=== PATIENT | female | born 1930 | race Caucasian/White ===

== ENCOUNTER 2018-06-13 13:33 | Emergency (ER) | payer MEDICARE, OTHER, MEDICAID ==
--- OUTSIDE RECORDS SUMMARY | 2018-06-13 14:10 | XMS REPORT | Continuity of Care Document ---
:1930 Author Organization [facility] Address [address], [place] [id number] Phone Care Team Providers Name Role Phone Ervin Davis PA-C Unavailable Unavailable Allergies, Adverse Reactions, Alerts Substance Reaction Status morphine Active Sulfa (Sulfonamide Antibiotics) Active aspirin Active Penicillins Active KETOROLAC TROMETHAMINE Active Medications Medication Instructions Dosage Effective Dates Status Comments (start - stop) IBANDRONATE SODIUM TAKE 1 TABLET BY 150 MG - Active 150 MG TAB MOUTH EVERY MONTH ON THE SAME DAY. TAKE WITH FULL GLASS OF WATER AND REMAIN UPRIGHT FOR 60 MINUTES prednisone 1 mg take 1 - 2 Tablet 1-2 Tablet - Active tablet by Oral route every morning with food or; as directed gabapentin 100 mg take 1 - 3 Capsule 1-3 Capsule - Active capsule by Oral route every day Acidophilus capsule - Active MIRALAX (unknown take 1 packet by Not Available - Active strength) oral route every day mixed with 8 oz. water, juice, soda, coffee or tea as needed potassium chloride take 1 tablet by 20 MEQ - Active ER 20 mEq oral route every tablet,extended day with food release propranolol 40 mg take 1 tablet by 40 MG - Active tablet oral route every day Flovent Diskus 100 inhale 1 puff by 100 MCG - Active mcg/actuation powder inhalation route 2 for inhalation times every day simvastatin 5 mg take 1 tablet by 5 MG - Active tablet oral route every day in the evening Nexium 40 mg take 1 capsule by 40 MG - Active capsule,delayed oral route every release day Spiriva with inhale 1 capsule 18 MCG - Active HandiHaler 18 mcg & (18MCG) by inhalation Caps inhalation route every day Tylenol 325 mg Tab PRN as needed - Active multivitamin Tab take 1 tablet by - Active oral route every day with food Problems Condition Effective Dates Clinical Status Comments (start - stop) Giant cell arteritis with polymyalgia rheumatica Age-related osteoporosis without current pathological fracture Other detention drug therapy Raynaud's disease w/o gangrene Giant cell arteritis with polymyalgia rheumatica Age-related osteoporosis without current pathological fracture 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 Pain in right shoulder Giant cell arteritis with polymyalgia rheumatica Age-related osteoporosis without current pathological fracture Giant cell arteritis with polymyalgia rheumatica Age-related osteoporosis without current pathological fracture Giant cell arteritis with polymyalgia rheumatica Age-related osteoporosis without current pathological fracture Polymyalgia rheumatica Age-related osteoporosis without current pathological fracture Giant cell arteritis with polymyalgia rheumatica Age-related osteoporosis without current pathological fracture Mycobacterial infection, unspecified Giant cell arteritis with polymyalgia rheumatica Age-related osteoporosis without current pathological fracture Polymyalgia rheumatica Age-related osteoporosis without current pathological fracture Polymyalgia rheumatica Age-related osteoporosis without current pathological fracture Polymyalgia rheumatica Age-related osteoporosis without current pathological fracture Polymyalgia rheumatica Polymyalgia rheumatica Age-related osteoporosis without current pathological fracture Polymyalgia rheumatica Age-related osteoporosis without current pathological fracture Polymyalgia rheumatica Age-related osteoporosis without current pathological fracture Osteoporosis - Active Polymyalgia rheumatica - Active Mapped from [facility] Chronic Conditions table on 08/09/2014 by the ICD9 to SNOMED Bulk Mapping Utility. The mapped diagnosis code was Polymyalgia rheumatica, 725, added by Mauro Fajardo MD, with responsible provider Mauro Fajardo MD. Onset date 12/24/2011; last addressed on 03/17/2014. Rotator cuff syndrome - Active Mapped from [facility] Chronic Conditions table on 09/22/2014 by the ICD9 to SNOMED Bulk Mapping Utility. The mapped diagnosis code was Bursitis shoulder, 726.10, added by Imani Monte, with responsible provider Imani Boothe PA-C. Onset date 12/25/2012; last addressed on 12/25/2012. Peptic ulcer - Active Mapped from [facility] Chronic Conditions table on 08/09/2014 by the ICD9 to SNOMED Bulk Mapping Utility. The mapped diagnosis code was PUD, 533.90, added by Mauro Fajardo MD, with responsible provider Mauro Fajardo MD. Onset date 12/24/2011; last addressed on 12/24/2011. Degeneration of - Active Mapped from [facility] Chronic intervertebral disc Conditions table on 08/09/2014 by the ICD9 to SNOMED Bulk Mapping Utility. The mapped diagnosis code was Degeneration of intervertebral disc, site unspecif, 722.6, added by Mauro Fajardo MD, with responsible provider Mauro Fajardo MD. Onset date 12/24/2011; last addressed on 04/05/2013. Degenerative joint - Active Mapped from [facility] Chronic disease involving Conditions table on multiple joints 08/09/2014 by the ICD9 to SNOMED Bulk Mapping Utility. The mapped diagnosis code was Osteoarthritis, 715.09, added by Mauro Fajardo MD, with responsible provider Mauro Fajardo MD. Onset date 12/24/2011; last addressed on 12/25/2012. Rheumatoid factor - Active negative Procedures Procedure Date No information Results Test Name Date and Time Measure Units Reference Range Abnormal Flag Status Comments No information Advance Directives Directive Yes / No Effective Date File Name No information Encounters Encounter Practice Location Reason(s) Diagnoses Date Provider Providers Description For Visit Copied on Encounter Arthritis Arthritis [facility] SHELL Mueller. Reji Mendoza 8 5794 PLLC, 5794 PLLC [facility], [place], [place], [id number], [id number], [place]. [place] tel:[phone] tel:[phone] Arthritis Arthritis Giant cell [facility] arteritis with SHELL Mueller. Provider: Reji Mendoza polymyalgia 8 5794 Kay[facility], 5794 PLLC rheumaticaAge- [facility] Ever CEBALLOS, [facility], [address] [facility], osteoporosis [place], [place], [place], [place], [place], [place] [id number], [place], [address]. [id number], pathological [place]. tel:[phone] [place] fractureOther tel:+ [phone] tel:[phone] detention drug [phone] lting [id number] therapyRaynaud Provider: 's disease w/o Meggan gangarima Mobley, [address] [facility], [place], [address]. tel:[phone] alist: Ted Gardiner MD, [address] [place], [address]. tel:[phone] lting Provider: Mike Frey MD, [address] [place], [address]. tel:[phone] [facility] Provider: Ny Olmstead MD, [address] [place] [address], [address]. tel:[phone] Arthritis Arthritis [facility] SHELL Mueller. [facility] 8 5794 PLLC, 5794 PLLC [facility], [place], [place], [place], [place], [place], [id number], [id number], [place]. [place] tel:[phone] tel:[phone] Arthritis Arthritis Giant cell [facility] arteritis with SHELL Mueller. Provider: [facility] polymyalgia 8 5794 Kaylen [facility], 5794 PLLC rheumaticaAge- [facility] Ever CEBALLOS, [facility], [address] [facility], [facility], , [place], [place], [place], [place], current [id number], [place], [address]. [id number], pathological [place]. tel:[phone] [place] fractureOther tel:[phone] tel:[phone] detention drug [phone] lting [phone] therapyPain in Provider: right shoulder Meggan Mobley, [address] [facility], [place], [address]. tel:[phone] alist: Jeremias Lowry MD, [address] [facility] [address], [place], [address]. tel:[phone] lting Provider: Mike Frey MD, [address] [place], [address]. tel:[phone] ring Provider: [place], [address] [place] [address], [address]. tel:[phone] Arthritis Arthritis May-0 [facility] 4-201 SHELL Mueller. [facility] 8 5794 PLLC, [address] [facility], [place], [place], [place], [id number], [id number], [place]. [place] tel:[phone] tel:[phone] Arthritis Arthritis Giant cell Apr-2 [facility] Consulting [facility] arteritis with 3 SHELL Mueller. Provider: Reji Mendoza polymyalgia 8 5794 Kaylen [facility], 5794 PLLC rheumaticaAge- [facility] Curtis MD, [facility], [address] [place], osteoporosis [place], [place], [place], [place], [place], [place], [place] [id number], [place], [address]. [id number], pathological [place]. tel:[phone] [place] fracture tel:[phone] tel:[phone] lting [id number] Provider: Meggan Mobley, [address] [place] [address], [place], [address]. tel:[phone] alist: Jeremias Lowry MD, [address] [facility] [address], [place], [address]. tel:[phone] lting Provider: Mike Frey MD, [address] [place], [address]. tel:[phone] ring Provider: Ny Olmstead MD, [address] [place] [address], [address]. tel:[phone] Arthritis Arthritis Giant cell Dec-1 [facility] arteritis with SHELL Mueller. Provider: Reji Mendoza polymyalgia 7 5794 Kaylen [facility], 5794 PLLC rheumaticaAge- Nadeem Curtis MD, [facility], [address] [place], osteoporosis [place], , [place], [place], [place], [place], [place] [id number], [place], [address]. [id number], pathological [place]. tel: [place] fracture tel: [phone] tel:[phone] lting [phone] Provider: Meggan Mobley, [address] [place] [address], [place], [address]. tel:[phone] alist: Jeremias Lowry MD, [address] [facility] [address] [facility], [place], [address]. tel:[phone] lting Provider: Mike Frey MD, [facility] [place], [address]. tel:[phone] ring Provider: Ny Olmstead MD, [address] [place] [address], [address]. tel:[phone] Arthritis Arthritis Giant cell Sep- [facility] arteritis with SHELL Mueller. Provider: [facility] polymyalgia 7 5794 Kaylen Mezu [facility], 5794 PLLC rheumaticaAge- [facility] Ever CEBALLOS, [facility], [facility], osteoporosis [place], , [place], [place], [place], [place], current [id number], [place], [address]. [id number], pathological [place]. tel: [place] fracture tel: [phone] tel:[phone] lting [phone] Provider: Meggan Mobley, [address] [place] [address], [place], [address]. tel:[phone] alist: Jeremias Lowry MD, [address] [facility] [address] [facility], [place], [address]. tel:[phone] lting Provider: Mike Frey MD, [facility] [place], [address]. tel:[phone] ring Provider: Ny Olmstead MD, [address] [place] [address], [address]. tel:[phone] Arthritis Arthritis Polymyalgia Rosalino-2 Susan [facility] [place] [facility] rheumaticaAge- SHELL Mueller. Provider: [facility] related 7 5794 Kaylen Mezu [facility], 5794 PLLC osteoporosis [facility] Curtis MD, [facility] without [place], [address] [place], current [place], [place], [place], pathological [place], [place], [place], fracture [id number], [place], [address]. [id number], [place]. tel:[phone] [place] tel:[phone] tel:[phone] lting [id number] Provider: Meggan Mobley, [address] [place] [address], [place], [address]. tel:[phone] alist: Jeremias Lowry MD, [address] [facility] [address], [place], [address]. tel:[phone] lting Provider: Mike Frey MD, [address] [facility], [place], [address]. tel:[phone] ring Provider: [place], [address] [place] [address], [address]. tel:[phone] Arthritis Arthritis Giant cell Apr-2 Tana CEBALLOS Consulting [facility] arteritis with 201 Mauro. Provider: Associates Reji polymyalgia 7 5794 Skyler PLLC, 5794 PLLC rheumaticaAge- [facility] Willy [facility] related MD Chavez, [address] [place], osteoporosis [place], [facility] [place], without [place], [place], [place], current [id number], [place], [place], [id number], [place]. [address]. [place] fractureMycoba tel:+ tel: tel:+ cterial [phone] [id number] infection, lting unspecified Provider: Meggan Mobley, [address] [facility], [place], [address]. tel:[phone] alist: Jeremias Lowry MD, [address] [facility] [address], [place], [address]. tel:[phone] ring Provider: Ny Olmstead MD, [address] [place] [address], [address]. tel:[phone] Arthritis Arthritis Giant cell Mar-0 [place]-[facility] [place] [facility] arteritis with 3-201 bhavana Elizondo. Provider: [facility] polymyalgia 7 5794 Skyler PLLC, 5794 PLLC rheumaticaAge- [facility] related MD Chavez, [address] [place], osteoporosis [place], [place], without [place], [place], [place], current [id number], [place], [place], [id number], [place]. [address]. [place] fracture tel: tel: tel:[phone] [phone] lting Provider: Meggan Mobley, [address] [place] [address], [place], [address]. tel:[phone] alist: Jeremias Lowry MD, [address] [facility] [address], [place], [address]. tel:[phone] ring Provider: Ny Olmstead MD, [address] [place] [address], [address]. tel:[phone] Arthritis Arthritis Polymyalgia Anshul- Rybinski [facility] rheumaticaAge- 1201 SHELL Mueller. Provider: Associates [facility] related 7 5794 Skyler RAMIREZ, 5794 PLLC osteoporosis [facility] Willy [facility] without MD Chavez, [address] [place], current [place], [place], pathological [place], [place], [place], fracture [id number], [place], [place], [id number], [place]. [address]. [place] tel: tel: tel:[phone] [phone] lting Provider: Meggan Mobley, [address] [place] [address], [place], [address]. tel:[phone] alist: Jeremias Lowry MD, [address] [facility] [address], [place], [address]. tel:[phone] ring Provider: Ny Olmstead MD, [address] [place] [address], [address]. tel:[phone] Arthritis Arthritis Polymyalgia Sep-2 Rybinski [facility]umaticWater[facility] Hospitale SHELL Mueller. Provider: Associates Associates related 6 5794 Skyler PLLC, 5794 PLLC osteoporosis [place] Willy [facility] without Chavez, , [address] [place], current [place], [place], pathological [place], [place], [place], fracture [id number], [place], [id number], [place]. [address]. [place] tel:+[phone] tel:+[phone] tel:[phone] [id number] lting Provider: Meggan Mobley, [address] [place] [address], [place], [address]. tel:[phone] ring Provider: Ny Olmstead MD, [address] [place] [address], [address]. tel:[phone] Arthritis Arthritis Polymyalgia Ameya-2 bini [facility] SHELL Mueller. Provider: Associates Associates related 6 5794 Skyler PLLC, 5794 PLLC osteoporosis [place] Willy [facility] without Chavez, , [address] [place], current [place], [place], [place], [place], [place], fracture [id number], [place], [id number], [place]. [address]. [place] tel:+[phone] tel:+315 tel:[phone] [id number] lting Provider: Meggan Mobley, [address] [place] [address], [place], [address]. tel:[phone] ring Provider: Ny Olmstead MD, [address] [place] [address], [address]. tel:[phone] Arthritis Arthritis Polymyalgia Apr-2 [place] rheumatica SHELL Mueller. Provider: Reji Mendoza 6 5794 [facility], 5794 PLLC [facility] [facility] MD Chavez, [address] [place], [place], [place], [place], [place], [place], [id number], [place], [id number], [place]. [address]. [place] tel:+[phone] tel:+315 tel:[phone] [id number] lting Provider: Meggan Mobley, [address] [place] [address], [place], [address]. tel:[phone] ring Provider: Ny Olmstead MD, [address] [place] [address], [address]. tel:[phone] Arthritis Arthritis Polymyalgia [facility] rheumaticaAg SHELL Mueller. Provider: Reji Mendoza related 6 5794 [facility], 5794 PLLC osteoporosis [facility] Willy [facility] without MD Chavez, [address] [place], current [place], [place], [place], [place], [place], fracture [id number], [place], [id number], [place]. [address]. [place] tel:+[phone] tel:+315 tel:[phone] [id number] lting Provider: Meggan Mobley, [address] [place] [address], [place], [address]. tel:[phone] ring Provider: Ny Olmstead MD, [address] [place] [address], [address]. tel:[phone] Arthritis Arthritis Polymyalgia [facility] SHELL Mueller. Provider: Reji Mendoza related 6 5794 [facility], 5794 PLLC osteoporosis [facility] Willy [facility] without MD Chavez, [address] [place], current [place], [place], [place], [place], [place], fracture [id number], [place], [place], [id number], [place]. [address]. [place] tel:+[phone] tel:+[phone] tel:[phone] [id number] lting Provider: Meggan Mobley, [address] [place] [address], [place], [address]. tel:[phone] ring Provider: Ny Olmstead MD, [address] [place] [address], [address]. tel:[phone] Arthritis Arthritis Polymyalgia Nov-0 [facility] rheumaticaAge- PA-Mell Mueller. Provider: Reji Mendoza [facility] 5 5794 Skyler RAMIREZ, 5794 PLLC osteoporosis [facility] MD Chavez, [address] [place], [facility], [facility], [facility], [place], [place], fracture [id number], [place], [place], [id number], [place]. [address]. [place] tel:+[phone] tel:+3152 tel:[phone] 196961 lting Provider: Meggan Mobley, [facility], [place], [address]. tel:[phone] ring Provider: Ny Olmstead MD, [address] [place] [address], [address]. tel:[phone] Arthritis Arthritis Feb- [facility] PA-Mell Mueller. Provider: Reji Mendoza 5 5794 Ny RAMIREZ, 5794 PLLC Nadeem Olmstead MD, [facility], [address] [place] [address], [place], [place], [place], [place], [place], [place], [id number], [place], [address]. [id number], [place]. tel:[phone] [place] tel:[phone] tel:[phone] Arthritis Arthritis Apr-2 [facility] PA-C Provider: Reji Mendoza 3 [place]. Ny RAMIREZ, 5794 PLLC Keyla Olmstead MD, [address], [place], [place], [place], [place], [place], [place], [place], [address]. [id number], [id number], tel:[phone] [facility]. 65[address]30 tel:+[phone] tel:[phone] Arthritis Arthritis Aug- [facility] 0-201 SHELL Diallo. Provider: [facility] 1 5794 [facility], 5794 PLL Nadeem Olmstead MD, [facility], [address] [place] [address], [place], [place], [place], [place], [id number], [place], [address]. [id number], . tel:[phone] tel:[phone] tel:[phone] Family History Family Member Diagnosis Age At Onset Mother Heart Failure 83 Father Heart failure 90 Immunizations Vaccine Date Status Comments Influenza, injectable, MDCK, administered Note: approx ; Source : Other Flucelvax Quad 2017-2018Y Provider Influenza, injectable, administered Note: approx per pt ; Source : quadrivalent, split virus, 18 Other Provider years or older Afluria Quad 9153-5171 Influenza, injectable, administered Note: approx ; Source: Other trivalent, split virus, 4 Provider years and older, Fluvirin 5975-7809 Flu (split) (3 yrs or older) administered Note: Invalid documented admin date was . ; Source: Other Provider Zoster administered Source: New Immunization Record pneumo (2 yrs or older) administered Source: Other Provider (PPV23) Payers Payer name Insurance type Covered alliance party ID Authorization(s) Medicare [id number] [facility] CI [id number] Social History Type Description Quantity Date Captured Comments Alcohol Use Details Unknown Caffeine Use Details Unknown Tobacco Use Status Unknown Smoking Status Unknown Sex Female Vital Signs Date / Height Weight BMI Pulse Blood Temperature Respiratory Body Head BMI Pulse Inhaled Time: Rate Pressure Rate Surface Circumference percentile Ox Ox Area No information Chief Complaint And Reason For Visit No information Reason For Referral Reason For Referral No information Plan Of Treatment Date Type Action Status Referral Ordered: ordered *SHOULDER X-RAY, COMPLETE, 2 VIEW Right shoulder Appointment Malka Astorga BOOKED History Of Present Illness Encounter Date Complaint History Of Present Illness No information Functional Status Date Functional Assessment No information Medications Administered Medication Instructions Dosage Effective Dates (start - stop) Status Comments No information Instructions Date Instruction Additional Information Labs ordered to check blood counts, liver and kidney functions to monitor safety of medication. Discussed / Reviewed Labs call if symptoms worsen maintain adequate water intake every day Maintain adequate core warmth. Wear warm, wind-proof gloves and boots. Risks/benefits of medications reviewed Avoid sun and use high SPF sunblock Labs ordered to check disease activity. Risks/benefits of medications reviewed Avoid sun and use high SPF sunblock Diet: Instructed on appropriate calcium and vitamin D intake. Labs ordered to check disease activity. Labs ordered to check blood counts, liver and kidney functions to monitor safety of medication. Discussed / Reviewed Labs call if symptoms worsen maintain adequate water intake every day Risks/benefits of medications reviewed Labs ordered to check disease activity. Discussed / Reviewed Labs call if symptoms worsen maintain adequate water intake every day Risks/benefits of medications reviewed Diet: Instructed on appropriate calcium and vitamin D intake. Labs ordered to check disease activity. Discussed / Reviewed Labs Patient plan printed and given along with recommendations call if symptoms worsen maintain adequate water intake every day Labs ordered to check disease activity. Discussed / Reviewed Labs Patient plan printed and given along with recommendations call if symptoms worsen maintain adequate water intake every day Reviewed importance of compliance/adherence to medications prescribed Risks/benefits of medications reviewed Risks/benefits of medications reviewed Labs ordered to check disease activity. Discussed / Reviewed Labs Patient plan printed and given along with recommendations call if symptoms worsen maintain adequate water intake every day Patient plan printed and given along with recommendations call if symptoms worsen 15mg day of prednisone for 10days,then 10mg for 10 d,then 5mg d for 10d Risks/benefits of medications reviewed Labs ordered to check disease activity. Discussed / Reviewed Labs call at 4pm to talk to Dr. Fajardo about sed rate call if symptoms worsen Discussed / Reviewed Labs Patient plan printed and given along with recommendations call if symptoms worsen maintain adequate water intake every day Risks/benefits of medications reviewed Labs ordered to check disease activity. Risks/benefits of medications reviewed Diet: Instructed on appropriate calcium and vitamin D intake. Labs ordered to check disease activity. Discussed / Reviewed Labs Patient plan printed and given along with recommendations call if symptoms worsen maintain adequate water intake every day Diet: Instructed on appropriate calcium and vitamin D intake. Limited exercise
--- OUTSIDE RECORDS SUMMARY | 2018-06-13 14:10 | XMS REPORT | Continuity of Care Document ---
:1930 Author Organization [facility] Address [address], [place] [id number] Phone Care Team Providers Name Role Phone [...] capsule by Oral route every day Acidophilus - Active capsule MIRALAX (unknown take 1 packet by Not [...] puff by 100 MCG - Active mcg/actuation inhalation route 2 powder for times every day inhalation simvastatin 5 mg take 1 tablet by 5 MG - Active tablet oral route every day in the evening Nexium 40 mg take 1 capsule by 40 MG - Active capsule,delayed oral route every release day Spiriva with inhale 1 capsule 18 MCG - Active HandiHaler 18 mcg (18MCG) by & inhalation Caps inhalation route every day Tylenol 325 mg Tab PRN as needed - Active multivitamin Tab take 1 tablet by - Active oral route every day with food rifampin 300 mg take 2 tabs every - No Longer capsule fri, fri and fri Active azithromycin 500 take 1 tablet by - No Longer mg tablet oral route every Active mon, wed, and fri ethambutol 400 mg take 3 tabs every - No Longer tablet mon, wed and fri Active Problems Condition Effective Dates Clinical Status Comments (start - stop) Giant cell arteritis with polymyalgia rheumatica Age-related osteoporosis without current pathological fracture Other retirement drug therapy Raynaud's disease w/o gangrene Giant cell arteritis with polymyalgia rheumatica 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 The mapped diagnosis code was Polymyalgia rheumatica, 725, added by Mauro Fajardo MD, with responsible provider Mauro Fajardo MD. Onset date 12/24/2011; last addressed on 03/17/2014. Rotator cuff syndrome - Active Mapped from [facility] Chronic Conditions table on 09/22/2014 by the ICD9 to SNOMED Bulk Mapping Utility. The mapped diagnosis code was Bursitis shoulder, 726.10, added by Imani Monte, with responsible provider Imani Boothe PA-C. Onset date 12/25/2012; last addressed on 12/25/2012. Peptic ulcer - Active Mapped from [facility] Chronic Conditions table on 08/09/2014 by the ICD9 to SNOMED Bulk Mapping Utility. The mapped diagnosis code was PUD, 533.90, added by Mauro Fajardo MD, with responsible provider Mauro Fajardo MD. Onset date 12/24/2011; last addressed on 12/24/2011. Degeneration of - Active Mapped from [facility] Chronic intervertebral disc Conditions table on 08/09/2014 by the ICD9 to SNOMED Bulk Mapping Utility. The mapped diagnosis code was Degeneration of intervertebral disc, site unspecif, 722.6, added by Mauro Fajardo MD, with responsible provider Mauro Fajardo MD. Onset date 12/24/2011; last addressed on 04/05/2013. Degenerative joint - Active Mapped from [facility] Chronic disease involving Conditions table on multiple joints 08/09/2014 by the ICD9 to SNOMED Bulk Mapping Utility. The mapped diagnosis code was Osteoarthritis, 715.09, added by Mauro Fajardo MD, with responsible provider Mauro Fajardo MD. Onset date 12/24/2011; last addressed on 12/25/2012. Rheumatoid factor - Active negative Procedures Procedure Date ROUTINE VENIPUNCTURE COMPLETE CBC W/AUTO DIFF WBC RBC SED RATE, AUTOMATED ASSAY OF CREATININE TRANSFERASE (AST) (SGOT) ASSAY OF SERUM ALBUMIN ANTINUCLEAR ANTIBODIES COMPLEMENT, ANTIGEN OFFICE/OUTPATIENT VISIT, EST NUCLEAR ANTIGEN ANTIBODY DNA ANTIBODY Results Test Name Date and Time Measure Units Reference Range Abnormal Flag Status Comments Panel Description: CBC Final WBC 16:33:00 6.8 10 3.7-10.1 Final RBC 16:33:00 4.72 10 3.50-5.50 Final HGB 16:33:00 10.2 g/dL 12.0-16.0 L Final HCT 16:33:00 34.9 % 36.0-48.0 L Final MCV 16:33:00 73.9 fL 80.0-100.0 L Final MCH 16:33:00 21.7 pg 26.0-34.0 L Final MCHC 16:33:00 29.3 g/dL 31.0-37.0 L Final RDW 16:33:00 13.5 % 10.0-15.0 Final PLATELETS 16:33:00 203 10 150-500 Final MPV 16:33:00 7.2 fL 6.0-10.0 Final CHRIS# 16:33:00 4.87 10 2.10-8.00 Final LYM# 16:33:00 1.39 10 1.00-5.00 Final MONO# 16:33:00 0.37 10 0.10-1.00 Final EOS# 16:33:00 0.1 10 0.0-0.5 Final BASO# 16:33:00 0.0 10 0.0-0.2 Final CHRIS% 16:33:00 71.6 % 50.0-80.0 Final LYM% 16:33:00 20.4 % 25.0-50.0 L Final MONO% 16:33:00 5.5 % 2.0-10.0 Final EOS% 16:33:00 1.9 % 0.0-5.0 Final BASO% 16:33:00 0.5 % 0.0-4.0 Final Panel Description: Chromatin IgG Final Chromatin 16:33:00 3.0 0.0-20.0 Final Interpretation: Negative <20; Moderate Positive 20-60; Positive >60.

Panel Description: ESR Final ESR 16:33:00 21 mm/Hr 0-20 H Final Panel Description: ALBUMIN Final ALB 16:33:00 3.4 g/dL 3.4-4.4 Final Panel Description: AST Final AST 16:33:00 19 U/L 15-37 Final Panel Description: C4 Final C4 16:33:00 18.9 mg/dL 14.7-40.3 Final Panel Description: CREATININE Final CREATININE 16:33:00 1.0 mg/dL 0.6-1.2 Final eGFR 16:33:00 52.6 mL/min/1.73m Final Advance Directives Directive Yes / No Effective Date File Name No information Encounters Encounter Practice Location Reason(s) Diagnoses Date Provider Providers Description For Visit Copied on Encounter OFFICE/OUTPA Arthritis Arthritis GCA (chief Giant cell [facility] Consulting TIENT VISIT, Health Health complaint) arteritis with SHELL Mueller. Provider: LARA Mendoza polymyalgia 8 5794 [facility], 5794 PLLC rheumaticaAge- [facility] Ever [facility], [facility], [address] [facility], osteoporosis [facility], [place], [facility], [place], [place], [place] [id number], [place], [address]. [id number], pathological [place]. tel:[phone] [place] fractureOther tel:[phone] tel:[phone] retirement drug [phone] lting [phone] therapyRaynaud Provider: 's disease w/o Meggan gangrene Leandra, [address] [facility], [place], [address]. tel:[phone] alist: Ted Gardiner MD, [address] [place], [address]. tel:[phone] lting Provider: Mike Frey MD, [address] [place], [address]. tel:[phone] ring Provider: [place], [address] [place] [address], [address]. tel:[phone] Arthritis Arthritis [facility] SHELL Mueller. [facility] 8 5794 PLLC, 5794 PLLC [facility], [place], [place], [place], [id number], [id number], [place]. [place] tel:[phone] tel:[phone] Arthritis Arthritis Giant cell Dec- [facility] arteritis with 5- SHELL Mueller. Provider: [facility] polymyalgia 8 5794 [facility], 5794 PLLC rheumaticaAge- Nadeem Curtis MD, [facility], [address] [place], osteoporosis [place], [address], [place], without [place], [place], [place], [place] [id number], [place], [address]. [id number], pathological [place]. tel:[phone] [place] fractureOther tel:[phone] tel:[phone] retirement drug [phone] lting [phone] therapyPain in Provider: right shoulder Meggan Mobley, [facility], [place], [address]. tel:[phone] alist: Jeremias Lowry MD, [address] [facility] [address], [place], [address]. tel:[phone] lting Provider: Mike Frey MD, [address] [place] [address], [address]. tel:[phone] [facility] Provider: Ny Olmstead MD, [address] [place] [address], [address]. tel:[phone] Arthritis Arthritis May-0 [facility] 4- SHELL Mueller. [facility] 8 5794 PLLC, 5794 PLLC [facility], [place], [place], [place], [id number], [id number], [place]. [place] tel:[phone] tel:[phone] Arthritis Arthritis Giant cell Aug- [facility] arteritis with 3-201 SHELL Mueller. Provider: [facility] polymyalgia 8 5794 [facility], 5794 PLLC rheumaticaAge- [facility] MD, [facility], [address] [facility], osteoporosis [place], [place], [place], without [place], [place], [place], [place] [id number], [place], [address]. [id number], pathological [place]. tel:+ [place] fracture tel: [phone] tel:[phone] lting [phone] Provider: Meggan Mobley, [address] [place] [address], [place], [address]. tel:[phone] alist: Jeremias Lowry MD, [address] [place] [address] [address] [facility], [place], [address]. tel:[phone] lting Provider: Mike Frey MD, [facility] [place], [address]. tel:[phone] ring Provider: Ny Olmstead MD, [address] [place] [address], [address]. tel:[phone] Arthritis Arthritis Giant cell May- [facility] arteritis with SHELL Mueller. Provider: [facility] polymyalgia 7 5794 [facility], 5794 [facility]C [facility] Ever [facility], [facility], [address] [facility], osteoporosis [place], [place], [place], without [place], [place], [place], [place] [id number], [place], [address]. [id number], pathological [place]. tel: [place] fracture tel: [phone] tel:[phone] lting [id number] Provider: Meggan Mobley, [facility]0 [facility] [place], [place], [address]. tel:[phone] alist: Jeremias Lowry MD, [address] [place] [address] [address] [facility], [place], [address]. tel:[phone] lting Provider: Mike Frey MD, [facility] [place], [address]. tel:[phone] ring Provider: Ny Olmstead MD, [address] [place] [address], [address]. tel:[phone] Arthritis Arthritis Giant cell Sep- [facility] Consulting [facility] arteritis with SHELL Mueller. Provider: Reji Mendoza polymyalgia 7 5794 [facility], 5794 PLLC rheumaticaAge- Nadeem Curtis MD, [facility] [place], [address] [facility] [place], osteoporosis [place], [place], [place], without [place], [place], [place], [place] [id number], [place], [address]. [id number], pathological [place]. tel:[phone] [place] fracture tel:[phone] tel:[phone] lting [id number] Provider: Meggan Mobley, [address] [place] [address], [place], [address]. tel:[phone] alist: Jeremias Lowry MD, [address] [place] [address] [address], [place], [address]. tel:[phone] lting Provider: Mike Frey MD, [address] [place], [address]. tel:[phone] [facility] Provider: Ny Olmstead MD, [address] [place] [address], [address]. tel:[phone] Arthritis Arthritis Polymyalgia Rosalino- [facility] Consult[facility] rheumaticaAge- SHELL Mueller. Provider: Associates Reji related 7 5794 [facility], 5794 PLLC osteoporosis Nadeem Curtis MD, [facility] [place], [address] [facility], current [place], St, [place], pathological [place], [place], [place], fracture [id number], [place], [address]. [id number], [place]. tel:[phone] [place] tel:[phone] tel:[phone] lting [id number] Provider: Meggan Mobley, [address] [place] [address], [place], [address]. tel:[phone] alist: Jeremias Lowry MD, [address] [facility] [address] [place] [address], [address]. tel:[phone] lting Provider: Mike Frey MD, [address] [place], [address]. tel:[phone] ring Provider: Ny Olmstead MD, [address] [place] [address], [address]. tel:[phone] Arthritis Arthritis Giant cell Apr-2 Tana CEBALLOS Consulting [facility] arteritis with 6201 Mauro. Provider: Associates Associates polymyalgia 7 5794 Skyler [facility], 5794 PLLC rheumaticaAge- [place] [facility] [place] related MD Chavez, [address] [place], osteoporosis [place], [place], without [place], [place], [place], current [id number], [place], [place], [id number], [place]. [address]. [place] fractureMycoba tel: tel:+ tel: cterial [phone] [id number] infection, lting unspecified Provider: Meggan Mobley, [address] [place] [address], [place], [address]. tel:[phone] alist: Jeremias Lowry MD, [address] [facility] [address] [facility], [place], [address]. tel:[phone] ring Provider: Ny Olmstead MD, [address] [place] [address], [address]. tel:[phone] Arthritis Arthritis Giant cell Mar-0 [facility] arteritis with 201 bhavana Elizondo. Provider: [facility] polymyalgia 7 5794 [facility], 5794 PLLC rheumaticaAge- [place] [facility] [place] related MD Chavez, [address] [place], osteoporosis [place], [place], without [place], [place], [place], current [id number], [place], [id number], [place]. [address]. [place] fracture tel:+ tel:+ tel:[phone] [id number] lting Provider: Meggan Mobley, [address] [place] [address], [place], [address]. tel:[phone] alist: Jeremias Lowry MD, [address] [place] [address], [address]. tel:[phone] ring Provider: Ny Olmstead MD, [address] [place] [address], [address]. tel:[phone] Arthritis Arthritis Polymyalgia [facility] SHELL Mueller. Provider: Associates [facility] related 7 5794 [facility], 5794 PLLC osteoporosis [facility] marycarmen Byrne MD, [address] [place], current [place], [facility] [place], pathological [place], [place], [place], fracture [id number], [place], [id number], [place]. [address]. [place] tel:[phone] tel:+315 tel:[phone] [id number] lting Provider: Meggan Mobley, [address] [place] [address], [place], [address]. tel:[phone] alist: Jeremias Lowry MD, [address] [place] [address], [place], [address]. tel:[phone] ring Provider: Ny Olmstead MD, [address] [place] [address], [address]. tel:[phone] Arthritis Arthritis Polymyalgia [facility] SHELL Mueller. Provider: Associates Associates related 6 5794 [facility], 5794 PLLC osteoporosis [facility] marycarmen Byrne MD, [address] [place], current [place], [facility] [place], pathological [place], [place], [place], fracture [id number], [facility] [id number], [place]. [address]. [place] tel:+[phone] tel:+[phone] tel:[phone] [id number] lting Provider: Meggan Mobley, [address] [place] [address], [place], [address]. tel:[phone] ring Provider: Ny Olmstead MD, [address] [place] [address], [address]. tel:[phone] Arthritis Arthritis Polymyalgia Ameya-2 [facility] rheumaticaAge- SHELL Mueller. Provider: Reji Mendoza related 6 5794 [facility], 5794 PLLC osteoporosis [facility] without MD Chavez, [address] [place], current [place], [facility] [place], [facility] [place], [place], [place], fracture [id number], [place], [id number], [place]. [address]. [place] tel:[phone] tel:[phone] tel:[phone] [id number] 727261 lting Provider: Meggan Mobley, [address] [place] [address], [place], [address]. tel:[phone] ring Provider: Ny Olmstead MD, [address] [place] [address], [address]. tel:[phone] Arthritis Arthritis Polymyalgia Apr-2 [facility] rheumatica SHELL Mueller. Provider: Reji Mendoza 6 5794 [facility], 5794 PLLC [facility] WillyUP Health Systemflorence Byrne MD, [address] [place], [place], [facility], [place], [place], [place], [id number], [place], [id number], [place]. [address]. [place] tel:[phone] tel:[phone] tel:[phone] [id number] lting Provider: Meggan Mobley, [address] [place] [address], [place], [address]. tel:[phone] ring Provider: Ny Olmstead MD, [address] [place] [address], [address]. tel:[phone] Arthritis Arthritis Polymyalgia Mar-1 [facility] SHELL Mueller. Provider: Reji Mendoza related 6 5794 [facility], 5794 PLLC osteoporosis [place] [facility] [place] without [place], , [address] [place], current [place], [place], pathological [place], [place], [place], fracture [id number], [place], [id number], [place]. [address]. [place] tel:+[phone] tel:+[phone] tel:[phone] [id number] lting Provider: Meggan Mobley, [address] [place] [address], [place], [address]. tel:[phone] ring Provider: Ny Olmstead MD, [address] [place] [address], [address]. tel:[phone] Arthritis Arthritis Polymyalgia [facility] SHELL Mueller. Provider: Reji Mendoza related 6 5794 [facility], 5794 PLLC osteoporosis [place] [place] without MD Chavez, [address] [place], current [place], [place], pathological [place], [place], [place], fracture [id number], [place], [id number], [place]. [address]. [place] tel:+[phone] tel:+[phone] tel:[phone] 048497 lting Provider: Meggan Mobley, [address] [place] [address], [place], [address]. tel:[phone] ring Provider: Ny Olmstead MD, [address] [place] [address], [address]. tel:[phone] Arthritis Arthritis Polymyalgia Apr- [facility] SHELL Mueller. Provider: Reji Mendoza related 5 5794 [facility], 5794 PLLC osteoporosis [place] without MD Chavez, [address] [place], current [place], [place], pathological [place], [place], [place], fracture [id number], [place], [place], [id number], [place]. [address]. [place] tel:+ tel:+ tel:[phone] [id number] lting Provider: Meggan Mobley, [address] [facility], [place], [address]. tel:[phone] ring Provider: Ny Olmstead MD, [address] [place] [address], [place], [address]. tel:[phone] [facility] PA-C Ervin. Provider: [facility] 5 5794 Ny RAMIREZ, 5794 PLLC Nadeem Olmstead MD, [facility], [address] [place] [address], [place], [place], [id number], [place], [address]. [id number], [place]. tel:+ tel: [phone] tel: [phone] Arthritis Arthritis Apr-[address] [facility] 3-201 PA-C Provider: Associates Reji 3 [place]. Ny PLLMell, 57Jessi PLLC Keyla Olmstead MD, [address], [place], [place], [place], [address]. [id number], [id number], tel:+[phone] [place]. 9[address] tel: tel:[phone] Arthritis [facility]thritis Apr-2 [facility] 0-201 PA-C Imani. Provider: [facility] 1 5794 Ny RAMIREZ, 5794 PLLC Nadeem Olmstead MD, [facility], [address] [place] [address], [place], [place], [id number], [place], [address]. [id number], [place]. tel:+[phone] tel:[phone] tel:[phone] Family History Family Member Diagnosis Age At Onset Mother Heart Failure 83 Father Heart failure 90 Immunizations Vaccine Date Status Comments Influenza, injectable, MDCK, administered Note: approx ; Source : Other Flucelvax Quad 2017-2018Y Provider Influenza, injectable, administered Note: approx per pt ; Source : quadrivalent, split virus, 18 Other Provider years or older Afluria Quad 8772-6362 Influenza, injectable, administered Note: approx ; Source: Other trivalent, split virus, 4 Provider years and older, Fluvirin 3005-2149 Flu (split) (3 yrs or older) administered Note: Invalid documented admin date was . ; Source: Other Provider Zoster administered Source: New Immunization Record pneumo (2 yrs or older) administered Source: Other Provider (PPV23) Payers Payer name Insurance type Covered republican ID Authorization(s) Medicare MB [id number] [facility] CI [id number] Social History Type Description Quantity Date Captured Comments Alcohol Use Details Caffeine Use Details coffee 4 cups per day Tobacco Use Status Ex-cigarette smoker Smoking Status Former smoker Smoking Tobacco Use Cigarette: No Details Available Cigarette: No Details Available Details Sex Female Vital Signs Date / Height Weight BMI Pulse Blood Temperature Respiratory Body Head BMI Pulse Inhaled Time: Rate Pressure Rate Surface Circumference percentile Ox Ox Area 61.00 141.00 26.6 in lbs 4 mm[Hg] 3:45 kg/m PM eter (2) Chief Complaint And Reason For Visit Most recent encounter only, dated '05/13/2018 15:40'. GCA (chief complaint). Description: The pain severity is 0/10. Patient denies having generalized morning stiffness. Reason For Referral Reason For Referral No information Plan Of Treatment Date Type Action Status Referral Ordered: ordered *SHOULDER X-RAY, COMPLETE, 2 VIEW Right shoulder Appointment Malka Astorga BOOKED History Of Present Illness Encounter Date Complaint History Of Present Illness GCA The pain severity is 0/10. Patient denies having generalized morning stiffness. Functional Status Date Functional Assessment No information [...]
[2018-06-13 14:41] VITALS: BP 144/53
--- NOTE | 2018-06-13 15:09 | UC ---
Respiratory Complaint HPI - HPI Summary HPI Summary: Patient is concerned as she has had multiple episodes of pneumonia, hx of COPD. she has been having SOB on exertion and denies fever - History of Current Complaint Chief Complaint: UCRespiratory Stated Complaint: COUGH CONGESTION Time Seen by Provider: 06/13/18 14:21 Hx Obtained From: Patient ?: No Onset/Duration: Sudden Onset, Lasting Days Timing: Constant Severity Initially: Mild Severity Currently: Mild Pain Intensity: 0 Character: Cough: Productive Aggravating Factors: Exertion, Deep Breaths Alleviating Factors: Nothing Associated Signs And Symptoms: Positive: Dyspnea, URI, Nasal Congestion, Sinus Discomfort - Allergies/Home Medications Allergies/Adverse Reactions: Allergies Allergy/AdvReac Type Severity Reaction Status Date / Time aspirin Allergy Severe throat Verified 06/13/18 14:22 swelling cefuroxime [From Ceftin] Allergy Unknown GI Upset Verified 06/13/18 14:22 hydroxyzine [From Atarax] Allergy Unknown Unknown Verified 06/13/18 14:22 Reaction Details ketorolac [From Acular] Allergy Unknown Unknown Verified 06/13/18 14:22 Reaction Details morphine Allergy Unknown confusion Verified 06/13/18 14:22 Penicillins Allergy Unknown Unknown Verified 06/13/18 14:22 Reaction Details Sulfa (Sulfonamide Allergy Unknown Unknown Verified 06/13/18 14:22 Antibiotics) Reaction Details MS Cefuroxime [From Ceftin] Allergy GI Upset Verified 06/13/18 14:22 Home Medications: Home Medications Abandronate Sodium MONTHLY 06/13/18 [History] Calcium Carb/Vitamin D3/Vit K1 [Viactiv 500-500-40 mg-Unt-Mcg] 1 chw PO [History] Esomeprazole(NF) [NexIUM(NF)] 40 mg PO DAILY 06/13/18 [History Confirmed ] Fluticasone DISKUS 100 MCG(NF) [Flovent Diskus 100 MCG(NF)] 1 puff INH DAILY 05/20 [History Confirmed 06/13/18] Polyethylene Glycol 3350* [Miralax*] 17 gm PO DAILY 06/13/18 [History Confirmed 06/13/18] Propranolol TAB* [Inderal TAB*] 40 mg PO DAILY 06/13/18 [History Confirmed 06/13] Simvastatin [Zocor 5 MG-] 5 mg PO DAILY 06/13/18 [History Confirmed 06/13/18] Spiriva Inhaler DEVICE* [Tiotropium Inhaler DEVICE*] 06/13/18 [History] predniSONE TAB* [Deltasone 1 MG TAB*] 1 mg PO DAILY 06/13/18 [History Confirmed 06/13/18] PMH/Surg Hx/FS Hx/Imm Hx Previously Healthy: Yes - Surgical History Surgical History: Yes Surgery Procedure, Year, and Place: green field filter safe for mri up to 1.5T only. lt ankle surgery. appy. tonsilectomy. [place]. cataracts. repaired bleeding ulcer - Family History Known Family History: Positive: Hypertension, Respiratory Disease - Social History Alcohol Use: Rare Substance Use Type: None Smoking Status (MU): Former Smoker Type: Cigarettes Length of Time of Smoking/Using Tobacco: 25 years Have You Smoked in the Last Year: No - Immunization History Most Recent Influenza Vaccination: 01/2014 Review of Systems All Other Systems Reviewed And Are Negative: Yes Constitutional: Positive: Negative Skin: Positive: Negative Eyes: Positive: Negative ENT: Positive: Sore Throat Respiratory: Positive: Shortness Of Breath, Cough Cardiovascular: Positive: Negative Gastrointestinal: Positive: Negative Genitourinary: Positive: Negative Motor: Positive: Negative Neurovascular: Positive: Negative Musculoskeletal: Positive: Negative Neurological: Positive: Negative Psychological: Positive: Negative Is Patient Immunocompromised?: No Physical Exam Triage Information Reviewed: Yes Appearance: Well-Appearing, Well-Nourished, Pain Distress Vital Signs: Initial Vital Signs Temp 97.8 F 06/13/18 14:31 Pulse 59 06/13/18 14:31 Resp 18 06/13/18 14:31 BP 144/53 06/13/18 14:31 Pulse Ox 99 06/13/18 14:31 Vital Signs Reviewed: Yes Eye Exam: Normal ENT: Positive: Pharyngeal erythema, TMs normal Dental Exam: Normal Neck exam: Normal Neck: Positive: Supple, Nontender, No Lymphadenopathy Respiratory Exam: Normal Respiratory: Positive: No respiratory distress, No accessory muscle use, Crackles - RLL Cardiovascular Exam: Normal Cardiovascular: Positive: RRR, No Murmur, Pulses Normal Abdomen Description: Positive: Nontender, No Organomegaly, Soft Musculoskeletal Exam: Normal Neurological Exam: Normal Psychological Exam: Normal Skin Exam: Normal UC Diagnostic Evaluation - Laboratory O2 Sat by Pulse Oximetry: 99 Respiratory Course/Dx - Course Course Of Treatment: hx obtained, exam performed ,meds reviewed, chest xray obtained. - Differential Dx/Diagnosis Differential Diagnosis/HQI/PQRI: Aspiration, Asthma, Bronchitis, Laryngitis, Lower Resp Infection Provider Diagnosis: Lower respiratory infection (e.g., bronchitis, pneumonia, pneumonitis, pulmonitis), COPD (chronic obstructive pulmonary disease) Discharge - Sign-Out/Discharge Documenting (check all that apply): Patient Departure All imaging exams completed and their final reports reviewed: No - Discharge Plan Condition: Stable Disposition: HOME Patient Education Materials: Bacterial Pneumonia (ED) Referrals: Ny Olmstead MD [Primary Care Provider] - Additional Instructions: 1. take the medication as prescribed. Please allow for 2 hours between calcium tablets and this medication 2. COntinue with your current medicationas 3. Get plenty of rest and use tylenol for pain or fever 4. If Shortness of breath or breathing becomes worse please report to ER for further evaluation - Billing Disposition and Condition Condition: STABLE Disposition: Home
--- NOTE | 2018-06-14 10:32 | UC ---
- Progress Note Progress Note: Radiologist reading of chest x-ray from Gen. 2018. There is no interpretation documented by the provider on that same date however there is a final diagnosis of lower respiratory infection and the patient's been started on doxycycline therefore there is no discrepancy. Course/Dx - Diagnoses Provider Diagnoses: Lower respiratory infection (e.g., bronchitis, pneumonia, pneumonitis, pulmonitis), COPD (chronic obstructive pulmonary disease) Discharge - Sign-Out/Discharge Documenting (check all that apply): Patient Departure All imaging exams completed and their final reports reviewed: Yes - Discharge Plan Condition: Stable Disposition: HOME Prescriptions: DOXYcycline CAP(*) [DOXYcycline 100MG CAP(*)] 100 mg PO BID #14 cap Patient Education Materials: Bacterial Pneumonia (ED) Referrals: Ny Olmstead MD [Primary Care Provider] - Additional Instructions: 1. take the medication as prescribed. Please allow for 2 hours between calcium tablets and this medication 2. COntinue with your current medicationas 3. Get plenty of rest and use tylenol for pain or fever 4. If Shortness of breath or breathing becomes worse please report to ER for further evaluation - Billing Disposition and Condition Condition: STABLE Disposition: Home
== END 2018-06-13 15:33 | disposition home or self-care (01) ==
LOC: UCCORT 13:33
DX: J22 Unspecified acute lower respiratory infection (principal); J44.9 Chronic obstructive pulmonary disease, unspecified; Z88.0 Allergy status to penicillin; Z88.1 Allergy status to other antibiotic agents; Z88.5 Allergy status to narcotic agent; Z88.8 Allergy status to other drugs, medicaments and biological substances; Z88.6 Allergy status to analgesic agent; Z87.891 Personal history of nicotine dependence
CPT/HCPCS: 71046; 99212; G0463

== ENCOUNTER 2019-02-28 09:26 | Emergency (ER) | payer MEDICARE, MEDICAID ==
--- OUTSIDE RECORDS SUMMARY | 2019-02-28 10:03 | XMS REPORT | Continuity of Care Document ---
:1930 External Reference #:[id number] Author Name Kaylen Bhakta M.D. Address [address] [place] [address] Care Team Providers Name Role Phone Kaylen Bhakta M.D. - Infectious Care Team Information Medical Device Sales Representative [phone] Disease Swathi Lemus NP - Nurse Care Team Information Medical Device Sales Representative [phone] Practitioner Love Rizvi PA - Physician Care Team Information Medical Device Sales Representative Hat Ironer Problems Active Problems Provider Date Chronic obstructive lung disease Ny Olmstead MD Onset: 06/05/2004 Solitary nodule of lung Kaylen Bhakta M.D. 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 Onset: 10/16/2016 Essential hypertension Ny Olmstead MD Onset: 03/29/2015 Heterozygous thalassemia Kaylen Bhakta M.D. Onset: 12/23/2016 Iron deficiency anemia Mike Frey DO Onset: 03/21/2017 Iron deficiency Mike Frey DO Onset: 06/23/2017 Gastroesophageal reflux disease Ny Olmstead MD Onset: 02/07/2014 Irritable bowel syndrome Ny Olmstead MD Onset: 06/05/2013 Diaphragmatic hernia Ny Olmstead MD Onset: 07/29/2011 Bunion Ny Olmstead MD Onset: 09/27/2013 Vitamin D deficiency Ny Olmstead MD Onset: 09/27/2013 Hyperlipidemia Ny Olmstead MD Onset: 06/05/2013 Low back pain Kaylen Bhakta M.D. Onset: 06/11/2017 Compression fracture of lumbar spine Margaret Babb, PNP-BC, COPIER TECHNICIAN, Onset: 01/02 Ibclc Note: L1 25% Renal failure syndrome Ny Olmstead MD Onset: 08/25/2008 Hearing loss Ny Olmstead MD Onset: 03/29/2005 Osteoporosis Ny Olmstead MD Onset: 03/29/2005 Giant cell arteritis Ny Olmstead MD Onset: 03/20/2004 Polymyalgia rheumatica Ny Olmstead MD Onset: 03/20/2004 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 of Julee Jacksonleida, MSN, Onset: 02/24 distal lower extremity COPIER TECHNICIAN Cerebral meningioma Ny Olmstead MD Onset: 11/24/2014 Note: right, vertex, <1 cm, seen 2010 as well Atypical depressive disorder Ny Olmstead MD Onset: 10/26/2015 Non-toxic multinodular goiter Ny Olmstead MD Onset: 11/16/2015 Edema Ny Olmstead MD Onset: 11/11/2016 Diverticular disease of colon Ny Olmstead MD Onset: 11/11/2016 Aneurysm of thoracic aorta Kaylen Bhakta M.D. Onset: 05/14/2017 Long-term current use of antibiotic Kaylen Bhakta M.D. Onset: 11/03/2017 Muscle pain Kaylen Bhakta M.D. Onset: 11/03/2017 Lesion of lung Kaylen Bhakta M.D. Onset: 12/31/2017 Benign neoplasm of skin of face Johnathan Sheppard M.D. Onset: 2017 Anemia due to chemotherapy Mike Frey DO Onset: 04/21/2018 Raynaud's disease Swathi Lemus FNP Onset: 10/15/2018 Adjustment disorder with depressed Swathi Lemus FNP Onset: 2018 mood Anemia [place] DO Onset: 11/09/2018 Chest pain Kaylen Bhakta M.D. Onset: 01/20/2019 Sore throat symptom Kaylen Bhakta M.D. Onset: 01/20/2019 Social History Type Date Description Comments Sex Unknown Tobacco Use Start: Unknown End: Former Cigarette Smoker Unknown Cigarette Use Pack Years - 25 ETOH Use Occasionally consumes 2 dr/mo alcohol Tobacco Use Start: Unknown End: Patient is a former smoker 1 PPD X 10 YRS, QUIT Unknown IN 40'S Smoking Status Reviewed: 02/22/19 Patient is a former smoker 1 PPD X 10 YRS , QUIT IN 40'S Allergies, Adverse Reactions, Alerts Active Allergies Reaction Severity Comments Date Sulfa Drugs 07/09/2011 Budesonide 01/13/2013 Acular 12/16/2007 Penicillins 07/09/2011 Morphine 07/09/2011 Aspirin PUD 07/29/2011 Citalopram 06/06/2016 Hydroxyzine 07/16/2018 Medications Active Medications SIG Qnty Indications Ordering Date Provider Nitroglycerin Apply One Patch To 90units [facility], 02/15/2019 0.4mg/HR Skin From 9 In The Jaronjoanna Smiley M.D., Patches 24HR Evening To 9 In [facility] The Morning Norvasc 1 by mouth every 90tabs I73.00 [place], 10/15/2018 5mg Tablets day * for Swathi Raynaud's syndrome COPIER TECHNICIAN Sertraline HCL 1 tablet once 30tabs F43.21 [place], 10/15/2018 25mg daily Jenporfirioferchayo, Tablets COPIER TECHNICIAN Spiriva Handihaler Inhale The caps Ny Olmstead, 02/23/2017 Contents Of One 18mcg Capsules Capsule Via Handihaler Once Daily Maximum Daily Dose = 1 Simvastatin Take One Tablet By 90tabs Ny Olmstead, 04/04/2016 5mg Tablets Mouth AT Bedtime Medical Alert Device dx: polymyalgia Ny Olmstead, 02/23/2015 rheumatica; copd; MD at risk for falls Albuterol Sulfate 1 vial in 75ml Ny Olmstead, nebulizer every 4 MD (2.5mg/3ML) 0.083% hrs as needed for Nebulizer wheezing, sob or persistent cough Nexium 1 by mouth every 90caps Ny Olmstead, 40mg Capsules DR day Ibandronate Sodium Take 1 Tablet By Unknown Mouth Every Month 150mg Tablets On The Same Day. Take With Full Gla Miralax 255gm with 64 oz Unknown Powder of what ever she wants to drink and drink it all Sodium 1 every month same Unknown Capsules time Propranolol HCL Take One Tablet By 90tabs Ny Ol[place]stead, 40mg Mouth Every Day Tablets History Medications [facility] Omeprazole 1 tab po qd 30tabs Jaron Bates 12/25/2018 - 20mg Akila Smiley, FACC Unknown Tablets DR Barry ([place]) one spray 3.700ml S32.000A [place], 09/22/2018 - nasaly once a CELIA Echevarria 02/22/2019 200Unit/Act day Solution Norvasc one by mouth 30tabs I73.00 [place], 09/22/2018 - 2.5mg every day CELIA Echevarria 10/15/2018 Tablets Immunizations CPT Code Status Date Vaccine Lot # [id number] Given 07/18/2018 Shingrix Zoster Vaccine (HZV), Recombinant, Subunit, Adjuvante 53451 Given 02/26/2018 Influenza High Dose [id number] 39980 Given 02/05/2017 Influenza High Dose [id number] Q2038 Given 03/22/2016 Influenza Vaccine (Fluzone) Age 3 And Older 21579 Given 03/29/2015 Pneumococcal Conjugate Vaccine 13 Valent For [id number] Intramuscular Use Q2038 Given 02/22/2015 Influenza Vaccine (Fluzone) Age 3 And Older [id number] 13133 Given 09/18/2012 Tdap injection 41470 Given 07/29/2011 Zoster Vaccine Live Injection 49013 Given 04/13/2010 Pneumovax Injection 75374 Given 04/16/2004 Pneumovax Injection U-Td Given 10/31/1999 Td(Adult),Unspecified 38807 Given 11/03/1997 Pneumovax Injection Vital Signs Date Vital Result Comment 02/22/2019 2:24pm BP Systolic Sitting Left Arm 129 mmHg BP Diastolic Sitting Left Arm 65 mmHg Heart Rate 77 /min Height 59.5 inches 4'11.50" Weight 132.00 lb BMI (Body Mass Index) 26.2 kg/m2 BSA (Body Surface Area) 1.55 m2 [place] body weight in kilograms 45 kg 02/22/2019 11:18am BP Systolic 130 mmHg BP Diastolic 68 mmHg Body Temperature 97.8 F Heart Rate 71 /min Respiratory Rate 16 /min Height 59.5 inches 4'11.50" Weight 131.00 lb BMI (Body Mass Index) 26.0 kg/m2 BSA (Body Surface Area) 1.55 m2 [place] body weight in kilograms 45 kg O2 % BldC Oximetry 97 % Results Test Date Facility Test Result H/L Range Note Comprehensive 01/20/2019 [facility] Glucose 97 mg/dL Normal 74-106 1 Metabolic Panel [address] [place] [address] [phone] BUN 25 mg/dL High 7-18 Creatinine 1.1 mg/dL Normal 0.6-1.3 Glom Filtration Rate, Estimate 50 mL/min >60 If 60 mL/min >60 2 BUN/Creat 22.7 ratio Sodium 139 mmol/L Normal 136-145 Potassium 4.2 mmol/L Normal 3.5-5.1 Chloride 106 mmol/L Normal 98-107 Carbon Dioxide 32 mmol/L Normal 21-32 Anion Gap 1 mEq/L Low 8-16 Calcium 8.8 mg/dL Normal 8.5-10.1 Total Protein 7.0 g/dL Normal 6.4-8.2 Albumin 3.5 g/dL Normal 3.4-5.0 Globulin 3.5 g/dL Normal 1.9-4.3 Alb/Glob 1.0 ratio Bilirubin,Total 0.4 mg/dL Normal 0.2-1.0 Sgot/Ast 17 U/L Normal 15-37 SGPT/Alt 10 U/L Low 12-78 3 Alkaline Phosphatase 91 U/L Normal 45-117 Laboratory test 01/20/2019 [facility] Troponin-I < 0.015 [address] ng/[place] [address] [phone] CBC W/Automated 01/20/2019 [facility] White Blood 5.4 K/uL Normal 3.1-[address] Count 0.7 [place] [address] [phone] Red Blood Count 4.46 M/uL Normal 3.90-5.40 Hemoglobin 9.4 gm/dL Low 11.6-15.8 Hematocrit 30.7 % Low 36.0-46.1 Mean Cell Volume 68.8 fl Low 80.9-99.0 Mean Corpuscular HGB 21.1 pg Low 25.9-32.7 Mean Corpuscular HGB Conc 30.6 g/dL Low 30.8-34.3 Platelet Count 166 K/uL Normal 155-360 Red Cell Distri Width SD 39.3 fl Normal 36-47 Red Cell Distri Width %CV 16.0 % High 11.7-14.4 Mean Platelet Volume 10.8 fl Normal 8.9-12.4 Neut% 66.2 % Normal 40.4-72.8 Lymph % 24.7 % Normal 20.0-42.0 [place] % 6.3 % Normal 4.3-13.2 Eo% 2.4 % Normal 0.0-6.6 Bas% 0.2 % Normal 0.0-1.1 Immature Grans 0.2 % Normal 0.0-5.0 NRBC % 0.0 /100WBC < 10/ 100 WBC Neut# 3.57 K/uL Normal 1.8-7.0 Lymph # 1.33 K/uL Normal 1.0-4.0 [place] # 0.34 K/uL Normal 0.3-0.9 Eos # 0.13 K/uL Normal 0.0-0.5 Baso # 0.01 K/uL Normal 0.0-0.1 Immature Grans Absolute 0.01 K/uL NRBC # 0.00 K/uL Laboratory test finding 01/20/2019 [facility] Slide Review <pending> [address] [place] [address] [phone] Path Review: <pending> CBC W/Automated 12/25/2018 [facility] White Blood 7.0 K/uL Normal 3.1-10.[address] [place] [address] [phone] Red Blood Count 4.76 M/uL Normal 3.90-5.40 Hemoglobin 10.2 gm/dL Low 11.6-15.8 Hematocrit 32.7 % Low 36.0-46.1 Mean Cell Volume 68.7 fl Low 80.9-99.0 Mean Corpuscular HGB 21.4 pg Low 25.9-32.7 Mean Corpuscular HGB Conc 31.2 g/dL Normal 30.8-34.3 Platelet Count 223 K/uL Normal 155-360 Red Cell Distri Width SD 39.8 fl Normal 36-47 Red Cell Distri Width %CV 16.3 % High 11.7-14.4 Mean Platelet Volume 10.7 fl Normal 8.9-12.4 Neut% 68.3 % Normal 40.4-72.8 Lymph % 22.1 % Normal 20.0-42.0 [place] % 6.7 % Normal 4.3-13.2 Eo% 2.2 % Normal 0.0-6.6 Bas% 0.3 % Normal 0.0-1.1 Immature Grans 0.4 % Normal 0.0-5.0 NRBC % 0.0 /100WBC < 10/ 100 WBC Neut# 4.76 K/uL Normal 1.8-7.0 Lymph # 1.54 K/uL Normal 1.0-4.0 [place] # 0.47 K/uL Normal 0.3-0.9 Eos # 0.15 K/uL Normal 0.0-0.5 Baso # 0.02 K/uL Normal 0.0-0.1 Immature Grans Absolute 0.03 K/uL NRBC # 0.00 K/uL Slide Review 12/25/2018 [facility] Slide Review (SEE NOTE) 5 [address] [place] [address] [phone] Laboratory test 11/09/2018 [facility] LDH 172 U/L Normal 84-24 6 finding [address] [place] [address] [phone] Comprehensive 11/09/2018 [facility] Glucose 88 mg/dL Normal 74-10 Metabolic Panel [address] [id number] [phone] BUN 18 mg/dL Normal 7-18 Creatinine 0.9 mg/dL Normal 0.6-1.3 Glom Filtration Rate, Estimate >60 mL/min >60 If >60 mL/min >60 7 BUN/Creat 20.0 ratio Sodium 138 mmol/L Normal 136-145 Potassium 4.2 mmol/L Normal 3.5-5.1 Chloride 104 mmol/L Normal 98-107 Carbon Dioxide 30 mmol/L Normal 21-32 Anion Gap 4 mEq/L Low 8-16 Calcium 9.0 mg/dL Normal 8.5-10.1 Total Protein 7.3 g/dL Normal 6.4-8.2 Albumin 3.5 g/dL Normal 3.4-5.0 Globulin 3.8 g/dL Normal 1.9-4.3 Alb/Glob 0.9 ratio Bilirubin,Total 0.3 mg/dL Normal 0.2-1.0 Sgot/Ast 19 U/L Normal 15-37 SGPT/Alt 10 U/L Low 12-78 8 Alkaline Phosphatase 98 U/L Normal 45-117 CBC W/Automated 11/09/2018 [facility] White Blood 5.7 K/uL Normal 3.1-10.[address] [place] [address] [phone] Red Blood Count 4.61 M/uL Normal 3.90-5.40 Hemoglobin 10.0 gm/dL Low 11.6-15.8 Hematocrit 32.7 % Low 36.0-46.1 Mean Cell Volume 70.9 fl Low 80.9-99.0 Mean Corpuscular HGB 21.7 pg Low 25.9-32.7 Mean Corpuscular HGB Conc 30.6 g/dL Low 30.8-34.3 Platelet Count 231 K/uL Normal 155-360 Red Cell Distri Width SD 38.8 fl Normal 36-47 Red Cell Distri Width %CV 15.5 % High 11.7-14.4 Mean Platelet Volume 11.0 fl Normal 8.9-12.4 Neut% 64.9 % Normal 40.4-72.8 Lymph % 26.1 % Normal 20.0-42.0 [place] % 5.6 % Normal 4.3-13.2 Eo% 2.8 % Normal 0.0-6.6 Bas% 0.3 % Normal 0.0-1.1 Immature Grans 0.3 % Normal 0.0-5.0 NRBC % 0.0 /100WBC < 10/ 100 WBC Neut# 3.72 K/uL Normal 1.8-7.0 Lymph # 1.50 K/uL Normal 1.0-4.0 [place] # 0.32 K/uL Normal 0.3-0.9 Eos # 0.16 K/uL Normal 0.0-0.5 Baso # 0.02 K/uL Normal 0.0-0.1 Immature Grans Absolute 0.02 K/uL NRBC # 0.00 K/uL Reticulocyte 11/09/2018 [facility] Retic 23.5 pg Low 27.9-37.0 Count,Automated [address] [facility] Hemoglobin [place], [place] [address] [phone] Retic % 0.8 % Normal 0.5-1.8 Immature Retic Fraction 10.8 % Normal 2.9-15.5 Hemoglobinopathy Profile 11/09/2018 [facility] Hgb A 94.6 % Low 96.4-98.8 [address] [place], [place] [address] [phone] Hgb, 0.8 % 0.0-2.0 Hgb S 0.0 % 0.0 Hgb C 0.0 % 0.0 Hgb A2 4.6 % High 1.8-3.2 Hgb Variant 0 % 0.0 Interpretation: (SEE NOTE) 9 Iron-Tibc-%Sat 11/09/2018 [facility] Serum Iron 51 g/dL Normal 50-170 [address] [place] [address] [phone] Total Iron Binding Capacity 357 g/dL Normal 250-450 Transferrin %Saturation 14 % Normal 12-57 Laboratory test 11/09/2018 [facility] Ferritin 37 ng/mL Normal 8-252 finding [address] [place] [address] [phone] Laboratory test 11/09/2018 [facility] Vitamin 36.1 30.0-100. 10 finding [address] [facility] D,25-Hydroxy ng/mL 0 [place] [address] [phone] Vitamin B12 And 11/09/2018 [facility] Vitamin B12 506 pg/mL Normal 193-986 Folate [address] [place], [place] [address] [phone] Folic Acid 14.8 ng/mL Normal 3.1-17.5 Urine Dipstick 10/15/2018 [facility] Ua Color Yellow Yellow Ua Clarity Cloudy Clear Ua Leuko neg Negative Ua Nitrite neg Negative Ua Urobilinogen 3.5 High 0.2 - 1.0 E.U./dL Ua Protein trace Negative Ua PH 7.0 6.5-7.5 Ua Blood neg Negative Ua Specific [place] 1.015 1.010-1.030 Ua Ketones neg Negative Ua Bilirubin neg Negative Ua Glucose neg Negative CBC W/Automated 10/05/2018 [facility] White 7.6 K/uL Normal 3.1-10.7 11 Diff [address] [facility] [place] [address] Count [phone] Red Blood Count 3.83 M/uL Low 3.90-5.40 Hemoglobin 8.3 gm/dL Low 11.6-15.8 Hematocrit 28.2 % Low 36.0-46.1 Mean Cell Volume 73.6 fl Low 80.9-99.0 Mean Corpuscular HGB 21.7 pg Low 25.9-32.7 Mean Corpuscular HGB Conc 29.4 g/dL Low 30.8-34.3 Platelet Count 242 K/uL Normal 155-360 Red Cell Distri Width SD 43.3 fl Normal 36-47 Red Cell Distri Width %CV 16.7 % High 11.7-14.4 Mean Platelet Volume 11.3 fl Normal 8.9-12.4 Neut% 73.0 % High 40.4-72.8 Lymph % 17.4 % Low 20.0-42.0 [place] % 6.4 % Normal 4.3-13.2 Eo% 2.5 % Normal 0.0-6.6 Bas% 0.3 % Normal 0.0-1.1 Immature Grans 0.4 % Normal 0.0-5.0 NRBC % 0.0 /100WBC < 10/ 100 WBC Neut# 5.57 K/uL Normal 1.8-7.0 Lymph # 1.33 K/uL Normal 1.0-4.0 [place] # 0.49 K/uL Normal 0.3-0.9 Eos # 0.19 K/uL Normal 0.0-0.5 Baso # 0.02 K/uL Normal 0.0-0.1 Immature Grans Absolute 0.03 K/uL NRBC # 0.00 K/uL Vitamin B12 And 10/05/2018 [facility] Vitamin B12 442 pg/mL Normal 193-986 Folate [address] [place] [address] [phone] Folic Acid 13.1 ng/mL Normal 3.1-17.5 Comprehensive 10/05/2018 [facility] Glucose 79 mg/dL Normal 74-106 Metabolic Panel [address] [place], [place] [address] [phone] BUN 17 mg/dL Normal 7-18 Creatinine 0.8 mg/dL Normal 0.6-1.3 Glom Filtration Rate, Estimate >60 mL/min >60 If >60 mL/min >60 12 BUN/Creat 21.2 ratio Sodium 139 mmol/L Normal 136-145 Potassium 4.3 mmol/L Normal 3.5-5.1 Chloride 106 mmol/L Normal 98-107 Carbon Dioxide 29 mmol/L Normal 21-32 Anion Gap 4 mEq/L Low 8-16 Calcium 8.8 mg/dL Normal 8.5-10.1 Total Protein 6.7 g/dL Normal 6.4-8.2 Albumin 3.3 g/dL Low 3.4-5.0 Globulin 3.4 g/dL Normal 1.9-4.3 Alb/Glob 1.0 ratio Bilirubin,Total 0.4 mg/dL Normal 0.2-1.0 Sgot/Ast 15 U/L Normal 15-37 SGPT/Alt 9 U/L Low 12-78 13 Alkaline Phosphatase 112 U/L Normal 45-117 Iron-Tibc-%Sat 10/05/2018 [facility] Serum Iron 45 g/dL Low 50-170 [address] [place] [address] [phone] Total Iron Binding Capacity 325 g/dL Normal 250-450 Transferrin %Saturation 14 % Normal 12-57 Laboratory 10/05/2018 [facility] Ferritin 185 ng/mL Normal 8-252 test finding [address] [place] [address] [phone] Occult 09/23/2018 [facility] Fecal Occult Negative (Negativ 14, Blood,Triple [address] [facility] Blood #1 e) 15 [place] [address] [phone] Fecal Occult Blood #2 Negative (Negative) 16 Fecal Occult Blood #3 Negative (Negative) 17 CBC W/Automated 09/11/2018 [facility] White 7.1 K/uL Normal 3.1-10.7 18 Diff [address] [facility] [place] [address] Count [phone] Red Blood Count 3.64 M/uL Low 3.90-5.40 Hemoglobin 8.2 gm/dL Low 11.6-15.8 Hematocrit 26.7 % Low 36.0-46.1 Mean Cell Volume 73.4 fl Low 80.9-99.0 Mean Corpuscular HGB 22.5 pg Low 25.9-32.7 Mean Corpuscular HGB Conc 30.7 g/dL Low 30.8-34.3 Platelet Count 275 K/uL Normal 155-360 Red Cell Distri Width SD 41.1 fl Normal 36-47 Red Cell Distri Width %CV 15.6 % High 11.7-14.4 Mean Platelet Volume 11.9 fl Normal 8.9-12.4 Neut% 68.4 % Normal 40.4-72.8 Lymph % 20.8 % Normal 20.0-42.0 [place] % 7.5 % Normal 4.3-13.2 Eo% 2.7 % Normal 0.0-6.6 Bas% 0.3 % Normal 0.0-1.1 Immature Grans 0.3 % Normal 0.0-5.0 NRBC % 0.0 /100WBC < 10/ 100 WBC Neut# 4.84 K/uL Normal 1.8-7.0 Lymph # 1.47 K/uL Normal 1.0-4.0 [place] # 0.53 K/uL Normal 0.3-0.9 Eos # 0.19 K/uL Normal 0.0-0.5 Baso # 0.02 K/uL Normal 0.0-0.1 Immature Grans Absolute 0.02 K/uL NRBC # 0.00 K/uL Laboratory test 09/11/2018 [facility] Ferritin 21 ng/mL Normal 8-252 finding [address] [place] [address] [phone] Iron-Tibc-%Sat 09/11/2018 [facility] Serum Iron 30 g/dL Low 50-170 [address] [place] [address] [phone] Total Iron Binding Capacity 315 g/dL Normal 250-450 Transferrin %Saturation 10 % Low 12-57 Comprehensive 09/11/2018 [facility] Glucose 76 mg/dL Normal 74-106 Metabolic Panel [address] [place] [address] [phone] BUN 25 mg/dL High 7-18 Creatinine 0.9 mg/dL Normal 0.6-1.3 Glom Filtration Rate, Estimate >60 mL/min >60 If >60 mL/min >60 19 BUN/Creat 27.7 ratio Sodium 141 mmol/L Normal 136-145 Potassium 4.1 mmol/L Normal 3.5-5.1 Chloride 110 mmol/L High 98-107 Carbon Dioxide 29 mmol/L Normal 21-32 Anion Gap 2 mEq/L Low 8-16 Calcium 8.2 mg/dL Low 8.5-10.1 Total Protein 6.4 g/dL Normal 6.4-8.2 Albumin 2.9 g/dL Low 3.4-5.0 Globulin 3.5 g/dL Normal 1.9-4.3 Alb/Glob 0.8 ratio Bilirubin,Total 0.3 mg/dL Normal 0.2-1.0 Sgot/Ast 14 U/L Low 15-37 20 SGPT/Alt 12 U/L Normal 12-78 Alkaline Phosphatase 99 U/L Normal 45-117 Vitamin B12 And 09/11/2018 [facility] Vitamin B12 468 pg/mL Normal 193-986 Folate [address] [place] [address] [phone] Folic Acid > 20.0 ng/mL High 3.1-17.5 Laboratory test 09/11/2018 [facility] Vitamin 39.8 30.0-100.0 21 finding [address] D,25-Hydroxy ng/[place] [address] [phone] DOCKERY SENT TO ER, CP 2 Note: Persistent reduction for 3 months or more in an eGFR <60 mL/min/1.73 m2 defines CKD. Patients with eGFR values >/=60 mL/min/1.73 m2 may also have CKD if evidence of persistent proteinuria is present. The original MDRD equation for estimated GFR is not valid for patients less than 18 years of age. Additional information may be found at www.kdoqi.org. 3 Values below the stated reference ranges of AST and ALT can be seen in normal populations. Clinical correlation is suggested. 4 0.0 - 0.045 ng/mL: Normal 0.046 - 0.5 ng/mL: Suggestive 0.6 - 1.5 ng/mL: Consistent 5 Instrument flagged sample for slide review. Less than 10% Bands seen, no other immature WBC's seen. RBC morphology essentially normal. Platelet estimate = NORMAL 6 D50.9 7 Note: Persistent reduction for 3 months or more in an eGFR <60 mL/min/1.73 m2 defines CKD. Patients with eGFR values >/=60 mL/min/1.73 m2 may also have CKD if evidence of persistent proteinuria is present. The original MDRD equation for estimated GFR is not valid for patients less than 18 years of age. Additional information may be found at www.kdoqi.org. 8 Values below the stated reference ranges of AST and ALT can be seen in normal populations. Clinical correlation is suggested. 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 Suggest hematologic and clinical correlation. Performed at: - [facility] [address] [id number] [employer] Adf Developer: Doris Johnston MD, Phone: [phone] 10 Vitamin D deficiency has been defined by the [place] [employer] and an Endocrine Society practice guideline as a level of serum 25-OH vitamin D less than 20 ng/mL (1,2). The Endocrine Society went on to further define vitamin D insufficiency as a level between 21 and 29 ng/mL (2). 1. IOM ([place] [employer]). 2010. Dietary reference intakes for calcium and D. [place]: The National Academies Press. 2. Josef MF, Bora [place], Danya TAVARES, et al. Evaluation, treatment, and prevention of vitamin D deficiency: an Endocrine Society clinical practice guideline. JCEM. 2010; 96(7):1911-30. Performed at: - [facility] [address] [id number] [employer] Adf Developer: Doris Johnston MD, Phone: [phone] 11 E61.1 D50.9 12 Note: Persistent reduction for 3 months or more in an eGFR <60 mL/min/1.73 m2 defines CKD. Patients with eGFR values >/=60 mL/min/1.73 m2 may also have CKD if evidence of persistent proteinuria is present. The original MDRD equation for estimated GFR is not valid for patients less than 18 years of age. Additional information may be found at www.kdoqi.org. 13 Values below the stated reference ranges of AST and ALT can be seen in normal populations. Clinical correlation is suggested. 14 D64.9 E61.1 15 SPECIMEN COLLECTED ON 09/21/18 AT 0700 16 SPECIMEN COLLECTED ON 09/22/18 AT 0930 17 SPECIMEN COLLECTED ON 09/23/18 AT 1030 18 E61.1 D50.9 19 Note: Persistent reduction for 3 months or more in an eGFR <60 mL/min/1.73 m2 defines CKD. Patients with eGFR values >/=60 mL/min/1.73 m2 may also have CKD if evidence of persistent proteinuria is present. The original MDRD equation for estimated GFR is not valid for patients less than 18 years of age. Additional information may be found at www.kdoqi.org. 20 Values below the stated reference ranges of AST and ALT can be seen in normal populations. Clinical correlation is suggested. 21 Vitamin D deficiency has been defined by the [place] [employer] and an Endocrine Society practice guideline as a level of serum 25-OH vitamin D less than 20 ng/mL (1,2). The Endocrine Society went on to further define vitamin D insufficiency as a level between 21 and 29 ng/mL (2). 1. IOM ([place] [employer]). 2010. Dietary reference intakes for calcium and D. [place]: The National Academies Press. 2. Josef MF, [place], Danya TAVARES, et al. Evaluation, treatment, and prevention of vitamin D deficiency: an Endocrine Society clinical practice guideline. JCEM. 2010; 96(7):1911-30. Performed at: RN - [facility] [address] [id number] [employer] Adf Developer: Doris Johnston MD, Phone: [phone] Procedures Date Code Description Status 02/02/2019 06677 EKG-Tracing And Report Completed 12/30/2018 47620 Spirometry Completed 12/25/2018 22485 EKG-Tracing And Report Completed 02/27/2018 [id number] Mammogram Completed 12/13/2015 [id number] Mammogram Completed 06/02/2015 [id number] Bone Mineral Density Test Completed 11/24/2014 [id number] Mammogram Completed 06/02/2011 [id number] Colonoscopy Completed Medical Devices Description No Information Available Encounters Type Date Location Provider Dx Diagnosis Office Visit 02/22/2019 Physical Medicine Kaylen Bhakta, R91.8 Other nonspecific 2:15p & Infectious M.D. abnormal finding of Disease lung field 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 R60.0 Localized edema Office Visit 02/02/2019 10:40a Cardiology Jaron Bates R07.9 Chest pain, Office MAkila Kasper, FACC unspecified I71.2 Thoracic aortic aneurysm, without rupture I10 Essential (primary) hypertension Office 01/27/2019 Family Lemus, K21.9 Gastro-esophageal Visit 1:00p Medicine [place] Swathi, COPIER TECHNICIAN reflux disease RD without esophagitis I73.00 Raynaud's syndrome without gangrene Z12.31 Encntr screen mammogram for malignant neoplasm of breast F43.21 Adjustment disorder with depressed mood Office Visit 01/20/2019 2:30p Physical Medicine & Kaylen Bhakta, R07.89 Other chest Infectious Disease M.D. 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, bronchus and lung J44.9 Chronic obstructive pulmonary disease, unspecified R07.89 Other chest pain Office Visit 11/09/2018 4:00p Oncology Office Ena, D64.9 Anemia, La, DO unspecified 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 K21.9 Gastro-esophageal reflux disease without esophagitis 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 Office Visit 10/27/2018 Family Lemus, I73.00 Raynaud's 1:45p Medicine [place] Swathi, COPIER TECHNICIAN syndrome RD without gangrene F43.21 Adjustment disorder with depressed mood Office Visit 10/15/2018 Family Lemus, I73.00 Raynaud's 1:00p Medicine [place] Jenezequiel, COPIER TECHNICIAN syndrome RD without gangrene F43.21 Adjustment disorder with depressed mood Office Visit 10/06/2018 1:00p Infusion Center [place], D50.9 Iron deficiency Lashaun Chung NP anemia, unspecified 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 02/22/2019 K21.9 Gastro-esophageal reflux disease NagaAline rickettsCELIA arnold without esophagitis 02/22/2019 R60.0 Localized edema Kaylen Bhakta M.D. 02/22/2019 R60.0 Localized edema NagaAline rickettsDEBRA arnoldP 02/22/2019 I10 Essential (primary) hypertension NagaLaura rickettsbeltrantonoCELIA 02/02/2019 R07.9 Chest pain, unspecified Jaron Bates M.D., [facility] 02/02/2019 I71.2 Thoracic aortic aneurysm, without Jaron Bates M.D. , rupture [facility] 02/02/2019 I10 Essential (primary) hypertension Jaron Bates M.D., [facility] 01/27/2019 K21.9 Gastro-esophageal reflux disease NagaLaura rickettsCELIA domingo without esophagitis 01/27/2019 I73.00 Raynaud's syndrome without gangrene Laura LemusCELIA domingo 01/27/2019 Z12.31 Encounter for screening mammogram AllanKeyanaCELIA nieves for malignant neoplasm of breast 01/27/2019 F43.21 Adjustment disorder with depressed Allan CELIA Echevarria mood 01/20/2019 R07.89 Other chest pain Kaylen Bhakta M.D. 01/20/2019 R07.0 Pain in throat Kaylen Bhakta M.D. 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 01/20/2019 R91.8 Other nonspecific abnormal finding Kaylen Bhakta M.D. 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 [place], DO 11/09/2018 K21.9 Gastro-esophageal reflux disease [place], DO without esophagitis 11/09/2018 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 [place], DO 10/27/2018 I73.00 Raynaud's syndrome without gangrene Swathi Lemus, [employer]IER TECHNICIAN 10/27/2018 F43.21 Adjustment disorder with depressed Swathi Lemus, [employer]IER TECHNICIAN mood 10/15/2018 I73.00 Raynaud's syndrome without gangrene Swathi Lemus, COPIER TECHNICIAN 10/15/2018 F43.21 Adjustment disorder with depressed Swathi Lemus, [employer]IER TECHNICIAN mood 10/06/2018 D50.9 Iron deficiency anemia, unspecified Lashaun Rios, [employer] 10/06/2018 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 Lashaun Rios, [employer] 10/05/2018 E61.1 Iron deficiency [place], DO 10/05/2018 E61.1 Iron deficiency Oncology Nurse 10/05/2018 D50.9 Iron deficiency anemia, unspecified [place], DO 10/05/2018 D50.9 Iron deficiency anemia, unspecified Oncology Nurse 09/22/2018 E61.1 Iron deficiency Swathi Lemus FNP 09/22/2018 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 Swathi Lemus FNP 09/22/2018 S32.000A Wedge compression fracture of Swathi Lemus [facility] unspecified lumbar vertebra, i 09/22/2018 I73.00 Raynaud's syndrome without gangrene Swathi Lemus FNP 09/21/2018 E61.1 Iron deficiency Lashaun Rios, [employer] 09/21/2018 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 at Physical Medicine & Infectious [facility]2908/06/2019 1:20 pm - Jaron Bates M.D. , FACC at Cardiology [place]0304/26/2019 1:15 pm - Swathi Lemus FNP at [facility]03/24/2019 1:20 pm - Love Rizvi PA at Pulmonology Functional Status Functional Condition Comment Date Status Independent with all ADL's Active Glasses Active Complete lower and upper and lower dentures Active Mental Status Description No Information Available Referrals Refer to Reason for Referral Status Appt Date Love Rizvi PA Created [address] [place] [address] [phone] Jason Briones MD Patient Notified 02/16/2019 [address] [place] [address] [phone] Jaron Bates MD FAC Closed 02/02/[address] [place] [address] [phone] Jason Briones MD 88 YOF with know GERD has had marked worsening - Sent please evalaute and treat [address] [place] [address] [phone] Kaylen Bhakta M.D. RUL opacity , new from 3 months ago. History Scheduled of MAC [address] [place] [address] [phone]
--- OUTSIDE RECORDS SUMMARY | 2019-02-28 10:04 | XMS REPORT | Continuity of Care Document ---
:1930 External Reference #:[id number] Author Name Swathi Lemus, [facility] Address [address] [place] [id number] Care Team Providers Name Role Phone Kaylen Bhakta M.D. - Infectious Care Team Information Visiting Teacher [phone] Disease Swathi Lemus INGREDIENT HANDLER - Nurse Care Team Information Visiting Teacher [phone] Practitioner Love Rizvi PA - Physician Care Team Information Visiting Teacher [phone] Fuel Pilot Engineer Problems Active Problems Provider Date Chronic obstructive [...] fracture of lumbar spine Margaret Babb, PNP-BC, CONSULTING MARINE ENGINEER, Onset: 01/02 Ibclc Note: L1 25% Renal failure syndrome Ny Olmstead MD Onset: 08/25/2008 Hearing loss Ny Olmstead MD Onset: 03/29/2005 Osteoporosis Ny Olmstead MD Onset: 03/29/2005 Giant cell arteritis Ny Olmstead MD Onset: 03/20/2004 Polymyalgia rheumatica Ny Olmstead MD Onset: 03/20/2004 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 of Julee Jacksonleida, MSN, Onset: 02/24 distal lower extremity CONSULTING MARINE ENGINEER Cerebral meningioma Ny Olmstead MD Onset: 11/24/2014 [...] Provider Nitroglycerin Apply One Patch To 90units [facility], 02/15/2019 0.4mg/HR Skin From 9 In The Jaronjoanna Smiley M.D., Patches 24HR Evening To 9 In [facility] The Morning Norvasc 1 by mouth every 90tabs I73.00 [place]win, 10/15/2018 5mg Tablets day * for Swathi Raynaud's syndrome CONSULTING MARINE ENGINEER Sertraline HCL 1 tablet once 30tabs F43.21 [place]win, 10/15/2018 25mg daily Jenporfirioferchayo, Tablets CONSULTING MARINE ENGINEER Spiriva Handihaler Inhale The caps Ny Olmstead, [...] Akila Smiley, FACC Unknown Tablets DR Barry (Kell) one spray 3.700ml S32.000A Allan, 09/22/2018 - nasaly once a CELIA Echevarria 02/22/2019 200Unit/Act day Solution Norvasc one by mouth 30tabs I73.00 Clune, 09/22/2018 - 2.5mg every day CELIA Echevarria 10/15/2018 Tablets Immunizations CPT Code Status Date Vaccine Lot # [id number] Given 07/18/2018 Shingrix Zoster Vaccine (HZV), Recombinant, Subunit, Adjuvante 70125 Given 02/26/2018 Influenza High Dose [id number] 78722 Given 02/05/2017 Influenza High Dose [id number] Q2038 Given 03/22/2016 Influenza Vaccine (Fluzone) Age 3 And Older 53342 Given 03/29/2015 Pneumococcal Conjugate Vaccine 13 Valent For [id number] Intramuscular Use Q2038 Given 02/22/2015 Influenza Vaccine (Fluzone) Age 3 And Older [id number] 15465 Given 09/18/2012 Tdap injection 59943 Given 07/29/2011 Zoster Vaccine Live Injection 21553 Given 04/13/2010 Pneumovax Injection 85807 Given 04/16/2004 Pneumovax Injection U-Td Given 10/31/1999 Td(Adult),Unspecified 59923 Given 11/03/1997 Pneumovax Injection Vital Signs Date Vital Result Comment 02/22/2019 11:18am BP Systolic 130 mmHg BP Diastolic 68 mmHg Body Temperature 97.8 F Heart Rate 71 /min Respiratory Rate 16 /min Height 59.5 inches 4'11.50" Weight 131.00 lb BMI (Body Mass Index) 26.0 kg/m2 BSA (Body Surface Area) 1.55 m2 [place] body weight in kilograms 45 kg O2 % BldC Oximetry 97 % 02/02/2019 10:45am BP Systolic Sitting Right Arm 139 mmHg BP Diastolic Sitting Right Arm 61 mmHg Heart Rate 95 /min Respiratory Rate 16 /min Height 61 inches 5'1" Weight 132.00 lb BMI (Body Mass Index) 24.9 kg/m2 BSA (Body Surface Area) 1.58 m2 [place] body weight in kilograms 48 kg O2 % BldC Oximetry 86 % Ra Results Test Date Facility Test Result H/L Range Note Comprehensive 01/20/2019 [facility] Glucose 97 mg/dL Normal 74-106 1 Metabolic Panel [address] [place] [address] [phone] BUN 25 mg/dL High 7-18 Creatinine 1.1 [...] 91 U/L Normal 45-117 Laboratory test 01/20/2019 [facility] Troponin-I < 0.015 [address] ng/[place] [address] [phone] CBC W/Automated 01/20/2019 [facility] White Blood 5.4 K/uL Normal 3.1-[address] Count 0.7 [place] [address] [phone] Red Blood Count 4.46 M/uL Normal 3.90-5.40 [...] 40.4-72.8 Lymph % 24.7 % Normal 20.0-42.0 [place] % 6.3 % Normal 4.3-13.2 Eo% 2.4 % Normal 0.0-6.6 Bas% 0.2 % Normal 0.0-1.1 Immature Grans 0.2 % Normal 0.0-5.0 NRBC % 0.0 /100WBC < 10/ 100 WBC Neut# 3.57 K/uL Normal 1.8-7.0 Lymph # 1.33 K/uL Normal 1.0-4.0 [place] # 0.34 K/uL Normal 0.3-0.9 Eos # 0.13 K/uL Normal 0.0-0.5 Baso # 0.01 K/uL Normal 0.0-0.1 Immature Grans Absolute 0.01 K/uL NRBC # 0.00 K/uL Laboratory test finding 01/20/2019 [facility] Slide Review <pending> [address] [place] [address] [phone] Path Review: <pending> CBC W/Automated 12/25/2018 [facility] White Blood 7.0 K/uL Normal 3.1-10.[address] Count [place], [place] [id number] [phone] Red Blood Count 4.76 M/uL Normal 3.90-5.40 [...] 40.4-72.8 Lymph % 22.1 % Normal 20.0-42.0 [place] % 6.7 % Normal 4.3-13.2 Eo% 2.2 % Normal 0.0-6.6 Bas% 0.3 % Normal 0.0-1.1 Immature Grans 0.4 % Normal 0.0-5.0 NRBC % 0.0 /100WBC < 10/ 100 WBC Neut# 4.76 K/uL Normal 1.8-7.0 Lymph # 1.54 K/uL Normal 1.0-4.0 [place] # 0.47 K/uL Normal 0.3-0.9 Eos # 0.15 K/uL Normal 0.0-0.5 Baso # 0.02 K/uL Normal 0.0-0.1 Immature Grans Absolute 0.03 K/uL NRBC # 0.00 K/uL Slide Review 12/25/2018 [facility] Slide Review (SEE NOTE) [address] [place] [address] [phone] Laboratory test 11/09/2018 [facility] LDH 172 U/L Normal 84-24 [address] [place], [place] [id number] [phone] Comprehensive 11/09/2018 [facility] Glucose 88 mg/dL Normal 74-10 Metabolic Panel [address] [place], [place] [address] [phone] BUN 18 mg/dL Normal 7-18 Creatinine 0.9 [...] 98 U/L Normal 45-117 CBC W/Automated 11/09/2018 [facility] White Blood 5.7 K/uL Normal 3.1-10.[address] Count [place], [place] [address] [phone] Red Blood Count 4.61 M/uL Normal 3.90-5.40 [...] 40.4-72.8 Lymph % 26.1 % Normal 20.0-42.0 [place] % 5.6 % Normal 4.3-13.2 Eo% 2.8 % Normal 0.0-6.6 Bas% 0.3 % Normal 0.0-1.1 Immature Grans 0.3 % Normal 0.0-5.0 NRBC % 0.0 /100WBC < 10/ 100 WBC Neut# 3.72 K/uL Normal 1.8-7.0 Lymph # 1.50 K/uL Normal 1.0-4.0 [place] # 0.32 K/uL Normal 0.3-0.9 Eos # 0.16 K/uL Normal 0.0-0.5 Baso # 0.02 K/uL Normal 0.0-0.1 Immature Grans Absolute 0.02 K/uL NRBC # 0.00 K/uL Reticulocyte 11/09/2018 [facility] Retic 23.5 pg Low 27.9-37.0 Count,Automated [address] [place] [address] [phone] Retic % 0.8 % Normal 0.5-1.8 Immature Retic Fraction 10.8 % Normal 2.9-15.5 Hemoglobinopathy Profile 11/09/2018 [facility] Hgb A 94.6 % Low 96.4-98.8 [address] [place], [place] [address] [phone] Hgb, 0.8 % 0.0-2.0 Hgb S 0.0 % 0.0 Hgb C 0.0 % 0.0 Hgb A2 4.6 % High 1.8-3.2 Hgb Variant 0 % 0.0 Interpretation: (SEE NOTE) 9 Iron-Tibc-%Sat 11/09/2018 [facility] Serum Iron 51 g/dL Normal 50-170 [address] [place] [address] [phone] Total Iron Binding Capacity 357 g/dL Normal 250-450 Transferrin %Saturation 14 % Normal 12-57 Laboratory test 11/09/2018 [facility] Ferritin 37 ng/mL Normal 8-252 finding [address] [place] [address] [phone] Laboratory test 11/09/2018 [facility] Vitamin 36.1 30.0-100. 10 finding 134 [facility] D,25-Hydroxy ng/mL 0 [place] [address] [phone] Vitamin B12 And 11/09/2018 [facility] Vitamin B12 506 pg/mL Normal 193-986 Folate [address] [place], [place] [address] [phone] Folic Acid 14.8 ng/mL Normal 3.1-17.5 Urine Dipstick 10/15/2018 [facility] Ua Color Yellow Yellow Ua Clarity Cloudy Clear Ua Leuko neg Negative Ua Nitrite neg Negative Ua Urobilinogen 3.5 High 0.2 - 1.0 E.U./dL Ua Protein trace Negative Ua PH 7.0 6.5-7.5 Ua Blood neg Negative Ua Specific [place] 1.015 1.010-1.030 Ua Ketones neg Negative Ua Bilirubin neg Negative Ua Glucose neg Negative CBC W/Automated 10/05/2018 [facility] White 7.6 K/uL Normal 3.1-10.7 11 Diff [address] [facility] [place] [address] Count [phone] Red Blood Count 3.83 M/uL Low 3.90-5.40 [...] 40.4-72.8 Lymph % 17.4 % Low 20.0-42.0 [place] % 6.4 % Normal 4.3-13.2 Eo% 2.5 % Normal 0.0-6.6 Bas% 0.3 % Normal 0.0-1.1 Immature Grans 0.4 % Normal 0.0-5.0 NRBC % 0.0 /100WBC < 10/ 100 WBC Neut# 5.57 K/uL Normal 1.8-7.0 Lymph # 1.33 K/uL Normal 1.0-4.0 [place] # 0.49 K/uL Normal 0.3-0.9 Eos # 0.19 K/uL Normal 0.0-0.5 Baso # 0.02 K/uL Normal 0.0-0.1 Immature Grans Absolute 0.03 K/uL NRBC # 0.00 K/uL Vitamin B12 And 10/05/2018 [facility] Vitamin B12 442 pg/mL Normal 193-986 Folate [address] [place] [address] [phone] Folic Acid 13.1 ng/mL Normal 3.1-17.5 Comprehensive 10/05/2018 [facility] Glucose 79 mg/dL Normal 74-106 Metabolic Panel [address] [place] [address] [phone] BUN 17 mg/dL Normal 7-18 Creatinine 0.8 [...] Phosphatase 112 U/L Normal 45-117 Iron-Tibc-%Sat 10/05/2018 [facility] Serum Iron 45 g/dL Low 50-170 [address] [place] [address] [phone] Total Iron Binding Capacity 325 g/dL Normal 250-450 Transferrin %Saturation 14 % Normal 12-57 Laboratory 10/05/2018 [facility] Ferritin 185 ng/mL Normal 8-252 test finding [address] [place] [address] [phone] Occult 09/23/2018 [facility] Fecal Occult Negative (Negativ 14, Blood,Triple [address] [facility] Blood #1 e) 15 [place] [address] [phone] Fecal Occult Blood #2 Negative (Negative) 16 Fecal Occult Blood #3 Negative (Negative) 17 CBC W/Automated 09/11/2018 [facility] White 7.1 K/uL Normal 3.1-10.7 18 Diff [address] [facility] [place] [address] Count [phone] Red Blood Count 3.64 M/uL Low 3.90-5.40 [...] 40.4-72.8 Lymph % 20.8 % Normal 20.0-42.0 [place] % 7.5 % Normal 4.3-13.2 Eo% 2.7 % Normal 0.0-6.6 Bas% 0.3 % Normal 0.0-1.1 Immature Grans 0.3 % Normal 0.0-5.0 NRBC % 0.0 /100WBC < 10/ 100 WBC Neut# 4.84 K/uL Normal 1.8-7.0 Lymph # 1.47 K/uL Normal 1.0-4.0 [place] # 0.53 K/uL Normal 0.3-0.9 Eos # 0.19 K/uL Normal 0.0-0.5 Baso # 0.02 K/uL Normal 0.0-0.1 Immature Grans Absolute 0.02 K/uL NRBC # 0.00 K/uL Laboratory test 09/11/2018 [facility] Ferritin 21 ng/mL Normal 8-252 finding [address] [place], [place] [id number] [phone] Iron-Tibc-%Sat 09/11/2018 [facility] Serum Iron 30 g/dL Low 50-170 [address] [place], [place] [address] [phone] Total Iron Binding Capacity 315 g/dL Normal 250-450 Transferrin %Saturation 10 % Low 12-57 Comprehensive 09/11/2018 [facility] Glucose 76 mg/dL Normal 74-106 Metabolic Panel [address] [place], [place] [address] [phone] BUN 25 mg/dL High 7-18 Creatinine 0.9 [...] U/L Normal 45-117 Vitamin B12 And 09/11/2018 [facility] Vitamin B12 468 pg/mL Normal 193-986 Folate [address] [place] [address] [phone] Folic Acid > 20.0 ng/mL High 3.1-17.5 Laboratory test 09/11/2018 [facility] Vitamin 39.8 30.0-100.0 21 finding [address] D,25-Hydroxy ng/[place] [address] [phone] DOCKERY SENT TO ER, CP [...] and clinical correlation. Performed at: - [facility] [address] [id number] Veterans Service Representative: Doris Johnston MD, Phone: [phone] Vitamin D deficiency has been defined by the [place] of [employer] and an Endocrine Society practice guideline as a level of serum 25-OH vitamin D less than 20 ng/mL (1,2). The Endocrine Society went on to further define vitamin D insufficiency as a level between 21 and 29 ng/mL (2). 1. IOM ([place] of [employer]). 2010. Dietary reference intakes for calcium and D. [place]: The National Academies Press. 2. Josef MF, Bora [place], Danya TAVARES, et al. Evaluation, treatment, and prevention of vitamin D deficiency: an Endocrine Society clinical practice guideline. JCEM. 2010; 96(7):1911-30. Performed at: - [facility] [address] [id number] Veterans Service Representative: Doris Johnston MD, Phone: [phone] E61.1 D50.9 12 Note: Persistent reduction [...] 14 D64.9 E61.1 15 SPECIMEN COLLECTED ON 4/22/19 AT 0700 16 SPECIMEN COLLECTED ON 09/22/18 [...] D deficiency has been defined by the [place] of [employer] and an Endocrine Society practice guideline as a level of serum 25-OH vitamin D less than 20 ng/mL (1,2). The Endocrine Society went on to further define vitamin D insufficiency as a level between 21 and 29 ng/mL (2). 1. IOM ([place] of [employer]). 2010. Dietary reference intakes for calcium and D. [place]: The National Academies Press. 2. Josef MF, [place], Sudarshan-Lauri TAVARES, et al. Evaluation, treatment, and prevention of vitamin D deficiency: an Endocrine Society clinical practice guideline. JCEM. 2011 Nov; 96(7):1911-30. Performed at: RN - [facility] [address] [id number] Veterans Service Representative: Doris Johnston MD, Phone: [phone] Procedures Date Code Description Status 02/02/2019 19136 EKG-Tracing And Report Completed 12/30/2018 27378 Spirometry Completed 12/25/2018 58462 EKG-Tracing And Report Completed 02/27/2018 [id number] Mammogram Completed 12/13/2015 [id number] Mammogram Completed 06/02/2015 [id number] Bone Mineral Density Test Completed 11/24/2014 [id number] Mammogram Completed 06/02/2011 [id number] Colonoscopy Completed Medical Devices Description No Information Available Encounters Type Date Location Provider Dx Diagnosis Office Visit 02/02/2019 Cardiology Office Jaron Bates R07.9 Chest pain, 10:40a MAkila Kasper, FACC unspecified I71.2 Thoracic aortic aneurysm, without rupture I10 Essential (primary) hypertension Office 01/27/2019 Family Lemus, K21.9 Gastro-esophageal Visit 1:00p Medicine [place] CELIA Echevarria reflux disease RD without esophagitis I73.00 Raynaud's [...] Family Lemus K21.9 Gastro-esophageal Visit 1:15p Medicine [place] CELIA Echevarria reflux disease RD without esophagitis R09.82 Postnasal [...] 10/27/2018 Family Lemus, I73.00 Raynaud's 1:45p Medicine [place] Swathi, CONSULTING MARINE ENGINEER syndrome RD without gangrene F43.21 Adjustment disorder with depressed mood Office Visit 10/15/2018 Family Lemus, I73.00 Raynaud's 1:00p Medicine [place] Swathi, CONSULTING MARINE ENGINEER syndrome RD without gangrene F43.21 Adjustment disorder with depressed mood Office Visit 10/06/2018 1:00p Infusion Center [place], D50.9 Iron deficiency Lashaun Chung NP anemia, unspecified 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 Office Visit 09/22/2018 Family Lemus, E61.1 Iron deficiency 1:30p Medicine [place] Swathi, CONSULTING MARINE ENGINEER RD 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 S32.000A Wedge compression fracture of unsp lumbar vertebra, init I73.00 Raynaud's syndrome without gangrene Office Visit 09/21/2018 2:30p Oncology Office Lashaun Rios E61.1 Iron deficiency B., INGREDIENT HANDLER 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 , rupture [facility] 02/02/2019 I10 Essential (primary) hypertension Jaron Bates M.D., [facility] 01/27/2019 K21.9 Gastro-esophageal reflux disease Swathi Lemus FNP without esophagitis 01/27/2019 I73.00 Raynaud's syndrome without gangrene Swathi Lemus [facility] 01/27/2019 Z12.31 Encounter for screening mammogram Laura [facility] for malignant neoplasm of breast 01/27/2019 F43.21 Adjustment disorder with depressed Swathi Lemus CONSULTING MARINE ENGINEER mood 01/20/2019 R07.89 Other chest pain Kaylen Bhakat M.D. 01/20/2019 R07.0 Pain in throat Kaylen Bhakta M.D. 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 01/20/2019 R91.8 Other nonspecific abnormal finding Kaylen Bhakta M.D. 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, bronchus and lung 12/25/2018 J44.9 Chronic obstructive pulmonary Love Rizvi, PA disease, unspecified 12/25/2018 R07.89 Other chest pain Love Rizvi PA 11/09/2018 D64.9 Anemia, unspecified [place], DO 11/09/2018 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 [place], DO 11/09/2018 K21.9 Gastro-esophageal reflux disease [place], DO without esophagitis 11/09/2018 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 [place], DO 10/27/2018 I73.00 Raynaud's syndrome without gangrene Allan Swathi, CONSULTING MARINE ENGINEER 10/27/2018 F43.21 Adjustment disorder with depressed Swathi Lemus, CONSULTING MARINE ENGINEER mood 10/15/2018 I73.00 Raynaud's syndrome without gangrene Swathi Lemus, CONSULTING MARINE ENGINEER 10/15/2018 F43.21 Adjustment disorder with depressed Swathi Lemus, CONSULTING MARINE ENGINEER mood 10/06/2018 D50.9 Iron deficiency anemia, unspecified Lashaun Rios, INGREDIENT HANDLER 10/06/2018 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 Lashaun Rios, INGREDIENT HANDLER 10/05/2018 E61.1 Iron deficiency [place], DO 10/05/2018 E61.1 Iron deficiency Oncology Nurse 10/05/2018 D50.9 Iron deficiency anemia, unspecified [place], DO 10/05/2018 D50.9 Iron deficiency anemia, unspecified Oncology Nurse 09/22/2018 E61.1 Iron deficiency ClSwathi ricketts, CONSULTING MARINE ENGINEER 09/22/2018 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 Swathi Lemus, CONSULTING MARINE ENGINEER 09/22/2018 S32.000A Wedge compression fracture of Swathi Lemus FNP unspecified lumbar vertebra, i 09/22/2018 I73.00 Raynaud's syndrome without gangrene Swathi Lemus, CONSULTING MARINE ENGINEER 09/21/2018 E61.1 Iron deficiency Lashaun Rios, INGREDIENT HANDLER 09/21/2018 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 Lashaun Rios, INGREDIENT HANDLER 09/21/2018 R60.0 Localized edema Lashaun Rios, INGREDIENT HANDLER 09/11/2018 E61.1 Iron deficiency [place], DO 09/11/2018 E61.1 Iron deficiency Oncology Nurse 09/11/2018 E50.9 Vitamin A deficiency, unspecified [place], DO 09/11/2018 E50.9 Vitamin A deficiency, unspecified Oncology Nurse Plan of Treatment Future Appointment(s):08/06/2019 1:20 pm - Jaron Bates M.D., FACC at Cardiology Kljniu3504/26/2019 1:15 pm - Swathi LemusCELIA at [facility]03/24/2019 1:20 pm - Love Rizvi PA at Pulmonology Functional Status Functional Condition Comment Date Status Independent with all ADL's Active Glasses Active Complete lower and upper and lower dentures Active Mental Status Description No Information Available Referrals Refer to Dr Reason for Referral Status Appt Date Jason Briones MD Patient Notified 02/16/2019 [address] [place] [address] [phone] Jaron Bates MD FACC Closed 02/02/[address] [place] [address] [phone] Jason Briones MD 88 YOF with know GERD has had marked worsening - Sent please evalaute and treat [address] [place] [address] [phone] Kaylen Bhakta M.D. RUL opacity , new from 3 months ago. History Scheduled of [facility] [address] [place], [place] [address] [phone]
--- OUTSIDE RECORDS SUMMARY | 2019-02-28 10:04 | XMS REPORT | Continuity of Care Document ---
:1930 External Reference #:[id number] Author Name Jaron Bates M.D., [facility] Address [address] [place] [address] Care Team Providers Name Role Phone Kaylen Bhakta M.D. 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 Problems Active Problems Provider Date Chronic obstructive [...] fracture of lumbar spine Margaret Babb, PNP-BC, PIN DRAFTING MACHINE OPERATOR, Onset: 01/02 Ibclc Note: L1 25% Renal failure syndrome Ny Olmstead MD Onset: 08/25/2008 Hearing loss Ny Olmstead MD Onset: 03/29/2005 Osteoporosis Ny Olmstead MD Onset: 03/29/2005 Giant cell arteritis Ny Olmstead MD Onset: 03/20/2004 Polymyalgia rheumatica Ny Olmstead MD Onset: 03/20/2004 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 of Jackson, Julee Laila, MSN, Onset: 02/24 distal lower extremity PIN DRAFTING MACHINE OPERATOR Cerebral meningioma Ny Olmstead MD Onset: 11/24/2014 [...] QUIT Unknown IN 40'S Smoking Status Reviewed: 02/02/19 Patient is a former smoker 1 PPD X 10 YRS , QUIT IN 40'S Allergies, Adverse Reactions, Alerts Active Allergies Reaction Severity Comments Date Sulfa Drugs 07/09/2011 Budesonide 01/13/2013 Acular 12/16/2007 Penicillins 07/09/2011 Morphine 07/09/2011 Aspirin PUD 07/29/2011 Citalopram 06/06/2016 Hydroxyzine 07/16/2018 Medications Active Medications SIG Qnty Indications Ordering Date Provider Norvasc 1 by mouth every 90tabs I73.00 [place]aco, 10/15/2018 5mg Tablets day * for Raynaud's Jenniferleigh, syndrome PIN DRAFTING MACHINE OPERATOR Sertraline HCL 1 tablet once daily 30tabs F43.21 Saco, 10/15/2018 25mg Jenniferleigh, Tablets PIN DRAFTING MACHINE OPERATOR Calcitonin ([place]) one spray nasaly 3.700ml S32.000A Saco, 09/22/2018 once a day Jenporfirioferchayo, 200Unit/Act PIN DRAFTING MACHINE OPERATOR Solution Spiriva Handihaler Inhale The Contents caps Ny Olmstead, 02/23/2017 Of One Capsule Via 18mcg Capsules Handihaler Once Daily Maximum Daily Dose = 1 Simvastatin Take One Tablet By 90tabs Ny Olmstead, 04/04/2016 5mg Mouth AT Bedtime Tablets Medical Alert dx: polymyalgia Ny Olmstead, 02/23/2015 Device rheumatica; copd; MD at risk for falls Albuterol Sulfate 1 vial in nebulizer 75ml Ny Olmstead, every 4 hrs as (2.5mg/3ML) 0.083% needed for Nebulizer wheezing, sob or persistent cough Nexium 1 by mouth every 90caps Ny Olmstead, 40mg day MD Hugo SIMMS Ibandronate Sodium Take 1 Tablet By Unknown Mouth Every Month 150mg Tablets On The Same Day. Take With Full Gla Miralax 255gm with 64 oz of Unknown Powder what ever she wants to drink and drink it all Sodium 1 every month same Unknown Capsules time Propranolol HCL Take One Tablet By 90tabs Ny Olmstead, Mouth Every Day 40mg Tablets History Medications [facility] Omeprazole 1 tab po qd 30tabs Jaron Bates 12/25/2018 - 20mg Akila Smiley, [facility] Unknown Tablets DR Bernal one by mouth 30tabs I73.00 Clune, 09/22/2018 - 2.5mg every day CELIA Echevarria 10/15/2018 Tablets Immunizations CPT Code Status Date Vaccine Lot # [id number] Given 07/18/2018 Shingrix Zoster Vaccine (HZV), Recombinant, Subunit, Adjuvante 33601 Given 02/26/2018 Influenza High Dose [id number] 96160 Given 02/05/2017 Influenza High Dose [id number] Q2038 Given 03/22/2016 Influenza Vaccine (Fluzone) Age 3 And Older 28744 Given 03/29/2015 Pneumococcal Conjugate Vaccine 13 Valent For [id number] Intramuscular Use Q2038 Given 02/22/2015 Influenza Vaccine (Fluzone) Age 3 And Older [id number] 37106 Given 09/18/2012 Tdap injection 84731 Given 07/29/2011 Zoster Vaccine Live Injection 99502 Given 04/13/2010 Pneumovax Injection 41898 Given 04/16/2004 Pneumovax Injection U-Td Given 10/31/1999 Td(Adult),Unspecified 43535 Given 11/03/1997 Pneumovax Injection Vital Signs Date Vital Result Comment 02/02/2019 10:45am BP Systolic Sitting Right Arm 139 mmHg BP Diastolic Sitting Right Arm 61 mmHg Heart Rate 95 /min Respiratory Rate 16 /min Height 61 inches 5'1" Weight 132.00 lb BMI (Body Mass Index) 24.9 kg/m2 BSA (Body Surface Area) 1.58 m2 [place] body weight in kilograms 48 kg O2 % BldC Oximetry 86 % Ra 01/27/2019 1:01pm BP Systolic Sitting Left Arm 127 mmHg BP Diastolic Sitting Left Arm 61 mmHg Heart Rate 66 /min Respiratory Rate 17 /min Height 61 inches 5'1" Weight 132.00 lb BMI (Body Mass Index) 24.9 kg/m2 BSA (Body Surface Area) 1.58 m2 [place] body weight in kilograms 48 kg Results Test Date Facility Test Result H/L Range Note Comprehensive 01/20/2019 [facility] Glucose 97 mg/dL Normal 74-106 1 Metabolic Panel [address] [place] [address] [phone] BUN 25 mg/dL High 7-18 Creatinine 1.1 [...] 91 U/L Normal 45-117 Laboratory test 01/20/2019 [facility] Troponin-I < 0.015 [address] ng/[place] [address] [phone] CBC W/Automated 01/20/2019 [facility] White Blood 5.4 K/uL Normal 3.1-[address] Count 0.7 [place] [address] [phone] Red Blood Count 4.46 M/uL Normal 3.90-5.40 [...] 40.4-72.8 Lymph % 24.7 % Normal 20.0-42.0 [place] % 6.3 % Normal 4.3-13.2 Eo% 2.4 % Normal 0.0-6.6 Bas% 0.2 % Normal 0.0-1.1 Immature Grans 0.2 % Normal 0.0-5.0 NRBC % 0.0 /100WBC < 10/ 100 WBC Neut# 3.57 K/uL Normal 1.8-7.0 Lymph # 1.33 K/uL Normal 1.0-4.0 [place] # 0.34 K/uL Normal 0.3-0.9 Eos # 0.13 K/uL Normal 0.0-0.5 Baso # 0.01 K/uL Normal 0.0-0.1 Immature Grans Absolute 0.01 K/uL NRBC # 0.00 K/uL Laboratory test finding 01/20/2019 [facility] Slide Review <pending> [address] [place] [address] [phone] Path Review: <pending> CBC W/Automated 12/25/2018 [facility] White Blood 7.0 K/uL Normal 3.1-10.[address] Count [place], [place] [address] [phone] Red Blood Count 4.76 M/uL Normal 3.90-5.40 [...] 40.4-72.8 Lymph % 22.1 % Normal 20.0-42.0 [place] % 6.7 % Normal 4.3-13.2 Eo% 2.2 % Normal 0.0-6.6 Bas% 0.3 % Normal 0.0-1.1 Immature Grans 0.4 % Normal 0.0-5.0 NRBC % 0.0 /100WBC < 10/ 100 WBC Neut# 4.76 K/uL Normal 1.8-7.0 Lymph # 1.54 K/uL Normal 1.0-4.0 [place] # 0.47 K/uL Normal 0.3-0.9 Eos # 0.15 K/uL Normal 0.0-0.5 Baso # 0.02 K/uL Normal 0.0-0.1 Immature Grans Absolute 0.03 K/uL NRBC # 0.00 K/uL Slide Review 12/25/2018 [facility] Slide Review (SEE NOTE) [address] [place] [address] [phone] Comprehensive 11/09/2018 [facility] Glucose 88 mg/dL Normal 74-10 6 Metabolic Panel [address] [place], [place] [id number] [phone] BUN 18 mg/dL Normal 7-18 Creatinine 0.9 [...] 98 U/L Normal 45-117 CBC W/Automated 11/09/2018 [facility] White Blood 5.7 K/uL Normal 3.1-10.[address] [place] [address] [phone] Red Blood Count 4.61 M/uL Normal 3.90-5.40 [...] 40.4-72.8 Lymph % 26.1 % Normal 20.0-42.0 [place] % 5.6 % Normal 4.3-13.2 Eo% 2.8 % Normal 0.0-6.6 Bas% 0.3 % Normal 0.0-1.1 Immature Grans 0.3 % Normal 0.0-5.0 NRBC % 0.0 /100WBC < 10/ 100 WBC Neut# 3.72 K/uL Normal 1.8-7.0 Lymph # 1.50 K/uL Normal 1.0-4.0 [place] # 0.32 K/uL Normal 0.3-0.9 Eos # 0.16 K/uL Normal 0.0-0.5 Baso # 0.02 K/uL Normal 0.0-0.1 Immature Grans Absolute 0.02 K/uL NRBC # 0.00 K/uL Laboratory test 11/09/2018 [facility] Vitamin 36.1 30.0-100.0 [address] D,25-Hydroxy ng/[place] [address] [phone] Laboratory test 11/09/2018 [facility] LDH 172 U/L Normal 84-[address] [place] [address] [phone] Reticulocyte 11/09/2018 [facility] Retic 23.5 pg Low 27.9-37.0 Count,Automated [address] [facility] [place] [address] [phone] Retic % 0.8 % Normal 0.5-1.8 Immature Retic Fraction 10.8 % Normal 2.9-15.5 Hemoglobinopathy Profile 11/09/2018 [facility] Hgb A 94.6 % Low 96.4-98.8 [address] [place] [address] [phone] Hgb, 0.8 % 0.0-2.0 Hgb S 0.0 % 0.0 Hgb C 0.0 % 0.0 Hgb A2 4.6 % High 1.8-3.2 Hgb Variant 0 % 0.0 Interpretation: (SEE NOTE) 10 Vitamin B12 And 11/09/2018 [facility] Vitamin B12 506 pg/mL Normal 193-986 Folate [address] [place] [address] [phone] Folic Acid 14.8 ng/mL Normal 3.1-17.5 Laboratory test 11/09/2018 [facility] Ferritin 37 ng/mL Normal 8-252 finding [address] [place] [address] [phone] Iron-Tibc-%Sat 11/09/2018 [facility] Serum Iron 51 g/dL Normal 50-170 [address] [place] [address] [phone] Total Iron Binding Capacity 357 g/dL Normal 250-450 Transferrin %Saturation 14 % Normal 12-57 Urine Dipstick 10/15/2018 [facility] Ua Color Yellow Yellow Ua Clarity Cloudy Clear Ua Leuko neg Negative Ua Nitrite neg Negative Ua Urobilinogen 3.5 High 0.2 - 1.0 E.U./dL Ua Protein trace Negative Ua PH 7.0 6.5-7.5 Ua Blood neg Negative Ua Specific Cooter 1.015 1.010-1.030 Ua Ketones neg Negative Ua Bilirubin neg Negative Ua Glucose neg Negative CBC W/Automated 10/05/2018 [facility] White 7.6 K/uL Normal 3.1-10.7 11 Diff [address] [facility] [place] [address] Count [phone] Red Blood Count 3.83 M/uL Low 3.90-5.40 [...] 40.4-72.8 Lymph % 17.4 % Low 20.0-42.0 [place] % 6.4 % Normal 4.3-13.2 Eo% 2.5 % Normal 0.0-6.6 Bas% 0.3 % Normal 0.0-1.1 Immature Grans 0.4 % Normal 0.0-5.0 NRBC % 0.0 /100WBC < 10/ 100 WBC Neut# 5.57 K/uL Normal 1.8-7.0 Lymph # 1.33 K/uL Normal 1.0-4.0 [place] # 0.49 K/uL Normal 0.3-0.9 Eos # 0.19 K/uL Normal 0.0-0.5 Baso # 0.02 K/uL Normal 0.0-0.1 Immature Grans Absolute 0.03 K/uL NRBC # 0.00 K/uL Laboratory test 10/05/2018 [facility] Ferritin 185 ng/mL Normal 8-252 finding [address] [place] [address] [phone] Iron-Tibc-%Sat 10/05/2018 [facility] Serum Iron 45 g/dL Low 50-170 [address] [place] [address] [phone] Total Iron Binding Capacity 325 g/dL Normal 250-450 Transferrin %Saturation 14 % Normal 12-57 Comprehensive 10/05/2018 [facility] Glucose 79 mg/dL Normal 74-106 Metabolic Panel [address] [place] [address] [phone] BUN 17 mg/dL Normal 7-18 Creatinine 0.8 [...] 13 Alkaline Phosphatase 112 U/L Normal 45-117 Vitamin B12 And 10/05/2018 [facility] Vitamin B12 442 pg/mL Normal 193-986 Folate [address] [place] [address] [phone] Folic Acid 13.1 ng/mL Normal 3.1-17.5 Occult 09/23/2018 [facility] Fecal Negative (Negative) 14, 15 Blood,Triple [address] [facility] [place] [address] Blood #[phone] Fecal Occult Blood #2 Negative (Negative) 16 Fecal Occult Blood #3 Negative (Negative) 17 CBC W/Automated 09/11/2018 [facility] White 7.1 K/uL Normal 3.1-10.7 18 Diff [address] [facility] [place] [place] [address] Count [phone] Red Blood Count 3.64 M/uL Low 3.90-5.40 [...] 40.4-72.8 Lymph % 20.8 % Normal 20.0-42.0 [place] % 7.5 % Normal 4.3-13.2 Eo% 2.7 % Normal 0.0-6.6 Bas% 0.3 % Normal 0.0-1.1 Immature Grans 0.3 % Normal 0.0-5.0 NRBC % 0.0 /100WBC < 10/ 100 WBC Neut# 4.84 K/uL Normal 1.8-7.0 Lymph # 1.47 K/uL Normal 1.0-4.0 [place] # 0.53 K/uL Normal 0.3-0.9 Eos # 0.19 K/uL Normal 0.0-0.5 Baso # 0.02 K/uL Normal 0.0-0.1 Immature Grans Absolute 0.02 K/uL NRBC # 0.00 K/uL Laboratory test 09/11/2018 [facility] Ferritin 21 ng/mL Normal 8-252 finding [address], [place] [address] [phone] Laboratory test 09/11/2018 [facility] Vitamin 39.8 30.0-100. 19 finding [address] [facility] D,25-Hydroxy ng/mL 0 [place], [place] [id number] [phone] Vitamin B12 And 09/11/2018 [facility] Vitamin B12 468 pg/mL Normal 193-986 Folate [address], [place] [address] [phone] Folic Acid > 20.0 ng/mL High 3.1-17.5 Comprehensive 09/11/2018 [facility] Glucose 76 mg/dL Normal 74-106 Metabolic Panel [address], [place] [address] [phone] BUN 25 mg/dL High 7-18 Creatinine 0.9 mg/dL Normal 0.6-1.3 Glom Filtration Rate, Estimate >60 mL/min >60 If >60 mL/min >60 20 BUN/Creat 27.7 ratio Sodium 141 mmol/L Normal [...] Normal 0.2-1.0 Sgot/Ast 14 U/L Low 15-37 21 SGPT/Alt 12 U/L Normal 12-78 Alkaline Phosphatase 99 U/L Normal 45-117 Iron-Tibc-%Sat 09/11/2018 [facility] Serum Iron 30 g/dL Low 50-170 [address] [place] [address] [phone] Total Iron Binding Capacity 315 g/dL Normal 250-450 Transferrin %Saturation 10 % Low 12-57 Laboratory test finding 08/12/2018 [facility] Fit Hemoccult negative Urine Dipstick 08/12/2018 [facility] Ua Leuko - Negative Ua Nitrite - Negative Ua Urobilinogen .2 0.2 - 1.0 E.U./dL Ua Protein - Negative Ua PH 5 Low 6.5-7.5 Ua Blood - Negative Ua Specific Cooter 1.025 1.010-1.030 Ua Ketones - Negative Ua Bilirubin - Negative Ua Glucose - Negative Comprehensive 08/03/2018 [facility] Glucose 99 mg/dL Normal 74-106 22 Metabolic Panel [address] [place] [address] [phone] BUN 23 mg/dL High 7-18 Creatinine 1.0 mg/dL Normal 0.6-1.3 Glom Filtration Rate, Estimate 56 mL/min >60 If >60 mL/min >60 23 BUN/Creat 23.0 ratio Sodium 142 mmol/L Normal 136-145 Potassium 4.1 mmol/L Normal 3.5-5.1 Chloride 107 mmol/L Normal 98-107 Carbon Dioxide 30 mmol/L Normal 21-32 Anion Gap 5 mEq/L Low 8-16 Calcium 8.7 mg/dL Normal 8.5-10.1 Total Protein 6.6 g/dL Normal 6.4-8.2 Albumin 3.1 g/dL Low 3.4-5.0 Globulin 3.5 g/dL Normal 1.9-4.3 Alb/Glob 0.9 ratio Bilirubin,Total 0.4 mg/dL Normal 0.2-1.0 Sgot/Ast 15 U/L Normal 15-37 SGPT/Alt 8 U/L Low 12-78 24 Alkaline Phosphatase 82 U/L Normal 45-117 Laboratory test 08/03/2018 [facility] Troponin-I < 0.015 [address] ng/[place] [address] [phone] CBC W/Automated 08/03/2018 [facility] White Blood 6.0 K/uL Normal 3.1-[address] Count 0.7 [place] [address] [phone] Red Blood Count 4.30 M/uL Normal 3.90-5.40 Hemoglobin 9.4 gm/dL Low 11.6-15.8 Hematocrit 29.5 % Low 36.0-46.1 Mean Cell Volume 68.6 fl Low 80.9-99.0 Mean Corpuscular HGB 21.9 pg Low 25.9-32.7 Mean Corpuscular HGB Conc 31.9 g/dL Normal 30.8-34.3 Platelet Count 221 K/uL Normal 155-360 Red Cell Distri Width SD 37.1 fl Normal 36-47 Red Cell Distri Width %CV 15.2 % High 11.7-14.4 Mean Platelet Volume 11.1 fL Normal 8.9-12.4 Neut% 70.8 % Normal 40.4-72.8 Lymph % 18.9 % Low 20.0-42.0 [place] % 7.5 % Normal 4.3-13.2 Eo% 2.5 % Normal 0.0-6.6 Bas% 0.3 % Normal 0.0-1.1 Neut# 4.22 K/uL Normal 1.8-7.0 Lymph # 1.13 K/uL Normal 1.0-4.0 [place] # 0.45 K/uL Normal 0.3-0.9 Eos # 0.15 K/uL Normal 0.0-0.5 Baso # 0.02 K/uL Normal 0.0-0.1 Slide Review 08/03/2018 [facility] Slide Review . [address] [place] [address] [phone] RBC Morphology Only 08/03/2018 [facility] Polychromasia 0-1+ [address] [place] [address] [phone] Hypochromia 0-1+ Poikilocytosis 1+ Anisocytosis 1+ Microcytosis 2+ Ovalocytes 2+ Elliptocytes 1+ Acanthocytes 0-1+ 1 DR DOCKERY SENT TO ER, CP [...] normal populations. Clinical correlation is suggested. 9 Vitamin D deficiency has been defined by the [place] of [employer] and an Endocrine Society practice guideline as a level of serum 25-OH vitamin D less than 20 ng/mL (1,2). The Endocrine Society went on to further define vitamin D insufficiency as a level between 21 and 29 ng/mL (2). 1. IOM ([place] of [employer]). 2010. Dietary reference intakes for calcium and D. [place]: The National Academies Press. 2. Bora Deluca, Danya TAVARES, et al. Evaluation, treatment, and prevention of vitamin D deficiency: an Endocrine Society clinical practice guideline. JCEM. 2010; 96(7):1911-30. 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 Suggest hematologic and clinical correlation. Performed at: - [facility] [address] [id number] Improvement Engineer: Doris Johnston MD, Phone: [phone] E61.1 D50.9 12 Note: Persistent reduction [...] 09/23/18 AT 1030 18 E61.1 D50.9 19 Vitamin D deficiency has been defined by the [place] of [employer] and an Endocrine Society practice guideline as a level of serum 25-OH vitamin D less than 20 ng/mL (1,2). The Endocrine Society went on to further define vitamin D insufficiency as a level between 21 and 29 ng/mL (2). 1. IOM ([place] of [employer]). 2010. Dietary reference intakes for calcium and D. [place]: The National Academies Press. 2. Bora Deluca, Danya TAVARES, et al. Evaluation, treatment, and prevention of vitamin D deficiency: an Endocrine Society clinical practice guideline. JCEM. 2010; 96(7):1911-30. Performed at: RN - [facility] [address], [place], [place] [id number] Improvement Engineer: Doris Johnston MD, Phone: [phone] 20 Note: Persistent reduction for 3 months or more in an eGFR <60 mL/min/1.73 m2 defines CKD. Patients with eGFR values >/=60 mL/min/1.73 m2 may also have CKD if evidence of persistent proteinuria is present. The original MDRD equation for estimated GFR is not valid for patients less than 18 years of age. Additional information may be found at www.kdoqi.org. 21 Values below the stated reference ranges of AST and ALT can be seen in normal populations. Clinical correlation is suggested. 22 FELL 07/31/18, NOW HARD TO BREATH 23 Note: Persistent reduction for 3 months or more in an eGFR <60 mL/min/1.73 m2 defines CKD. Patients with eGFR values >/=60 mL/min/1.73 m2 may also have CKD if evidence of persistent proteinuria is present. The original MDRD equation for estimated GFR is not valid for patients less than 18 years of age. Additional information may be found at www.kdoqi.org. 24 Values below the stated reference ranges of AST and ALT can be seen in normal populations. Clinical correlation is suggested. 25 0.0 - 0.045 ng/mL: Normal 0.046 - 0.5 ng/mL: Suggestive 0.6 - 1.5 ng/mL: Consistent 26 Instrument flagged sample for slide review. Less than 10% Bands seen, no other immature WBC's seen. Platelet estimate = NORMAL Procedures Date Code Description Status 12/25/2018 05096 EKG-Tracing And Report Completed 02/27/2018 [id number] Mammogram Completed 12/13/2015 [id number] Mammogram Completed 06/02/2015 [id number] Bone Mineral Density Test Completed 11/24/2014 [id number] Mammogram Completed 06/02/2011 [id number] Colonoscopy Completed Medical Devices Description No Information Available Encounters Type Date Location Provider Dx Diagnosis Office Visit 01/27/2019 Family Medicine Allan, K21.9 Gastro-esophageal 1:[address] Swathi, reflux disease PIN DRAFTING MACHINE OPERATOR without esophagitis I73.00 Raynaud's syndrome without gangrene Z12.31 Encntr screen mammogram for malignant neoplasm of breast F43.21 Adjustment disorder with depressed mood Office Visit 01/20/2019 2:30p Physical Medicine & Mezu, Kaylen, R07.89 Other chest Infectious Disease M.D. 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, bronchus and lung J44.9 Chronic obstructive pulmonary disease, unspecified R07.89 Other chest pain Office Visit 11/09/2018 4:00p Oncology Office Ena, D64.9 Anemia, La, DO unspecified 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 K21.9 Gastro-esophageal reflux disease without esophagitis 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 Office Visit 10/27/2018 Family Lemus, I73.00 Raynaud's 1:45p Medicine Poth Swathi, PIN DRAFTING MACHINE OPERATOR syndrome RD without gangrene F43.21 Adjustment disorder with depressed mood Office Visit 10/15/2018 Family Lemus, I73.00 Raynaud's 1:00p Medicine Poth Swathi, PIN DRAFTING MACHINE OPERATOR syndrome RD without gangrene F43.21 Adjustment disorder with depressed mood Office Visit 10/06/2018 1:00p Infusion Center [place]anca D50.9 Iron deficiency Lashaun Chung NP anemia, unspecified 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 Office Visit 09/22/2018 Family Lemus, E61.1 Iron deficiency 1:30p Medicine Poth Swathi, PIN DRAFTING MACHINE OPERATOR RD 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 S32.000A Wedge compression fracture of unsp lumbar vertebra, init I73.00 Raynaud's syndrome without gangrene Office Visit 09/21/2018 2:30p Oncology Office Lashaun Rios E61.1 Iron deficiency Juliet, EQUINE VET 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 R60.0 Localized edema Office Visit 08/20/2018 1:45p Pulmonology Jeremias Lowry, A31.0 Pulmonary MD mycobacterial infection I73.00 Raynaud's syndrome without gangrene J44.9 Chronic obstructive pulmonary disease, unspecified K21.9 Gastro-esophageal reflux disease without esophagitis J18.9 Pneumonia, unspecified organism Office Visit 08/12/2018 Family Allan, J18.9 Pneumonia, 9:00a Medicine [place] CELIA Echevarria unspecified RD organism R68.2 Dry mouth, unspecified L30.9 Dermatitis, unspecified D50.9 Iron deficiency anemia, unspecified Assessments Date Code Description Provider 02/02/2019 R07.9 Chest pain, unspecified Jaron Bates M.D., [facility] 02/02/2019 I71.2 Thoracic aortic aneurysm, without Jaron Bates M.D. , rupture [facility] 02/02/2019 I10 Essential (primary) hypertension Jaron Bates M.D., [facility] 01/27/2019 K21.9 Gastro-esophageal reflux disease Swathi Lemus FNP without esophagitis 01/27/2019 I73.00 Raynaud's syndrome without gangrene Swathi Lemus FNP 01/27/2019 Z12.31 Encounter for screening mammogram Swathi Lemus FNP for malignant neoplasm of breast 01/27/2019 F43.21 Adjustment disorder with depressed Swathi Lemus FNP mood 01/20/2019 R07.89 Other chest pain Kaylen Bhakta M.D. 01/20/2019 R07.0 Pain in throat Kaylen Bhakta M.D. 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 01/20/2019 R91.8 Other nonspecific abnormal finding Kaylen Bhakta M.D. 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 AlbertLa gordon, DO 10/27/2018 I73.00 Raynaud's syndrome without gangrene NagaLaura rickettsbeltrantono, PIN DRAFTING MACHINE OPERATOR 10/27/2018 F43.21 Adjustment disorder with depressed Swathi Lemus, [facility] mood 10/15/2018 I73.00 Raynaud's syndrome without gangrene NagaSwathi ricketts, PIN DRAFTING MACHINE OPERATOR 10/15/2018 F43.21 Adjustment disorder with depressed Swathi Lemus, PIN DRAFTING MACHINE OPERATOR mood 10/06/2018 D50.9 Iron deficiency anemia, unspecified Lashaun Rios, EQUINE VET 10/06/2018 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 Lashaun Rios, EQUINE VET 10/05/2018 E61.1 Iron deficiency PeteLa swan, DO 10/05/2018 E61.1 Iron deficiency Oncology Nurse 10/05/2018 D50.9 Iron deficiency anemia, unspecified Ena La, DO 10/05/2018 D50.9 Iron deficiency anemia, unspecified Oncology Nurse 09/22/2018 E61.1 Iron deficiency NagaSwathi ricketts, PIN DRAFTING MACHINE OPERATOR 09/22/2018 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 AllanKeyanaporfiriobalachayo, PIN DRAFTING MACHINE OPERATOR 09/22/2018 S32.000A Wedge compression fracture of Allan Jose Gtono, PIN DRAFTING MACHINE OPERATOR unspecified lumbar vertebra, i 09/22/2018 I73.00 Raynaud's syndrome without gangrene Swathi Lemus, PIN DRAFTING MACHINE OPERATOR 09/21/2018 E61.1 Iron deficiency Lashaun Rios, EQUINE VET 09/21/2018 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 Lashaun Rios, EQUINE VET 09/21/2018 R60.0 Localized edema Lashaun Rios, EQUINE VET 09/11/2018 E61.1 Iron deficiency [place], DO 09/11/2018 E61.1 Iron deficiency Oncology Nurse 09/11/2018 E50.9 Vitamin A deficiency, unspecified [place], DO 09/11/2018 E50.9 Vitamin A deficiency, unspecified Oncology Nurse 08/20/2018 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 Jeremias Lowry MD 08/20/2018 I73.00 Raynaud's syndrome without gangrene Jeremias Lowry MD 08/20/2018 J44.9 Chronic obstructive pulmonary Jeremias Lowry MD disease, unspecified 08/20/2018 K21.9 Gastro-esophageal reflux disease Jeremias Lowry MD without esophagitis 08/20/2018 J18.9 Pneumonia, unspecified organism Jeremias Lowry MD 08/12/2018 J18.9 Pneumonia, unspecified organism Clune, Jenniferchayo, PIN DRAFTING MACHINE OPERATOR 08/12/2018 R68.2 Dry mouth, unspecified Clune, Jenniferbeltrangh, PIN DRAFTING MACHINE OPERATOR 08/12/2018 L30.9 Dermatitis, unspecified Clune, Jenniferbeltrangh, PIN DRAFTING MACHINE OPERATOR 08/12/2018 D50.9 Iron deficiency anemia, unspecified Clune, Jenniferleigh, PIN DRAFTING MACHINE OPERATOR 08/03/2018 J18.9 Pneumonia, unspecified organism Clark Christensen FNP 08/03/2018 M79.602 Pain in left arm Clark Christensen FNP 08/03/2018 W19.xxxA Unspecified fall, initial encounter Clark Christensen FNP 08/03/2018 J44.9 Chronic obstructive pulmonary Clark Christensen FNP disease, unspecified Plan of Treatment Future Appointment(s):08/06/2019 1:20 pm - Jaron Bates M.D., FAC at Cardiology Hkejan1004/26/2019 1:15 pm - Swathi Lemus FNP at [facility] RD03/24/2019 1:20 pm - Love Rizvi PA at Pulmonology Functional Status Functional Condition Comment Date Status Independent with all ADL's Active Glasses Active Complete lower and upper and lower dentures Active Mental Status Description No Information Available Referrals Refer to Dr Reason for Referral Status Appt Date Jason Briones MD Scheduled 02/16/2019 [address] [place] [address] [phone] [facility] Patient Notified 02/02/[address] [place] [address] [phone] Jason Briones MD 88 YOF with know GERD has had marked worsening - Sent please evalaute and treat [address] [place] [address] [phone] Kaylne Bhakta M.D. RUL opacity , new from 3 months ago. History Scheduled of [facility] [address] [place] [address] [phone]
--- OUTSIDE RECORDS SUMMARY | 2019-02-28 10:04 | XMS REPORT | Continuity of Care Document ---
:1930 External Reference #:[id number] Author Name Swathi Lemus, [facility] Address [address] [place] [id number] Care Team Providers Name Role Phone Kaylen Bhakta M.D. - Infectious Care Team Information Attendant [facility] Disease Swathi Lemus TECHNICAL SALES SUPPORT SPECIALIST - Nurse Care Team Information Attendant [facility] [phone] Practitioner Love Rizvi PA - Physician Care Team Information Attendant [facility] Chemical Operations Specialist Problems Active Problems Provider Date Chronic obstructive [...] fracture of lumbar spine Margaret Babb, PNP-BC, ENGINEERING CLERK, Onset: 01/02 Ibclc Note: L1 25% Renal failure syndrome Ny Olmstead MD Onset: 08/25/2008 Hearing loss Ny Olmstead MD Onset: 03/29/2005 Osteoporosis Ny Olmstead MD Onset: 03/29/2005 Giant cell arteritis Ny Olmstead MD Onset: 03/20/2004 Polymyalgia rheumatica Ny Olmstead MD Onset: 03/20/2004 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 of Julee Jacksonleida, MSN, Onset: 02/24 distal lower extremity ENGINEERING CLERK Cerebral meningioma Ny Olmstead MD Onset: 11/24/2014 [...] QUIT Unknown IN 40'S Smoking Status Reviewed: 01/27/19 Patient is a former smoker 1 PPD X 10 YRS , QUIT IN 40'S Allergies, Adverse Reactions, Alerts Active Allergies Reaction Severity Comments Date Sulfa Drugs 07/09/2011 Budesonide 01/13/2013 Acular 12/16/2007 Penicillins 07/09/2011 Morphine 07/09/2011 Aspirin PUD 07/29/2011 Citalopram 06/06/2016 Hydroxyzine 07/16/2018 Medications Active Medications SIG Qnty Indications Ordering Date Provider Norvasc 1 by mouth every 90tabs I73.00 Castor, 10/15/2018 5mg Tablets day * for Swathi Raynaud's syndrome ENGINEERING CLERK Sertraline HCL 1 tablet once 30tabs F43.21 Castor, 10/15/2018 25mg daily Alineferchayo, Tablets ENGINEERING CLERK Calcitonin ([place]) one spray nasaly 3.700ml S32.000A Castor, 09/22/2018 once a day Swathi, 200Unit/Act Solution ENGINEERING CLERK Spiriva Handihaler Inhale The caps Ny Olmstead, [...] 1 every month same Unknown Capsules time Nitroglycerin Apply One Patch To Unknown 0.4mg/HR Skin From 9 In The Patches 24HR Evening To 9 In The Morning Propranolol HCL Take One Tablet By 90tabs Ny Olmstead, 40mg Mouth Every Day Tablets History Medications [facility] Omeprazole 1 tab po qd 30tabs Jaron Bates 12/25/2018 - 20mg Akila Smiley, [facility] Unknown Tablets DR Bernal one by mouth 30tabs I73.00 [place], 09/22/2018 - 2.5mg every day CELIA Echevarria 10/15/2018 Tablets Immunizations CPT Code Status Date Vaccine Lot # [id number] Given 07/18/2018 Shingrix Zoster Vaccine (HZV), Recombinant, Subunit, Adjuvante 16831 Given 02/26/2018 Influenza High Dose [id number] 23538 Given 02/05/2017 Influenza High Dose [id number] Q2038 Given 03/22/2016 Influenza Vaccine (Fluzone) Age 3 And Older 02324 Given 03/29/2015 Pneumococcal Conjugate Vaccine 13 Valent For [id number] Intramuscular Use Q2038 Given 02/22/2015 Influenza Vaccine (Fluzone) Age 3 And Older [id number] 14745 Given 09/18/2012 Tdap injection 48223 Given 07/29/2011 Zoster Vaccine Live Injection 47820 Given 04/13/2010 Pneumovax Injection 16319 Given 04/16/2004 Pneumovax Injection U-Td Given 10/31/1999 Td(Adult),Unspecified 51775 Given 11/03/1997 Pneumovax Injection Vital Signs Date Vital Result Comment 01/27/2019 1:01pm BP Systolic Sitting Left Arm 127 mmHg BP Diastolic Sitting Left Arm 61 mmHg Heart Rate 66 /min Respiratory Rate 17 /min Height 61 inches 5'1" Weight 132.00 lb BMI (Body Mass Index) 24.9 kg/m2 BSA (Body Surface Area) 1.58 m2 [place] body weight in kilograms 48 kg 01/20/2019 2:36pm BP Systolic Sitting Left Arm 121 mmHg BP Diastolic Sitting Left Arm 61 mmHg Heart Rate 61 /min Height 61 inches 5'1" Weight 131.00 lb BMI (Body Mass Index) 24.7 kg/m2 BSA (Body Surface Area) 1.58 m2 [place] body weight in kilograms 48 kg O2 % BldC Oximetry 96 % ra Results Test Date Facility Test Result H/L Range Note Comprehensive 01/20/2019 [facility] Glucose 97 mg/dL Normal 74-106 1 Metabolic Panel [address] [place] [address] [phone] BUN 25 mg/dL High 7-18 Creatinine 1.1 [...] 91 U/L Normal 45-117 Laboratory test 01/20/2019 [facility] Troponin-I < 0.015 [address] ng/[place] [address] [phone] CBC W/Automated 01/20/2019 [facility] White Blood 5.4 K/uL Normal 3.1-[address] Count 0.7 [place] [address] [phone] Red Blood Count 4.46 M/uL Normal 3.90-5.40 [...] 40.4-72.8 Lymph % 24.7 % Normal 20.0-42.0 [place] % 6.3 % Normal 4.3-13.2 Eo% 2.4 % Normal 0.0-6.6 Bas% 0.2 % Normal 0.0-1.1 Immature Grans 0.2 % Normal 0.0-5.0 NRBC % 0.0 /100WBC < 10/ 100 WBC Neut# 3.57 K/uL Normal 1.8-7.0 Lymph # 1.33 K/uL Normal 1.0-4.0 [place] # 0.34 K/uL Normal 0.3-0.9 Eos # 0.13 K/uL Normal 0.0-0.5 Baso # 0.01 K/uL Normal 0.0-0.1 Immature Grans Absolute 0.01 K/uL NRBC # 0.00 K/uL Laboratory test finding 01/20/2019 [facility] Slide Review <pending> [address] [place] [address] [phone] Path Review: <pending> CBC W/Automated 12/25/2018 [facility] White Blood 7.0 K/uL Normal 3.1-10.[address] [place] [address] [phone] Red Blood Count 4.76 M/uL Normal 3.90-5.40 [...] 40.4-72.8 Lymph % 22.1 % Normal 20.0-42.0 [place] % 6.7 % Normal 4.3-13.2 Eo% 2.2 % Normal 0.0-6.6 Bas% 0.3 % Normal 0.0-1.1 Immature Grans 0.4 % Normal 0.0-5.0 NRBC % 0.0 /100WBC < 10/ 100 WBC Neut# 4.76 K/uL Normal 1.8-7.0 Lymph # 1.54 K/uL Normal 1.0-4.0 [place] # 0.47 K/uL Normal 0.3-0.9 Eos # 0.15 K/uL Normal 0.0-0.5 Baso # 0.02 K/uL Normal 0.0-0.1 Immature Grans Absolute 0.03 K/uL NRBC # 0.00 K/uL Slide Review 12/25/2018 [facility] Slide Review (SEE NOTE) [address] [place] [address] [phone] [facility] 11/09/2018 [facility] Glucose 88 mg/dL Normal 74-10 6 Metabolic Panel [address] [place] [address] [phone] BUN 18 mg/dL Normal 7-18 Creatinine 0.9 [...] 98 U/L Normal 45-117 CBC W/Automated 11/09/2018 [facility] White Blood 5.7 K/uL Normal 3.1-10.[address] [place] [address] [phone] Red Blood Count 4.61 M/uL Normal 3.90-5.40 [...] 40.4-72.8 Lymph % 26.1 % Normal 20.0-42.0 [place] % 5.6 % Normal 4.3-13.2 Eo% 2.8 % Normal 0.0-6.6 Bas% 0.3 % Normal 0.0-1.1 Immature Grans 0.3 % Normal 0.0-5.0 NRBC % 0.0 /100WBC < 10/ 100 WBC Neut# 3.72 K/uL Normal 1.8-7.0 Lymph # 1.50 K/uL Normal 1.0-4.0 [place] # 0.32 K/uL Normal 0.3-0.9 Eos # 0.16 K/uL Normal 0.0-0.5 Baso # 0.02 K/uL Normal 0.0-0.1 Immature Grans Absolute 0.02 K/uL NRBC # 0.00 K/uL Laboratory test 11/09/2018 [facility] Vitamin 36.1 30.0-100.0 [address] D,25-Hydroxy ng/[place] [address] [phone] Laboratory test 11/09/2018 [facility] LDH 172 U/L Normal 84-[address] [place], [place] [id number] [phone] Reticulocyte 11/09/2018 [facility] Retic 23.5 pg Low 27.9-37.0 Count,Automated [address] [address] [phone] Retic % 0.8 % Normal 0.5-1.8 Immature Retic Fraction 10.8 % Normal 2.9-15.5 Hemoglobinopathy Profile 11/09/2018 [facility] Hgb A 94.6 % Low 96.4-98.8 [address] [place] [address] [phone] Hgb, 0.8 % 0.0-2.0 Hgb S 0.0 % 0.0 Hgb C 0.0 % 0.0 Hgb A2 4.6 % High 1.8-3.2 Hgb Variant 0 % 0.0 Interpretation: (SEE NOTE) 10 Vitamin B12 And 11/09/2018 [facility] Vitamin B12 506 pg/mL Normal 193-986 Folate [address] [place] [address] [phone] Folic Acid 14.8 ng/mL Normal 3.1-17.5 Laboratory test 11/09/2018 [facility] Ferritin 37 ng/mL Normal 8-252 finding [address] [place] [address] [phone] Iron-Tibc-%Sat 11/09/2018 [facility] Serum Iron 51 g/dL Normal 50-170 [address] [place] [address] [phone] Total Iron Binding Capacity 357 g/dL Normal 250-450 Transferrin %Saturation 14 % Normal 12-57 Urine Dipstick 10/15/2018 [facility] Ua Color Yellow Yellow Ua Clarity Cloudy Clear Ua Leuko neg Negative Ua Nitrite neg Negative Ua Urobilinogen 3.5 High 0.2 - 1.0 E.U./dL Ua Protein trace Negative Ua PH 7.0 6.5-7.5 Ua Blood neg Negative Ua Specific [place] 1.015 1.010-1.030 Ua Ketones neg Negative Ua Bilirubin neg Negative Ua Glucose neg Negative CBC W/Automated 10/05/2018 [facility] White 7.6 K/uL Normal 3.1-10.7 11 Diff [address] [place] [address] Count [phone] Red Blood Count 3.83 M/uL Low 3.90-5.40 [...] 40.4-72.8 Lymph % 17.4 % Low 20.0-42.0 [place] % 6.4 % Normal 4.3-13.2 Eo% 2.5 % Normal 0.0-6.6 Bas% 0.3 % Normal 0.0-1.1 Immature Grans 0.4 % Normal 0.0-5.0 NRBC % 0.0 /100WBC < 10/ 100 WBC Neut# 5.57 K/uL Normal 1.8-7.0 Lymph # 1.33 K/uL Normal 1.0-4.0 [place] # 0.49 K/uL Normal 0.3-0.9 Eos # 0.19 K/uL Normal 0.0-0.5 Baso # 0.02 K/uL Normal 0.0-0.1 Immature Grans Absolute 0.03 K/uL NRBC # 0.00 K/uL Laboratory test 10/05/2018 [facility] Ferritin 185 ng/mL Normal 8-252 finding [address] [place] [address] [phone] Iron-Tibc-%Sat 10/05/2018 [facility] Serum Iron 45 g/dL Low 50-170 [address] [place] [address] [phone] Total Iron Binding Capacity 325 g/dL Normal 250-450 Transferrin %Saturation 14 % Normal 12-57 Comprehensive 10/05/2018 [facility] Glucose 79 mg/dL Normal 74-106 Metabolic Panel [address] [place] [address] [phone] BUN 17 mg/dL Normal 7-18 Creatinine 0.8 [...] U/L Normal 45-117 Vitamin B12 And 10/05/2018 [facility] Vitamin B12 442 pg/mL Normal 193-986 Folate [address] [place] [address] [phone] Folic Acid 13.1 ng/mL Normal 3.1-17.5 Occult 09/23/2018 [facility] Fecal Negative (Negative) 14, 15 Blood,Triple [address] [place] [place] [address] Blood [phone] Fecal Occult Blood #2 Negative (Negative) 16 Fecal Occult Blood #3 Negative (Negative) 17 CBC W/Automated 09/11/2018 [facility] White 7.1 K/uL Normal 3.1-10.7 18 Diff [address] [place] [address] Count [phone] Red Blood Count 3.64 M/uL Low 3.90-5.40 [...] 40.4-72.8 Lymph % 20.8 % Normal 20.0-42.0 [place] % 7.5 % Normal 4.3-13.2 Eo% 2.7 % Normal 0.0-6.6 Bas% 0.3 % Normal 0.0-1.1 Immature Grans 0.3 % Normal 0.0-5.0 NRBC % 0.0 /100WBC < 10/ 100 WBC Neut# 4.84 K/uL Normal 1.8-7.0 Lymph # 1.47 K/uL Normal 1.0-4.0 [place] # 0.53 K/uL Normal 0.3-0.9 Eos # 0.19 K/uL Normal 0.0-0.5 Baso # 0.02 K/uL Normal 0.0-0.1 Immature Grans Absolute 0.02 K/uL NRBC # 0.00 K/uL Laboratory test 09/11/2018 [facility] Ferritin 21 ng/mL Normal 8-252 finding [address] [place], [place] [address] [phone] Laboratory test 09/11/2018 [facility] Vitamin 39.8 30.0-100. 19 finding [address] D,25-Hydroxy ng/mL 0 [place], [place] [address] [phone] Vitamin B12 And 09/11/2018 [facility] Vitamin B12 468 pg/mL Normal 193-986 Folate [address] [place], [place] [address] [phone] Folic Acid > 20.0 ng/mL High 3.1-17.5 Comprehensive 09/11/2018 [facility] Glucose 76 mg/dL Normal 74-106 Metabolic Panel [address] [place], [place] [address] [phone] BUN 25 mg/dL High 7-18 Creatinine 0.9 [...] Phosphatase 99 U/L Normal 45-117 Iron-Tibc-%Sat 09/11/2018 [facility] Serum Iron 30 g/dL Low 50-170 [address] [place] [address] [phone] Total Iron Binding Capacity 315 g/dL Normal 250-450 Transferrin %Saturation 10 % Low 12-57 Laboratory test finding 08/12/2018 [facility] Fit Hemoccult negative Urine Dipstick 08/12/2018 [facility] Ua Leuko - Negative Ua Nitrite - Negative Ua Urobilinogen .2 0.2 - 1.0 E.U./dL Ua Protein - Negative Ua PH 5 Low 6.5-7.5 Ua Blood - Negative Ua Specific [place] 1.025 1.010-1.030 Ua Ketones - Negative Ua Bilirubin - Negative Ua Glucose - Negative Comprehensive 08/03/2018 [facility] Glucose 99 mg/dL Normal 74-106 22 Metabolic Panel [address] [place] [address] [phone] BUN 23 mg/dL High 7-18 Creatinine 1.0 [...] 82 U/L Normal 45-117 Laboratory test 08/03/2018 [facility] Troponin-I < 0.015 [address] ng/[place] [address] [phone] CBC W/Automated 08/03/2018 [facility] White Blood 6.0 K/uL Normal 3.1-[address] Count 0.7 [place] [address] [phone] Red Blood Count 4.30 M/uL Normal 3.90-5.40 [...] 40.4-72.8 Lymph % 18.9 % Low 20.0-42.0 [place] % 7.5 % Normal 4.3-13.2 Eo% 2.5 % Normal 0.0-6.6 Bas% 0.3 % Normal 0.0-1.1 Neut# 4.22 K/uL Normal 1.8-7.0 Lymph # 1.13 K/uL Normal 1.0-4.0 [place] # 0.45 K/uL Normal 0.3-0.9 Eos # 0.15 K/uL Normal 0.0-0.5 Baso # 0.02 K/uL Normal 0.0-0.1 Slide Review 08/03/2018 [facility] Slide Review . [address] [place] [address] [phone] RBC Morphology Only 08/03/2018 [facility] Polychromasia 0-1+ [address] [place] [address] [phone] Hypochromia 0-1+ Poikilocytosis 1+ Anisocytosis 1+ Microcytosis [...] D deficiency has been defined by the [place] of Medicine and an Endocrine Society practice guideline as a level of serum 25-OH vitamin D less than 20 ng/mL (1,2). The Endocrine Society went on to further define vitamin D insufficiency as a level between 21 and 29 ng/mL (2). 1. IOM ([place] of Medicine). 2010. Dietary reference intakes for calcium and D. [place]: The National Academies Press. 2. Bora Deluca, Danya TAVARES, et al. Evaluation, treatment, and prevention of vitamin D deficiency: an Endocrine Society clinical practice guideline. JCEM. 2010; 96(5):1911-30. 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 Suggest hematologic and clinical correlation. Performed at: RN - [facility] [address] [id number] Serologist: Doris Johnston MD, Phone: [phone] E61.1 D50.9 12 Note: Persistent reduction [...] D deficiency has been defined by the [place] of Medicine and an Endocrine Society practice guideline as a level of serum 25-OH vitamin D less than 20 ng/mL (1,2). The Endocrine Society went on to further define vitamin D insufficiency as a level between 21 and 29 ng/mL (2). 1. IOM ([place] of Medicine). 2010. Dietary reference intakes for calcium and D. [place]: The National Academies Press. 2. Bora Deluca, Danya TAVARES, et al. Evaluation, treatment, and prevention of vitamin D deficiency: an Endocrine Society clinical practice guideline. JCEM. 2010; 96(7):1911-30. Performed at: RN - [facility] [address] [id number] Serologist: Doris Johnston MD, Phone: [phone] Note: Persistent reduction for 3 months [...] NORMAL Procedures Date Code Description Status 12/25/2018 93467 EKG-Tracing And Report Completed 02/27/2018 91494006 Mammogram Completed 12/13/2015 [id number] Mammogram Completed 06/02/2015 813821744 Bone Mineral Density Test Completed 11/24/2014 [id number] Mammogram Completed 06/02/2011 [id number] Colonoscopy Completed Medical Devices Description No Information Available Encounters Type Date Location Provider Dx Diagnosis Office Visit 01/20/2019 Physical Medicine & Kaylen Bhakta, R07.89 Other chest pain 2:30p Infectious Disease M.D. 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, bronchus and lung J44.9 Chronic obstructive pulmonary disease, unspecified R07.89 Other chest pain Office Visit 11/09/2018 4:00p Oncology Office Ena D64.9 Anemia, La, DO unspecified 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 K21.9 Gastro-esophageal reflux disease without esophagitis 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 Office Visit 10/27/2018 Family Lemus, I73.00 Raynaud's 1:45p Medicine Graham Swathi, ENGINEERING CLERK syndrome RD without gangrene F43.21 Adjustment disorder with depressed mood Office Visit 10/15/2018 Family Lemus, I73.00 Raynaud's 1:00p Medicine Graham Swathi, ENGINEERING CLERK syndrome RD without gangrene F43.21 Adjustment disorder with depressed mood Office Visit 10/06/2018 1:00p Infusion Center Blanca, D50.9 Iron deficiency Lashaun Chung, TECHNICAL SALES SUPPORT SPECIALIST anemia, unspecified 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 Office Visit 09/22/2018 Family Lemus, E61.1 Iron deficiency 1:30p Medicine Graham Swathi, ENGINEERING CLERK RD 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 S32.000A Wedge compression fracture of unsp lumbar vertebra, init I73.00 Raynaud's syndrome without gangrene Office Visit 09/21/2018 2:30p Oncology Office Lashaun Rios E61.1 Iron deficiency B., TECHNICAL SALES SUPPORT SPECIALIST 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 R60.0 Localized edema Office Visit 08/20/2018 1:45p Pulmonology Jeremias Lowry, A31.0 Pulmonary MD mycobacterial infection I73.00 Raynaud's syndrome without gangrene J44.9 Chronic obstructive pulmonary disease, unspecified K21.9 Gastro-esophageal reflux disease without esophagitis J18.9 Pneumonia, unspecified organism Office Visit 08/12/2018 Family Allan J18.9 Pneumonia, 9:00a Medicine [place] CELIA Echevarria unspecified RD organism R68.2 Dry mouth, unspecified L30.9 Dermatitis, unspecified D50.9 Iron deficiency anemia, unspecified Assessments Date Code Description Provider 01/27/2019 K21.9 Gastro-esophageal reflux disease Swathi Lemus FNP without esophagitis 01/27/2019 I73.00 Raynaud's syndrome without gangrene Swathi Lemus FNP 01/27/2019 Z12.31 Encounter for screening mammogram for Swathi Lemus FNP malignant neoplasm of breast 01/27/2019 F43.21 Adjustment disorder with depressed mood Swathi Lemus FNP 01/20/2019 R07.89 Other chest pain Kaylen Bhakta M.D. 01/20/2019 R07.0 Pain in throat Kaylen Bhakta M.D. 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 01/20/2019 R91.8 Other nonspecific abnormal finding of Kaylen Bhakta M.D. 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 [place], DO 11/09/2018 K21.9 Gastro-esophageal reflux disease [place], DO without esophagitis 11/09/2018 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 [place], DO 10/27/2018 I73.00 Raynaud's syndrome without gangrene ClSwathi ricketts, [facility] 10/27/2018 F43.21 Adjustment disorder with depressed mood Swathi Lemus, [facility] 10/15/2018 I73.00 Raynaud's syndrome without gangrene ClSwathi ricketts, [facility] 10/15/2018 F43.21 Adjustment disorder with depressed mood ClSwathi ricketts, [facility] 10/06/2018 D50.9 Iron deficiency anemia, unspecified Lashaun Rios, TECHNICAL SALES SUPPORT SPECIALIST 10/06/2018 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 Lashaun Rios, TECHNICAL SALES SUPPORT SPECIALIST 10/05/2018 E61.1 Iron deficiency EnaLa, DO 10/05/2018 E61.1 Iron deficiency Oncology Nurse 10/05/2018 D50.9 Iron deficiency anemia, unspecified Ena La, DO 10/05/2018 D50.9 Iron deficiency anemia, unspecified Oncology Nurse 09/22/2018 E61.1 Iron deficiency Swathi Lemus, [facility] 09/22/2018 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 Swathi Lemus, [facility] 09/22/2018 S32.000A Wedge compression fracture of Swathi Lemus, [facility] unspecified lumbar vertebra, i 09/22/2018 I73.00 Raynaud's syndrome without gangrene Swathi Lemus, ENGINEERING CLERK 09/21/2018 E61.1 Iron deficiency Lashaun Rios, TECHNICAL SALES SUPPORT SPECIALIST 09/21/2018 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 Lashaun Rios, TECHNICAL SALES SUPPORT SPECIALIST 09/21/2018 R60.0 Localized edema Lashaun Rios, TECHNICAL SALES SUPPORT SPECIALIST 09/11/2018 E61.1 Iron deficiency [place], 09/11/2018 E61.1 Iron deficiency Oncology Nurse 09/11/2018 E50.9 Vitamin A deficiency, unspecified [place] DO 09/11/2018 E50.9 Vitamin A deficiency, unspecified Oncology Nurse 08/20/2018 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 Jeremias Lowry MD 08/20/2018 I73.00 Raynaud's syndrome without gangrene Jeremias Lowry MD 08/20/2018 J44.9 Chronic obstructive pulmonary disease, Jeremias Lowry MD unspecified 08/20/2018 K21.9 Gastro-esophageal reflux disease Jeremias Lowry MD without esophagitis 08/20/2018 J18.9 Pneumonia, unspecified organism Jeremias Lowry MD 08/12/2018 J18.9 Pneumonia, unspecified organism Swathi Lemus FNP 08/12/2018 R68.2 Dry mouth, unspecified ClSwathi ricketts FNP 08/12/2018 L30.9 Dermatitis, unspecified Clliliam, Swathi, ENGINEERING CLERK 08/12/2018 D50.9 Iron deficiency anemia, unspecified ClSwathi ricketts FNP 08/03/2018 J18.9 Pneumonia, unspecified organism Clark Christensen FNP 08/03/2018 M79.602 Pain in left arm Clark Christensen FNP 08/03/2018 W19.xxxA Unspecified fall, initial encounter Clark Christensen FNP 08/03/2018 J44.9 Chronic obstructive pulmonary disease, Clark Christensen FNP unspecified Plan of Treatment Future Appointment(s):04/26/2019 1:15 pm - Swathi Lemus FNP at [facility] RD03/24/2019 1:20 pm - Love Rizvi PA at Pulmonology Functional Status Functional Condition Comment Date Status Independent with all ADL's Active Glasses Active Complete lower and upper and lower dentures Active Mental Status Description No Information Available Referrals Refer to Reason for Referral Status Appt Date Jason Briones MD Scheduled 02/16/2019 [address] [place] [address] [phone] Jaron Bates MD [facility] Patient Notified 02/02/[address] [place] [address] [phone] Jason Briones MD 88 YOF with know GERD has had marked worsening - Sent please evalaute and treat [address] [place] [address] [phone] Kaylen Bhakta M.D. RUL opacity , new from 3 months ago. History Scheduled of MAC [address] [place] [address] [phone]
--- OUTSIDE RECORDS SUMMARY | 2019-02-28 10:04 | XMS REPORT | Continuity of Care Document ---
:1930 External Reference #:[id number] Author Name PeteLa swan, Address [address] [place] [address] Care Team Providers Name Role Phone Kaylen Bhakta M.D. - Infectious Care Team Information Advertising Clerk [phone] Disease Swathi Lemus NP - Nurse Care Team Information Advertising Clerk [phone] Practitioner Love Rizvi PA - Physician Care Team Information Advertising Clerk Customer Servicer Problems Active Problems Provider Date Chronic obstructive [...] fracture of lumbar spine Margaret Babb, PNP-BC, [employer]OR [employer], Onset: 01/02 Ibclc Note: L1 25% Renal failure syndrome Ny Olmstead MD Onset: 08/25/2008 Hearing loss Ny Olmstead MD Onset: 03/29/2005 Osteoporosis Ny Olmstead MD Onset: 03/29/2005 Giant cell arteritis Ny Olmstead MD Onset: 03/20/2004 Polymyalgia rheumatica Ny Olmstead MD Onset: 03/20/2004 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 of Julee Jacksonleida, MSN, Onset: 02/24 distal lower extremity [employer] Cerebral meningioma Ny Olmstead MD Onset: 11/24/2014 [...] Bhakta M.D. Onset: 11/03/2017 Lesion of lung Kyalen Bhakta M.D. Onset: 12/31/2017 Benign neoplasm of [...] QUIT Unknown IN 40'S Smoking Status Reviewed: 12/29/18 Patient is a former smoker 1 PPD X 10 YRS , QUIT IN 40'S Allergies, Adverse Reactions, Alerts Active Allergies Reaction Severity Comments Date Sulfa Drugs 07/09/2011 Budesonide 01/13/2013 Acular 12/16/2007 Penicillins 07/09/2011 Morphine 07/09/2011 Aspirin PUD 07/29/2011 Citalopram 06/06/2016 Hydroxyzine 07/16/2018 Medications Active Medications SIG Qnty Indications Ordering Date Provider Norvasc 1 by mouth every 90tabs I73.00 [place], 10/15/2018 5mg Tablets day * for Swathi Raynaud's syndrome [employer] Sertraline HCL Take 1/2 Tablet By 30tabs F43.21 [place], 10/15/2018 25mg Mouth Once Daily Swathi Tablets For 4 Days Then DOOR [employer] Increase To 1 Tablet Once Daily Calcitonin (Loami) one spray nasaly 3.700ml S32.000A [place], 09/22/2018 once a day Swathi 200Unit/Act Solution [employer] Spiriva Handihaler Inhale The cap Ny [place], 02/23/2017 Contents Of One 18mcg Capsules Capsule Via Handihaler Once Daily Maximum Daily Dose = 1 Simvastatin Take One Tablet By 90tabs [place], 04/04/2016 5mg Tablets Mouth AT Bedtime Medical Alert Device dx: polymyalgia Ny Ol[place], 02/23/2015 rheumatica; copd; at risk for falls Albuterol Sulfate 1 [...] Bates 12/25/2018 - 20mg Akila Smiley, [facility] Unknown Tablets DR Bernal one by mouth 30tabs I73.00 [place], 09/22/2018 - 2.5mg every day CELIA Echevarria 10/15/2018 Tablets Immunizations CPT Code Status Date Vaccine Lot # [id number] Given 07/18/2018 Shingrix Zoster Vaccine (HZV), Recombinant, Subunit, Adjuvante 81462 Given 02/26/2018 Influenza High Dose [id number] 05570 Given 02/05/2017 Influenza High Dose [id number] Q2038 Given 03/22/2016 Influenza Vaccine (Fluzone) Age 3 And Older 79009 Given 03/29/2015 Pneumococcal Conjugate Vaccine 13 Valent For [id number] Intramuscular Use Q2038 Given 02/22/2015 Influenza Vaccine (Fluzone) Age 3 And Older [id number] 10450 Given 09/18/2012 Tdap injection 83340 Given 07/29/2011 Zoster Vaccine Live Injection 06060 Given 04/13/2010 Pneumovax Injection 97314 Given 04/16/2004 Pneumovax Injection U-Td Given 10/31/1999 Td(Adult),Unspecified 68661 Given 11/03/1997 Pneumovax Injection Vital Signs Date Vital Result Comment 01/20/2019 2:36pm BP Systolic Sitting Left Arm 121 mmHg BP Diastolic Sitting Left Arm 61 mmHg Heart Rate 61 /min Height 61 inches 5'1" Weight 131.00 lb BMI (Body Mass Index) 24.7 kg/m2 BSA (Body Surface Area) 1.58 m2 [place] body weight in kilograms 48 kg O2 % BldC Oximetry 96 % ra 12/29/2018 1:24pm BP Systolic Sitting Right Arm 135 mmHg BP Diastolic Sitting Right Arm 54 mmHg Heart Rate 70 /min Respiratory Rate 19 /min Height 61 inches 5'1" Weight 131.00 lb BMI (Body Mass Index) 24.7 kg/m2 BSA (Body Surface Area) 1.58 m2 [place] body weight in kilograms 48 kg Results Test Date Facility Test Result H/L Range Note Comprehensive 01/20/2019 [facility] Glucose 97 mg/dL Normal 74-106 1 Metabolic Panel [address] [place] [address] [phone] BUN 25 mg/dL High 7-18 Creatinine 1.1 [...] 91 U/L Normal 45-117 Laboratory test 01/20/2019 [facility] Troponin-I < 0.015 [address] ng/[place] [address] [phone] CBC W/Automated 01/20/2019 [facility] White Blood 5.4 K/uL Normal 3.1-[address] Count 0.7 [place] [address] [phone] Red Blood Count 4.46 M/uL Normal 3.90-5.40 [...] 40.4-72.8 Lymph % 24.7 % Normal 20.0-42.0 [place] % 6.3 % Normal 4.3-13.2 Eo% 2.4 % Normal 0.0-6.6 Bas% 0.2 % Normal 0.0-1.1 Immature Grans 0.2 % Normal 0.0-5.0 NRBC % 0.0 /100WBC < 10/ 100 WBC Neut# 3.57 K/uL Normal 1.8-7.0 Lymph # 1.33 K/uL Normal 1.0-4.0 [place] # 0.34 K/uL Normal 0.3-0.9 Eos # 0.13 K/uL Normal 0.0-0.5 Baso # 0.01 K/uL Normal 0.0-0.1 Immature Grans Absolute 0.01 K/uL NRBC # 0.00 K/uL Laboratory test finding 01/20/2019 [facility] Slide Review <pending> [address] [place] [address] [phone] Path Review: <pending> CBC W/Automated 12/25/2018 [facility] White Blood 7.0 K/uL Normal 3.1-10.[address] [place] [address] [phone] Red Blood Count 4.76 M/uL Normal 3.90-5.40 [...] 40.4-72.8 Lymph % 22.1 % Normal 20.0-42.0 [place] % 6.7 % Normal 4.3-13.2 Eo% 2.2 % Normal 0.0-6.6 Bas% 0.3 % Normal 0.0-1.1 Immature Grans 0.4 % Normal 0.0-5.0 NRBC % 0.0 /100WBC < 10/ 100 WBC Neut# 4.76 K/uL Normal 1.8-7.0 Lymph # 1.54 K/uL Normal 1.0-4.0 [place] # 0.47 K/uL Normal 0.3-0.9 Eos # 0.15 K/uL Normal 0.0-0.5 Baso # 0.02 K/uL Normal 0.0-0.1 Immature Grans Absolute 0.03 K/uL NRBC # 0.00 K/uL Slide Review 12/25/2018 [facility] Slide Review (SEE NOTE) [address] [place] [address] [phone] [facility] 11/09/2018 [facility] Glucose 88 mg/dL Normal 74-10 6 Metabolic Panel [address] [facility] [address] [place] [address] [phone] BUN 18 mg/dL Normal 7-18 Creatinine 0.9 [...] 98 U/L Normal 45-117 CBC W/Automated 11/09/2018 [facility] White Blood 5.7 K/uL Normal 3.1-10.[address] [place] [address] [phone] Red Blood Count 4.61 M/uL Normal 3.90-5.40 [...] 40.4-72.8 Lymph % 26.1 % Normal 20.0-42.0 [place] % 5.6 % Normal 4.3-13.2 Eo% 2.8 % Normal 0.0-6.6 Bas% 0.3 % Normal 0.0-1.1 Immature Grans 0.3 % Normal 0.0-5.0 NRBC % 0.0 /100WBC < 10/ 100 WBC Neut# 3.72 K/uL Normal 1.8-7.0 Lymph # 1.50 K/uL Normal 1.0-4.0 [place] # 0.32 K/uL Normal 0.3-0.9 Eos # 0.16 K/uL Normal 0.0-0.5 Baso # 0.02 K/uL Normal 0.0-0.1 Immature Grans Absolute 0.02 K/uL NRBC # 0.00 K/uL Laboratory test 11/09/2018 [facility] Vitamin 36.1 30.0-100.0 [address] D,25-Hydroxy ng/[place] [address] [phone] Laboratory test 11/09/2018 [facility] LDH 172 U/L Normal 84-246 finding [address] [place] [address] [phone] Reticulocyte 11/09/2018 [facility] Retic 23.5 pg Low 27.9-37.0 Count,Automated [address] [place] [address] [phone] Retic % 0.8 % Normal 0.5-1.8 Immature Retic Fraction 10.8 % Normal 2.9-15.5 Hemoglobinopathy Profile 11/09/2018 [facility] Hgb A 94.6 % Low 96.4-98.8 [address] [place], [place] [address] [phone] Hgb, 0.8 % 0.0-2.0 Hgb S 0.0 % 0.0 Hgb C 0.0 % 0.0 Hgb A2 4.6 % High 1.8-3.2 Hgb Variant 0 % 0.0 Interpretation: (SEE NOTE) 10 Vitamin B12 And 11/09/2018 [facility] Vitamin B12 506 pg/mL Normal 193-986 Folate [address] [place] [address] [phone] Folic Acid 14.8 ng/mL Normal 3.1-17.5 Laboratory test 11/09/2018 [facility] Ferritin 37 ng/mL Normal 8-252 finding [address] [place], [place] [address] [phone] Iron-Tibc-%Sat 11/09/2018 [facility] Serum Iron 51 g/dL Normal 50-170 [address] [place] [address] [phone] Total Iron Binding Capacity 357 g/dL Normal 250-450 Transferrin %Saturation 14 % Normal 12-57 Urine Dipstick 10/15/2018 [facility] Ua Color Yellow Yellow Ua Clarity Cloudy Clear Ua Leuko neg Negative Ua Nitrite neg Negative Ua Urobilinogen 3.5 High 0.2 - 1.0 E.U./dL Ua Protein trace Negative Ua PH 7.0 6.5-7.5 Ua Blood neg Negative Ua Specific [place] 1.015 1.010-1.030 Ua Ketones neg Negative Ua Bilirubin neg Negative Ua Glucose neg Negative CBC W/Automated 10/05/2018 [facility] White 7.6 K/uL Normal 3.1-10.7 11 Diff [address] [facility] [place] [address] Count [phone] Red Blood Count 3.83 M/uL Low 3.90-5.40 [...] 40.4-72.8 Lymph % 17.4 % Low 20.0-42.0 [place] % 6.4 % Normal 4.3-13.2 Eo% 2.5 % Normal 0.0-6.6 Bas% 0.3 % Normal 0.0-1.1 Immature Grans 0.4 % Normal 0.0-5.0 NRBC % 0.0 /100WBC < 10/ 100 WBC Neut# 5.57 K/uL Normal 1.8-7.0 Lymph # 1.33 K/uL Normal 1.0-4.0 [place] # 0.49 K/uL Normal 0.3-0.9 Eos # 0.19 K/uL Normal 0.0-0.5 Baso # 0.02 K/uL Normal 0.0-0.1 Immature Grans Absolute 0.03 K/uL NRBC # 0.00 K/uL Laboratory test 10/05/2018 [facility] Ferritin 185 ng/mL Normal 8-252 finding [address] [place] [address] [phone] Iron-Tibc-%Sat 10/05/2018 [facility] Serum Iron 45 g/dL Low 50-170 [address] [place] [address] [phone] Total Iron Binding Capacity 325 g/dL Normal 250-450 Transferrin %Saturation 14 % Normal 12-57 Comprehensive 10/05/2018 [facility] Glucose 79 mg/dL Normal 74-106 Metabolic Panel [address] [place] [address] [phone] BUN 17 mg/dL Normal 7-18 Creatinine 0.8 [...] U/L Normal 45-117 Vitamin B12 And 10/05/2018 [facility] Vitamin B12 442 pg/mL Normal 193-986 Folate [address] [place] [address] [phone] Folic Acid 13.1 ng/mL Normal 3.1-17.5 Occult 09/23/2018 [facility] Fecal Negative (Negative) 14, 15 Blood,Triple [address] [facility] [place] [address] Blood [phone] Fecal Occult Blood #2 Negative (Negative) 16 Fecal Occult Blood #3 Negative (Negative) 17 CBC W/Automated 09/11/2018 [facility] White 7.1 K/uL Normal 3.1-10.7 18 Diff [address] [facility] [place] [address] Count [phone] Red Blood Count 3.64 M/uL Low 3.90-5.40 [...] 40.4-72.8 Lymph % 20.8 % Normal 20.0-42.0 [place] % 7.5 % Normal 4.3-13.2 Eo% 2.7 % Normal 0.0-6.6 Bas% 0.3 % Normal 0.0-1.1 Immature Grans 0.3 % Normal 0.0-5.0 NRBC % 0.0 /100WBC < 10/ 100 WBC Neut# 4.84 K/uL Normal 1.8-7.0 Lymph # 1.47 K/uL Normal 1.0-4.0 [place] # 0.53 K/uL Normal 0.3-0.9 Eos # 0.19 K/uL Normal 0.0-0.5 Baso # 0.02 K/uL Normal 0.0-0.1 Immature Grans Absolute 0.02 K/uL NRBC # 0.00 K/uL Laboratory test 09/11/2018 [facility] Ferritin 21 ng/mL Normal 8-252 finding [address] [place], [place] [address] [phone] Laboratory test 09/11/2018 [facility] Vitamin 39.8 30.0-100. 19 finding [address] D,25-Hydroxy ng/mL 0 [place], [place] [id number] [phone] Vitamin B12 And 09/11/2018 [facility] Vitamin B12 468 pg/mL Normal 193-986 Folate [address] [place] [address] [phone] Folic Acid > 20.0 ng/mL High 3.1-17.5 Comprehensive 09/11/2018 [facility] Glucose 76 mg/dL Normal 74-106 Metabolic Panel [address] [place], [place] [address] [phone] BUN 25 mg/dL High 7-18 Creatinine 0.9 [...] Phosphatase 99 U/L Normal 45-117 Iron-Tibc-%Sat 09/11/2018 [facility] Serum Iron 30 g/dL Low 50-170 [address] [place], [place] [address] [phone] Total Iron Binding Capacity 315 g/dL Normal 250-450 Transferrin %Saturation 10 % Low 12-57 Laboratory test finding 08/12/2018 [facility] Fit Hemoccult negative Urine Dipstick 08/12/2018 [facility] Ua Leuko - Negative Ua Nitrite - Negative Ua Urobilinogen .2 0.2 - 1.0 E.U./dL Ua Protein - Negative Ua PH 5 Low 6.5-7.5 Ua Blood - Negative Ua Specific [place] 1.025 1.010-1.030 Ua Ketones - Negative Ua Bilirubin - Negative Ua Glucose - Negative Comprehensive 08/03/2018 [facility] Glucose 99 mg/dL Normal 74-106 22 Metabolic Panel [address] [place] [address] [phone] BUN 23 mg/dL High 7-18 Creatinine 1.0 [...] 82 U/L Normal 45-117 Laboratory test 08/03/2018 [facility] Troponin-I < 0.015 [address] ng/[place] [address] [phone] CBC W/Automated 08/03/2018 [facility] White Blood 6.0 K/uL Normal 3.1-[address] Count 0.7 [place] [address] [phone] Red Blood Count 4.30 M/uL Normal 3.90-5.40 [...] 40.4-72.8 Lymph % 18.9 % Low 20.0-42.0 [place] % 7.5 % Normal 4.3-13.2 Eo% 2.5 % Normal 0.0-6.6 Bas% 0.3 % Normal 0.0-1.1 Neut# 4.22 K/uL Normal 1.8-7.0 Lymph # 1.13 K/uL Normal 1.0-4.0 [place] # 0.45 K/uL Normal 0.3-0.9 Eos # 0.15 K/uL Normal 0.0-0.5 Baso # 0.02 K/uL Normal 0.0-0.1 Slide Review 08/03/2018 [facility] Slide Review . [address] [place] [address] [phone] RBC Morphology Only 08/03/2018 [facility] Polychromasia 0-1+ [address] [place] [address] [phone] Hypochromia 0-1+ Poikilocytosis 1+ Anisocytosis 1+ Microcytosis [...] D deficiency has been defined by the [place] of [employer] and an Endocrine Society practice guideline as a level of serum 25-OH vitamin D less than 20 ng/mL (1,2). The Endocrine Society went on to further define vitamin D insufficiency as a level between 21 and 29 ng/mL (2). 1. IOM ([place] of [employer]). 2010. Dietary reference intakes for calcium and D. [place]: The National [employer]. 2. Josef COCHRAN, Bora GUNN, Danya TAVARES, et al. Evaluation, treatment, and prevention of vitamin D deficiency: an Endocrine Society clinical practice guideline. JCEM. 2010; 96(5):1911-30. 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 Suggest hematologic and clinical correlation. Performed at: RN - [facility] [address] [id number] [employer] Chief: Doris Johnston MD, Phone: [phone] E61.1 D50.9 12 Note: Persistent reduction [...] D deficiency has been defined by the [place] [employer] and an Endocrine Society practice guideline as a level of serum 25-OH vitamin D less than 20 ng/mL (1,2). The Endocrine Society went on to further define vitamin D insufficiency as a level between 21 and 29 ng/mL (2). 1. IOM ([place] [employer]). 2010. Dietary reference intakes for calcium and D. [place]: The National Academies Press. 2. Josef COCHRAN, Bora GUNN, Danya TAVARES, et al. Evaluation, treatment, and prevention of vitamin D deficiency: an Endocrine Society clinical practice guideline. JCEM. 2010; 96(7):1911-30. Performed at: RN - [facility] [address] [id number] [employer] Crew Chief: Doris Johnston MD, Phone: [phone] Note: Persistent reduction for 3 months [...] NORMAL Procedures Date Code Description Status 12/25/2018 10374 EKG-Tracing And Report Completed 02/27/2018 [id number] Mammogram Completed 12/13/2015 [id number] Mammogram Completed 06/02/2015 [id number] Bone Mineral Density Test Completed 11/24/2014 [id number] Mammogram Completed 06/02/2011 [id number] Colonoscopy Completed Medical Devices Description No Information Available Encounters Type Date Location Provider Dx Diagnosis Office Visit 01/20/2019 Physical Medicine & Mezu, Kaylen, R07.89 Other chest pain 2:30p Infectious Disease M.D. 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, bronchus and lung J44.9 Chronic obstructive pulmonary disease, unspecified R07.89 Other chest pain Office Visit 10/27/2018 Family Lemus I73.00 Raynaud's 1:45[facility] syndrome RD without gangrene F43.21 Adjustment disorder with depressed mood Office Visit 10/15/2018 Family Lemus I73.00 Raynaud's 1:00p [facility] syndrome RD without gangrene F43.21 Adjustment disorder with depressed mood Office Visit 10/06/2018 1:00p Infusion Center [place], D50.9 Iron deficiency Lashaun Chung, OPERATIONAL RISK CONSULTANT anemia, unspecified 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 Office Visit 09/22/2018 Family Lemus, E61.1 Iron deficiency 1:30p Medicine [facility], DOOR PULLER RD 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 S32.000A Wedge compression fracture of unsp lumbar vertebra, init I73.00 Raynaud's syndrome without gangrene Office Visit 09/21/2018 2:30p Oncology Office Lashaun Rios E61.1 Iron deficiency B., OPERATIONAL RISK CONSULTANT 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 R60.0 Localized edema Office Visit 08/20/2018 1:45p Pulmonology Jeremias Lowry, A31.0 Pulmonary MD mycobacterial infection I73.00 Raynaud's syndrome without gangrene J44.9 Chronic obstructive pulmonary disease, unspecified K21.9 Gastro-esophageal reflux disease without esophagitis J18.9 Pneumonia, unspecified organism Office Visit 08/12/2018 Family Lemus J18.9 Pneumonia, 9:00a Medicine [facility] DOOR PULLER unspecified RD organism R68.2 Dry mouth, unspecified L30.9 Dermatitis, unspecified D50.9 Iron deficiency anemia, unspecified Office Visit 07/30/2018 2:15p Family Medicine Edouard Robbins, L98.8 Oth disrd of the [facility] MASON CEBALLOS skin and subcutaneous tissue Assessments Date Code Description Provider 01/20/2019 R07.89 Other chest pain Kaylen Bhakta [...] PA 11/09/2018 D64.9 Anemia, unspecified [place], 11/09/2018 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 [place], 11/09/2018 K21.9 Gastro-esophageal reflux disease [place] DO without esophagitis 11/09/2018 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 [place] DO 10/27/2018 I73.00 Raynaud's syndrome without gangrene Swathi Lemus FNP 10/27/2018 F43.21 Adjustment disorder with depressed mood Swathi Lemus FNP 10/15/2018 I73.00 Raynaud's syndrome without gangrene Swathi Lemus, [facility] 10/15/2018 F43.21 Adjustment disorder with depressed mood Swathi Lemus, [facility] 10/06/2018 D50.9 Iron deficiency anemia, unspecified Lashaun Rios, OPERATIONAL RISK CONSULTANT 10/06/2018 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 Lashaun Rios, OPERATIONAL RISK CONSULTANT 10/05/2018 E61.1 Iron deficiency [place], DO 10/05/2018 E61.1 Iron deficiency Oncology Nurse 10/05/2018 D50.9 Iron deficiency anemia, unspecified aL Sutherland, DO 10/05/2018 D50.9 Iron deficiency anemia, unspecified Oncology Nurse 09/22/2018 E61.1 Iron deficiency Swathi Lemus, [facility] 09/22/2018 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 [facility], [facility] 09/22/2018 S32.000A Wedge compression fracture of [facility] unspecified lumbar vertebra, i 09/22/2018 I73.00 Raynaud's syndrome without gangrene Swathi Lemus, [facility] 09/21/2018 E61.1 Iron deficiency Lashaun Rios, OPERATIONAL RISK CONSULTANT 09/21/2018 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 Lashaun Rios, OPERATIONAL RISK CONSULTANT 09/21/2018 R60.0 Localized edema Lashaun Rios, OPERATIONAL RISK CONSULTANT 09/11/2018 E61.1 Iron deficiency [place], DO [...] MD 08/12/2018 J18.9 Pneumonia, unspecified organism Clune, Swathi, [facility] 08/12/2018 R68.2 Dry mouth, unspecified Clune, Swathi, [facility] 08/12/2018 L30.9 Dermatitis, unspecified Clune, Swathi, [facility] 08/12/2018 D50.9 Iron deficiency anemia, unspecified Clune, Swathi, [facility] 08/03/2018 J18.9 Pneumonia, unspecified organism Clark Christensen, [facility] 08/03/2018 M79.602 Pain in left arm Clark Christensen [facility] 08/03/2018 W19.xxxA Unspecified fall, initial encounter Clark Christensen [facility] 08/03/2018 J44.9 Chronic obstructive pulmonary disease, Clark Christensen FNP unspecified 07/30/2018 L98.8 Other specified disorders of the skin Edouard Robbins MD and subcutaneous tissu Plan of Treatment Future Appointment(s):03/24/2019 1:20 pm - Love Rizvi PA at Pulmonology Functional Status Functional Condition Comment Date Status Independent with all ADL's Active Glasses Active Complete lower and upper and lower dentures Active Mental Status Description No Information Available Referrals Refer to Reason for Referral Status Appt Date Jason Briones MD Created [address] [place] [address] [phone] Jaron Bates MD [facility] Patient Notified 02/02/[address] [place] [address] [phone] Jason Briones MD 88 YOF with know GERD has had marked worsening - Sent please evalaute and treat [address] [place], [place] [id number] [phone] Kaylen Bhakta M.D. RUL opacity , new from 3 months ago. History Scheduled of MAC [address] [place] [address] [phone]
--- OUTSIDE RECORDS SUMMARY | 2019-02-28 10:04 | XMS REPORT | Continuity of Care Document ---
:1930 External Reference #:[id number] Author Name Love Rizvi PA (transmitted by agent of provider Jeremias Lowry) Address [address] [place] [address] Care Team Providers Name Role Phone Kaylen Bhakta M.D. - Infectious Care Team Information Senior Production Supervisor Disease Swathi Lemus NP - Nurse Care Team Information Senior Production Supervisor Practitioner Love Rizvi PA - Physician Care Team Information Senior Production Supervisor Sleeve Turner Problems Active Problems Provider Date Chronic obstructive [...] fracture of lumbar spine Margaret Babb, PNP-BC, SOUND TRUCK OPERATOR, Onset: 01/02 Ibclc Note: L1 25% Renal failure syndrome Ny Olmstead MD Onset: 08/25/2008 Hearing loss Ny Olmstead MD Onset: 03/29/2005 Osteoporosis Ny Olmstead MD Onset: 03/29/2005 Giant cell arteritis Ny Olmstead MD Onset: 03/20/2004 Polymyalgia rheumatica Ny Olmstead MD Onset: 03/20/2004 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 of Jackson, Juleebraden Ulloa, MSN, Onset: 02/24 distal lower extremity SOUND TRUCK OPERATOR Cerebral meningioma Ny Olmstead MD Onset: [...] depressed Swathi Lemus FNP Onset: 2018 mood Chest pain Kaylen Bhakta M.D. Onset: 01/20/2019 [...] Norvasc 1 by mouth every 90tabs I73.00 [place], 10/15/2018 5mg Tablets day * for Swathi Raynaud's syndrome SOUND TRUCK OPERATOR Sertraline HCL Take 1/2 Tablet By 30tabs F43.21 [place], 10/15/2018 25mg Mouth Once Daily Swathi Tablets For 4 Days Then SOUND TRUCK OPERATOR Increase To 1 Tablet Once Daily Calcitonin ([place]) one spray nasaly 3.700ml S32.000A [place], 09/22/2018 once a day Swathi 200Unit/Act Solution SOUND TRUCK OPERATOR Spiriva Handihaler Inhale The caps Ny Olmstead, [...] Jaron Bates 12/25/2018 - 20mg Akila Smiley, [facility] Unknown Tablets DR Bernal one by mouth 30tabs I73.00 [place], 09/22/2018 - 2.5mg every day CELIA Echevarria 10/15/2018 Tablets Immunizations CPT Code Status Date Vaccine Lot # [id number] Given 07/18/2018 Shingrix Zoster Vaccine (HZV), Recombinant, Subunit, Adjuvante 75324 Given 02/26/2018 Influenza High Dose [id number] 53336 Given 02/05/2017 Influenza High Dose [id number] Q2038 Given 03/22/2016 Influenza Vaccine (Fluzone) Age 3 And Older 37268 Given 03/29/2015 Pneumococcal Conjugate Vaccine 13 Valent For [id number] Intramuscular Use Q2038 Given 02/22/2015 Influenza Vaccine (Fluzone) Age 3 And Older [id number] 05249 Given 09/18/2012 Tdap injection 56597 Given 07/29/2011 Zoster Vaccine Live Injection 34662 Given 04/13/2010 Pneumovax Injection 28445 Given 04/16/2004 Pneumovax Injection U-Td Given 10/31/1999 Td(Adult),Unspecified 60236 Given 11/03/1997 Pneumovax Injection Vital Signs Date Vital Result Comment 01/20/2019 2:36pm BP Systolic Sitting Left Arm 121 mmHg BP Diastolic Sitting Left Arm 61 mmHg Heart Rate 61 /min Height 61 inches 5'1" Weight 131.00 lb BMI (Body Mass Index) 24.7 kg/m2 BSA (Body Surface Area) 1.58 m2 Hardy body weight in kilograms 48 kg O2 % BldC Oximetry 96 % ra 12/29/2018 1:24pm BP Systolic Sitting Right Arm 135 mmHg BP Diastolic Sitting Right Arm 54 mmHg Heart Rate 70 /min Respiratory Rate 19 /min Height 61 inches 5'1" Weight 131.00 lb BMI (Body Mass Index) 24.7 kg/m2 BSA (Body Surface Area) 1.58 m2 Hardy body weight in kilograms 48 kg Results Test Date Facility Test Result H/L Range Note Comprehensive 01/20/2019 [facility] Glucose 97 mg/dL Normal 74-106 1 Metabolic Panel [address] [place] [address] [phone] BUN 25 mg/dL High 7-18 Creatinine 1.1 [...] 91 U/L Normal 45-117 Laboratory test 01/20/2019 [facility] Troponin-I < 0.015 [address] ng/[place] [address] [phone] CBC W/Automated 01/20/2019 [facility] White Blood 5.4 K/uL Normal 3.1-[address] Count 0.7 [place] [address] [phone] Red Blood Count 4.46 M/uL Normal 3.90-5.40 [...] 40.4-72.8 Lymph % 24.7 % Normal 20.0-42.0 Geary % 6.3 % Normal 4.3-13.2 Eo% 2.4 % Normal 0.0-6.6 Bas% 0.2 % Normal 0.0-1.1 Immature Grans 0.2 % Normal 0.0-5.0 NRBC % 0.0 /100WBC < 10/ 100 WBC Neut# 3.57 K/uL Normal 1.8-7.0 Lymph # 1.33 K/uL Normal 1.0-4.0 Geary # 0.34 K/uL Normal 0.3-0.9 Eos # 0.13 K/uL Normal 0.0-0.5 Baso # 0.01 K/uL Normal 0.0-0.1 Immature Grans Absolute 0.01 K/uL NRBC # 0.00 K/uL Laboratory test finding 01/20/2019 [facility] Slide Review <pending> [address] [place] [address] [phone] Path Review: <pending> CBC W/Automated 12/25/2018 [facility] White Blood 7.0 K/uL Normal 3.1-10.[address] [place] [address] [phone] Red Blood Count 4.76 M/uL Normal 3.90-5.40 [...] 40.4-72.8 Lymph % 22.1 % Normal 20.0-42.0 Geary % 6.7 % Normal 4.3-13.2 Eo% 2.2 % Normal 0.0-6.6 Bas% 0.3 % Normal 0.0-1.1 Immature Grans 0.4 % Normal 0.0-5.0 NRBC % 0.0 /100WBC < 10/ 100 WBC Neut# 4.76 K/uL Normal 1.8-7.0 Lymph # 1.54 K/uL Normal 1.0-4.0 Geary # 0.47 K/uL Normal 0.3-0.9 Eos # 0.15 K/uL Normal 0.0-0.5 Baso # 0.02 K/uL Normal 0.0-0.1 Immature Grans Absolute 0.03 K/uL NRBC # 0.00 K/uL Slide Review 12/25/2018 [facility] Slide Review (SEE NOTE) [address] [place], [place] [id number] [phone] [facility] 11/09/2018 [facility] Glucose 88 mg/dL Normal 74-10 6 Metabolic Panel [address] [facility] [address] [place] [address] [phone] BUN 18 mg/dL Normal 7-18 Creatinine 0.9 [...] 98 U/L Normal 45-117 CBC W/Automated 11/09/2018 [facility] White Blood 5.7 K/uL Normal 3.1-10.[address] [place] [address] [phone] Red Blood Count 4.61 M/uL Normal 3.90-5.40 [...] 40.4-72.8 Lymph % 26.1 % Normal 20.0-42.0 Geary % 5.6 % Normal 4.3-13.2 Eo% 2.8 % Normal 0.0-6.6 Bas% 0.3 % Normal 0.0-1.1 Immature Grans 0.3 % Normal 0.0-5.0 NRBC % 0.0 /100WBC < 10/ 100 WBC Neut# 3.72 K/uL Normal 1.8-7.0 Lymph # 1.50 K/uL Normal 1.0-4.0 Geary # 0.32 K/uL Normal 0.3-0.9 Eos # 0.16 K/uL Normal 0.0-0.5 Baso # 0.02 K/uL Normal 0.0-0.1 Immature Grans Absolute 0.02 K/uL NRBC # 0.00 K/uL Laboratory test 11/09/2018 [facility] Vitamin 36.1 30.0-100.0 [address] D,25-Hydroxy ng/[place] [address] [phone] Laboratory test 11/09/2018 [facility] LDH 172 U/L Normal 84-[address] [place] [address] [phone] Reticulocyte 11/09/2018 [facility] Retic 23.5 pg Low 27.9-37.0 Count,Automated [address] [facility] Hemoglobin [place], [place] [address] [phone] Retic % 0.8 % Normal 0.5-1.8 Immature Retic Fraction 10.8 % Normal 2.9-15.5 Hemoglobinopathy Profile 11/09/2018 [facility] Hgb A 94.6 % Low 96.4-98.8 [address] [place], [place] [address] [phone] Hgb, 0.8 % 0.0-2.0 Hgb S 0.0 % 0.0 Hgb C 0.0 % 0.0 Hgb A2 4.6 % High 1.8-3.2 Hgb Variant 0 % 0.0 Interpretation: (SEE NOTE) 10 Vitamin B12 And 11/09/2018 [facility] Vitamin B12 506 pg/mL Normal 193-986 Folate [address] [place], [place] [address] [phone] Folic Acid 14.8 ng/mL Normal 3.1-17.5 Laboratory test 11/09/2018 [facility] Ferritin 37 ng/mL Normal 8-252 finding [address] [place], [place] [address] [phone] Iron-Tibc-%Sat 11/09/2018 [facility] Serum Iron 51 g/dL Normal 50-170 [address] [place], [place] [address] [phone] Total Iron Binding Capacity 357 g/dL Normal 250-450 Transferrin %Saturation 14 % Normal 12-57 Urine Dipstick 10/15/2018 [facility] Ua Color Yellow Yellow Ua Clarity Cloudy Clear Ua Leuko neg Negative Ua Nitrite neg Negative Ua Urobilinogen 3.5 High 0.2 - 1.0 E.U./dL Ua Protein trace Negative Ua PH 7.0 6.5-7.5 Ua Blood neg Negative Ua Specific [place] 1.015 1.010-1.030 Ua Ketones neg Negative Ua Bilirubin neg Negative Ua Glucose neg Negative CBC W/Automated 10/05/2018 [facility] White 7.6 K/uL Normal 3.1-10.7 11 Diff [address] [facility] [place] [address] Count [phone] Red Blood Count 3.83 M/uL Low 3.90-5.40 [...] 40.4-72.8 Lymph % 17.4 % Low 20.0-42.0 Geary % 6.4 % Normal 4.3-13.2 Eo% 2.5 % Normal 0.0-6.6 Bas% 0.3 % Normal 0.0-1.1 Immature Grans 0.4 % Normal 0.0-5.0 NRBC % 0.0 /100WBC < 10/ 100 WBC Neut# 5.57 K/uL Normal 1.8-7.0 Lymph # 1.33 K/uL Normal 1.0-4.0 Geary # 0.49 K/uL Normal 0.3-0.9 Eos # 0.19 K/uL Normal 0.0-0.5 Baso # 0.02 K/uL Normal 0.0-0.1 Immature Grans Absolute 0.03 K/uL NRBC # 0.00 K/uL Laboratory test 10/05/2018 [facility] Ferritin 185 ng/mL Normal 8-252 finding [address] [place] [address] [phone] Iron-Tibc-%Sat 10/05/2018 [facility] Serum Iron 45 g/dL Low 50-170 [address] [place] [address] [phone] Total Iron Binding Capacity 325 g/dL Normal 250-450 Transferrin %Saturation 14 % Normal 12-57 Comprehensive 10/05/2018 [facility] Glucose 79 mg/dL Normal 74-106 Metabolic Panel [address] [place] [address] [phone] BUN 17 mg/dL Normal 7-18 Creatinine 0.8 [...] U/L Normal 45-117 Vitamin B12 And 10/05/2018 [facility] Vitamin B12 442 pg/mL Normal 193-986 Folate [address] [place] [address] [phone] Folic Acid 13.1 ng/mL Normal 3.1-17.5 Occult 09/23/2018 [facility] Fecal Negative (Negative) 14, 15 Blood,Triple [address] [facility] [place] [address] Blood [phone] Fecal Occult Blood #2 Negative (Negative) 16 Fecal Occult Blood #3 Negative (Negative) 17 CBC W/Automated 09/11/2018 [facility] White 7.1 K/uL Normal 3.1-10.7 18 Diff [address] [facility] [place] [address] Count [phone] Red Blood Count 3.64 M/uL Low 3.90-5.40 [...] 40.4-72.8 Lymph % 20.8 % Normal 20.0-42.0 Geary % 7.5 % Normal 4.3-13.2 Eo% 2.7 % Normal 0.0-6.6 Bas% 0.3 % Normal 0.0-1.1 Immature Grans 0.3 % Normal 0.0-5.0 NRBC % 0.0 /100WBC < 10/ 100 WBC Neut# 4.84 K/uL Normal 1.8-7.0 Lymph # 1.47 K/uL Normal 1.0-4.0 Geary # 0.53 K/uL Normal 0.3-0.9 Eos # 0.19 K/uL Normal 0.0-0.5 Baso # 0.02 K/uL Normal 0.0-0.1 Immature Grans Absolute 0.02 K/uL NRBC # 0.00 K/uL Laboratory test 09/11/2018 [facility] Ferritin 21 ng/mL Normal 8-252 finding [address] [place], [place] [address] [phone] Laboratory test 09/11/2018 [facility] Vitamin 39.8 30.0-100. 19 finding [address] [facility] D,25-Hydroxy ng/mL 0 [place], [place] [address] [phone] Vitamin B12 And 09/11/2018 [facility] Vitamin B12 468 pg/mL Normal 193-986 Folate [address] [place], [place] [address] [phone] Folic Acid > 20.0 ng/mL High 3.1-17.5 Comprehensive 09/11/2018 [facility] Glucose 76 mg/dL Normal 74-106 Metabolic Panel [address] [place], [place] [address] [phone] BUN 25 mg/dL High 7-18 Creatinine 0.9 [...] Phosphatase 99 U/L Normal 45-117 Iron-Tibc-%Sat 09/11/2018 [facility] Serum Iron 30 g/dL Low 50-170 [address] [place], [place] [address] [phone] Total Iron Binding Capacity 315 g/dL Normal 250-450 Transferrin %Saturation 10 % Low 12-57 Laboratory test finding 08/12/2018 [facility] Fit Hemoccult negative Urine Dipstick 08/12/2018 [facility] Ua Leuko - Negative Ua Nitrite - Negative Ua Urobilinogen .2 0.2 - 1.0 E.U./dL Ua Protein - Negative Ua PH 5 Low 6.5-7.5 Ua Blood - Negative Ua Specific [place] 1.025 1.010-1.030 Ua Ketones - Negative Ua Bilirubin - Negative Ua Glucose - Negative Comprehensive 08/03/2018 [facility] Glucose 99 mg/dL Normal 74-106 22 Metabolic Panel [address] [place] [address] [phone] BUN 23 mg/dL High 7-18 Creatinine 1.0 [...] 82 U/L Normal 45-117 Laboratory test 08/03/2018 [facility] Troponin-I < 0.015 [address] ng/[place] [address] [phone] CBC W/Automated 08/03/2018 [facility] White Blood 6.0 K/uL Normal 3.1-[address] Count 0.7 [place] [address] [phone] Red Blood Count 4.30 M/uL Normal 3.90-5.40 [...] 40.4-72.8 Lymph % 18.9 % Low 20.0-42.0 Geary % 7.5 % Normal 4.3-13.2 Eo% 2.5 % Normal 0.0-6.6 Bas% 0.3 % Normal 0.0-1.1 Neut# 4.22 K/uL Normal 1.8-7.0 Lymph # 1.13 K/uL Normal 1.0-4.0 Geary # 0.45 K/uL Normal 0.3-0.9 Eos # 0.15 K/uL Normal 0.0-0.5 Baso # 0.02 K/uL Normal 0.0-0.1 Slide Review 08/03/2018 [facility] Slide Review . [address] [place] [address] [phone] RBC Morphology Only 08/03/2018 [facility] Polychromasia 0-1+ [address] [place] [address] [phone] Hypochromia 0-1+ Poikilocytosis 1+ Anisocytosis 1+ Microcytosis [...] D deficiency has been defined by the [place] of Medicine and an Endocrine Society practice guideline as a level of serum 25-OH vitamin D less than 20 ng/mL (1,2). The Endocrine Society went on to further define vitamin D insufficiency as a level between 21 and 29 ng/mL (2). 1. IOM ([place] of Medicine). 2010. Dietary reference intakes for calcium and D. [place]: The National AcademHome Comfort Zones Press. 2. Bora Deluca, Danya TAVARES, et al. Evaluation, treatment, and prevention of vitamin D deficiency: an Endocrine Society clinical practice guideline. JCEM. 2010; 96(7):1911-30. 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 Suggest hematologic and clinical correlation. Performed at: RN - [facility] [address] [id number] Coat Finisher: Doris Johnston MD, Phone: [phone] E61.1 D50.9 12 Note: Persistent reduction [...] D deficiency has been defined by the [place] of Medicine and an Endocrine Society practice guideline as a level of serum 25-OH vitamin D less than 20 ng/mL (1,2). The Endocrine Society went on to further define vitamin D insufficiency as a level between 21 and 29 ng/mL (2). 1. IOM ([place] of Medicine). 2010. Dietary reference intakes for calcium and D. [place]: The National Academies Press. 2. Bora Deluca, Danya TAVARES, et al. Evaluation, treatment, and prevention of vitamin D deficiency: an Endocrine Society clinical practice guideline. JCEM. 2010; 96(7):1911-30. Performed at: RN - [facility] [address] [id number] Coat Finisher: Doris Johnston MD, Phone: [phone] Note: Persistent reduction for 3 months [...] NORMAL Procedures Date Code Description Status 12/25/2018 04351 EKG-Tracing And Report Completed 02/27/2018 [id number] Mammogram Completed 12/13/2015 [id number] Mammogram Completed 06/02/2015 [id number] Bone Mineral Density Test Completed 11/24/2014 [id number] Mammogram Completed 06/02/2011 [id number] Colonoscopy Completed Medical Devices Description No Information Available Encounters Type Date Location Provider Dx Diagnosis Office Visit 01/20/2019 Physical Medicine & Kaylen Bhakta, R07.89 Other chest pain 2:30p Infectious Disease M.D. 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, bronchus and lung J44.9 Chronic obstructive pulmonary disease, unspecified R07.89 Other chest pain Office Visit 10/27/2018 Family Lemus I73.00 Raynaud's 1:45p Medicine [place] Swathi, SOUND TRUCK OPERATOR syndrome RD without gangrene F43.21 Adjustment disorder with depressed mood Office Visit 10/15/2018 Family Lemus I73.00 Raynaud's 1:00p Medicine [place] Swathi, SOUND TRUCK OPERATOR syndrome RD without gangrene F43.21 Adjustment disorder with depressed mood Office Visit 10/06/2018 1:00p Infusion Center [place], D50.9 Iron deficiency Lashaun Chung, CHROME TANNER anemia, unspecified 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 Office Visit 09/22/2018 Family [place], E61.1 Iron deficiency 1:30p Medicine [place] Swathi, SOUND TRUCK OPERATOR RD 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 S32.000A Wedge compression fracture of unsp lumbar vertebra, init I73.00 Raynaud's syndrome without gangrene Office Visit 09/21/2018 2:30p Oncology Office Lashaun Rios E61.1 Iron deficiency B., CHROME TANNER 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 R60.0 Localized edema Office Visit 08/20/2018 1:45p Pulmonology Jeremias Lowry, A31.0 Pulmonary MD mycobacterial infection I73.00 Raynaud's syndrome without gangrene J44.9 Chronic obstructive pulmonary disease, unspecified K21.9 Gastro-esophageal reflux disease without esophagitis J18.9 Pneumonia, unspecified organism Office Visit 08/12/2018 Family Lemus J18.9 Pneumonia, 9:00[facility] SOUND TRUCK OPERATOR unspecified RD organism R68.2 Dry mouth, unspecified L30.9 Dermatitis, unspecified D50.9 Iron deficiency anemia, unspecified Office Visit 07/30/2018 2:15p Family Medicine Edouard Robbins, L98.8 Ot disrd of the [place] MASON CEBALLOS skin and subcutaneous tissue Assessments [...] R07.89 Other chest pain Love Rizvi PA 10/27/2018 I73.00 Raynaud's syndrome without gangrene Swathi Lemus SOUND TRUCK OPERATOR 10/27/2018 F43.21 Adjustment disorder with depressed mood Swathi Lemus, SOUND TRUCK OPERATOR 10/15/2018 I73.00 Raynaud's syndrome without gangrene Swathi Lemus, SOUND TRUCK OPERATOR 10/15/2018 F43.21 Adjustment disorder with depressed mood Swathi Lemus, SOUND TRUCK OPERATOR 10/06/2018 D50.9 Iron deficiency anemia, unspecified Lashaun Rios, CHROME TANNER 10/06/2018 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 Lashaun Rios, CHROME TANNER 10/05/2018 E61.1 Iron deficiency Boufal, La, DO 10/05/2018 E61.1 Iron deficiency Oncology Nurse 10/05/2018 D50.9 Iron deficiency anemia, unspecified [place] Sutherland, DO 10/05/2018 D50.9 Iron deficiency anemia, unspecified Oncology Nurse 09/22/2018 E61.1 Iron deficiency Swathi Lemus, SOUND TRUCK OPERATOR 09/22/2018 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 Swathi Lemus, [facility] 09/22/2018 S32.000A Wedge compression fracture of Clliliam, Swathi, [facility] unspecified lumbar vertebra, i 09/22/2018 I73.00 Raynaud's syndrome without gangrene Swathi Lemus, [facility] 09/21/2018 E61.1 Iron deficiency Lashaun Rios, CHROME TANNER 09/21/2018 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 Lashaun Rios, CHROME TANNER 09/21/2018 R60.0 Localized edema Lashaun Rios, CHROME TANNER 09/11/2018 E61.1 Iron deficiency Albertheidi La, DO 09/11/2018 E61.1 Iron deficiency Oncology Nurse 09/11/2018 E50.9 Vitamin A deficiency, unspecified Ena La, DO 09/11/2018 E50.9 Vitamin A deficiency, unspecified Oncology Nurse 08/20/2018 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 Jeremias Lowry MD 08/20/2018 I73.00 Raynaud's syndrome without gangrene Jeremias Lowry MD 08/20/2018 J44.9 Chronic obstructive pulmonary disease, Jeremias Lowry MD unspecified 08/20/2018 K21.9 Gastro-esophageal reflux disease Jeremias Lowry MD without esophagitis 08/20/2018 J18.9 Pneumonia, unspecified organism Jeremias Lowry MD 08/12/2018 J18.9 Pneumonia, unspecified organism Keyana Lemusporfirioclayton, [facility] 08/12/2018 R68.2 Dry mouth, unspecified Clliliam Laurabeltrantono, SOUND TRUCK OPERATOR 08/12/2018 L30.9 Dermatitis, unspecified [facility], SOUND TRUCK OPERATOR 08/12/2018 D50.9 Iron deficiency anemia, unspecified Swathi Lemus FNP 08/03/2018 J18.9 Pneumonia, unspecified organism Clark ChristensenCELIA 08/03/2018 M79.602 Pain in left arm Clark ChristensenCELIA 08/03/2018 W19.xxxA Unspecified fall, initial encounter Clark ChristensenCELIA 08/03/2018 J44.9 Chronic obstructive pulmonary disease, Clark ChristensenCELIA unspecified 07/30/2018 L98.8 Other specified disorders of the skin Edouard Robbins MD and subcutaneous tissu Plan of Treatment Future Appointment(s):03/24/2019 1:20 pm - [facility] 28/2019 1:00 pm - Swathi Lemus FNP at [facility] Functional Status Functional Condition Comment Date Status Independent with all ADL's Active Glasses Active Complete lower and upper and lower dentures Active Mental Status Description No Information Available Referrals Refer to Dr Reason for Referral Status Appt Date Roger Arriaga MD Created [address] [facility] [address] [place] [address] [phone] Jaron Bates MD [facility] Created [address] [facility] [address] [place] [address] [phone] Jason Briones MD 88 YOF with know GERD has had marked worsening - Sent please evalaute and treat [address] [id number] [phone] Kaylen Bhakta M.D. RUL opacity , new from 3 months ago. History Scheduled of [facility] [address] [place] [address] [phone]
--- OUTSIDE RECORDS SUMMARY | 2019-02-28 10:04 | XMS REPORT | Continuity of Care Document ---
:1930 External Reference #:[id number] Author Name Aretha Holly Care Team Providers Name Role Phone Kaylen Bhakta M.D. 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 Problems Active Problems Provider Date Chronic [...] fracture of lumbar spine Margaret Babb, PNP-BC, DITCHER OPERATOR, Onset: 01/02 Ibclc Note: L1 25% Renal failure syndrome Ny Olmstead MD Onset: 08/25/2008 Hearing loss Ny Olmstead MD Onset: 03/29/2005 Osteoporosis Ny Olmstead MD Onset: 03/29/2005 Giant cell arteritis Ny Olmstead MD Onset: 03/20/2004 Polymyalgia rheumatica Ny Olmstead MD Onset: 03/20/2004 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 of Jackson, Julee Laila, MSN, Onset: 02/24 distal lower extremity DITCHER OPERATOR Cerebral meningioma Ny Olmstead MD Onset: [...] Norvasc 1 by mouth every 90tabs I73.00 [place], 10/15/2018 5mg Tablets day * for Raynaud's Jenniferleigh, syndrome DITCHER OPERATOR Sertraline HCL 1 tablet once daily 30tabs F43.21 [place], 10/15/2018 25mg Jenniferleigh, Tablets DITCHER OPERATOR Calcitonin ([place]) one spray nasaly 3.700ml S32.000A [place], 09/22/2018 once a day Jenporfirioferchayo, 200Unit/Act DITCHER OPERATOR Solution Spiriva Handihaler Inhale The Contents caps Ny Olmstead, 02/23/2017 Of One Capsule Via MD 18mcg Capsules Handihaler Once Daily Maximum Daily Dose = 1 Simvastatin Take One Tablet By taNy Soler, 04/04/2016 5mg Mouth AT Bedtime Tablets Medical Alert dx: polymyalgia Ny Olmstead, 02/23/2015 Device rheumatica; copd; MD at risk for falls Albuterol Sulfate 1 vial in nebulizer 75ml Ny Olmstead, every 4 hrs as MD (2.5mg/3ML) 0.083% needed for Nebulizer wheezing, sob [...] time Propranolol HCL Take One Tablet By 90taNy Soler, Mouth Every Day 40mg Tablets History Medications [facility] Omeprazole 1 tab po qd 30tabs Jaron Bates 12/25/2018 - 20mg Akila Smiley, [facility] Unknown Tablets DR Bernal one by mouth 30tabs I73.00 [place], 09/22/2018 - 2.5mg every day CELIA Echevarria 10/15/2018 Tablets Immunizations CPT Code Status Date Vaccine Lot # [id number] Given 07/18/2018 Shingrix Zoster Vaccine (HZV), Recombinant, Subunit, Adjuvante 17702 Given 02/26/2018 Influenza High Dose [id number] 49840 Given 02/05/2017 Influenza High Dose [id number] Q2038 Given 03/22/2016 Influenza Vaccine (Fluzone) Age 3 And Older 98583 Given 03/29/2015 Pneumococcal Conjugate Vaccine 13 Valent For [id number] Intramuscular Use Q2038 Given 02/22/2015 Influenza Vaccine (Fluzone) Age 3 And Older [id number] 35368 Given 09/18/2012 Tdap injection 30484 Given 07/29/2011 Zoster Vaccine Live Injection 26192 Given 04/13/2010 Pneumovax Injection 59121 Given 04/16/2004 Pneumovax Injection U-Td Given 10/31/1999 Td(Adult),Unspecified 61007 Given 11/03/1997 Pneumovax Injection Vital Signs Date Vital Result Comment 02/02/2019 10:45am BP Systolic Sitting Right Arm 139 mmHg BP Diastolic Sitting Right Arm 61 mmHg Heart Rate 95 /min Respiratory Rate 16 /min Height 61 inches 5'1" Weight 132.00 lb BMI (Body Mass Index) 24.9 kg/m2 BSA (Body Surface Area) 1.58 m2 [place] body weight in kilograms 48 kg O2 % BldC Oximetry 86 % Ra 01/27/2019 1:01pm BP Systolic Sitting Left Arm 127 mmHg BP Diastolic Sitting Left Arm 61 mmHg Heart Rate 66 /min Respiratory Rate 17 /min Height 61 inches 5'1" Weight 132.00 lb BMI (Body Mass Index) 24.9 kg/m2 BSA (Body Surface Area) 1.58 m2 [place] body weight in kilograms 48 kg Results Test Date Facility Test Result H/L Range Note Comprehensive 01/20/2019 [facility] Glucose 97 mg/dL Normal 74-106 1 Metabolic Panel [address] [place], [place] [id number] [phone] BUN 25 mg/dL High 7-18 Creatinine 1.1 [...] 91 U/L Normal 45-117 Laboratory test 01/20/2019 [facility] Troponin-I < 0.015 [address] ng/[place] [address] [phone] CBC W/Automated 01/20/2019 [facility] White Blood 5.4 K/uL Normal 3.1-[address] Count 0.7 [place] [address] [phone] Red Blood Count 4.46 M/uL Normal 3.90-5.40 [...] 40.4-72.8 Lymph % 24.7 % Normal 20.0-42.0 [place] % 6.3 % Normal 4.3-13.2 Eo% 2.4 % Normal 0.0-6.6 Bas% 0.2 % Normal 0.0-1.1 Immature Grans 0.2 % Normal 0.0-5.0 NRBC % 0.0 /100WBC < 10/ 100 WBC Neut# 3.57 K/uL Normal 1.8-7.0 Lymph # 1.33 K/uL Normal 1.0-4.0 [place] # 0.34 K/uL Normal 0.3-0.9 Eos # 0.13 K/uL Normal 0.0-0.5 Baso # 0.01 K/uL Normal 0.0-0.1 Immature Grans Absolute 0.01 K/uL NRBC # 0.00 K/uL Laboratory test finding 01/20/2019 [facility] Slide Review <pending> [address] [place] [address] [phone] Path Review: <pending> CBC W/Automated 12/25/2018 [facility] White Blood 7.0 K/uL Normal 3.1-10.[address] [place] [address] [phone] Red Blood Count 4.76 M/uL Normal 3.90-5.40 [...] 40.4-72.8 Lymph % 22.1 % Normal 20.0-42.0 [place] % 6.7 % Normal 4.3-13.2 Eo% 2.2 % Normal 0.0-6.6 Bas% 0.3 % Normal 0.0-1.1 Immature Grans 0.4 % Normal 0.0-5.0 NRBC % 0.0 /100WBC < 10/ 100 WBC Neut# 4.76 K/uL Normal 1.8-7.0 Lymph # 1.54 K/uL Normal 1.0-4.0 [place] # 0.47 K/uL Normal 0.3-0.9 Eos # 0.15 K/uL Normal 0.0-0.5 Baso # 0.02 K/uL Normal 0.0-0.1 Immature Grans Absolute 0.03 K/uL NRBC # 0.00 K/uL Slide Review 12/25/2018 [facility] Slide Review (SEE NOTE) [address] [place] [address] [phone] Laboratory test 11/09/2018 [facility] LDH 172 U/L Normal 84-24 6 finding [address] [facility] [address] [place] [address] [phone] Comprehensive 11/09/2018 [facility] Glucose 88 mg/dL Normal 74-10 Metabolic Panel [address] [place] [address] [phone] BUN 18 mg/dL Normal 7-18 Creatinine 0.9 [...] 98 U/L Normal 45-117 CBC W/Automated 11/09/2018 [facility] White Blood 5.7 K/uL Normal 3.1-10.[address] [place] [address] [phone] Red Blood Count 4.61 M/uL Normal 3.90-5.40 [...] 40.4-72.8 Lymph % 26.1 % Normal 20.0-42.0 [place] % 5.6 % Normal 4.3-13.2 Eo% 2.8 % Normal 0.0-6.6 Bas% 0.3 % Normal 0.0-1.1 Immature Grans 0.3 % Normal 0.0-5.0 NRBC % 0.0 /100WBC < 10/ 100 WBC Neut# 3.72 K/uL Normal 1.8-7.0 Lymph # 1.50 K/uL Normal 1.0-4.0 [place] # 0.32 K/uL Normal 0.3-0.9 Eos # 0.16 K/uL Normal 0.0-0.5 Baso # 0.02 K/uL Normal 0.0-0.1 Immature Grans Absolute 0.02 K/uL NRBC # 0.00 K/uL Reticulocyte 11/09/2018 [facility] Retic 23.5 pg Low 27.9-37.0 Count,Automated [address] [place] [address] [phone] Retic % 0.8 % Normal 0.5-1.8 Immature Retic Fraction 10.8 % Normal 2.9-15.5 Hemoglobinopathy Profile 11/09/2018 [facility] Hgb A 94.6 % Low 96.4-98.8 [address] [place], [place] [address] [phone] Hgb, 0.8 % 0.0-2.0 Hgb S 0.0 % 0.0 Hgb C 0.0 % 0.0 Hgb A2 4.6 % High 1.8-3.2 Hgb Variant 0 % 0.0 Interpretation: (SEE NOTE) 9 Iron-Tibc-%Sat 11/09/2018 [facility] Serum Iron 51 g/dL Normal 50-170 [address] [place] [address] [phone] Total Iron Binding Capacity 357 g/dL Normal 250-450 Transferrin %Saturation 14 % Normal 12-57 Laboratory test 11/09/2018 [facility] Ferritin 37 ng/mL Normal 8-252 finding [address] [place] [address] [phone] Laboratory test 11/09/2018 [facility] Vitamin 36.1 30.0-100. 10 finding 134 [facility] D,25-Hydroxy ng/mL 0 [place] [address] [phone] Vitamin B12 And 11/09/2018 [facility] Vitamin B12 506 pg/mL Normal 193-986 Folate [address] [place] [address] [phone] Folic Acid 14.8 ng/mL Normal 3.1-17.5 Urine Dipstick 10/15/2018 P Inhouse Ua Color Yellow Yellow Ua Clarity Cloudy Clear Ua Leuko neg Negative Ua Nitrite neg Negative Ua Urobilinogen 3.5 High 0.2 - 1.0 E.U./dL Ua Protein trace Negative Ua PH 7.0 6.5-7.5 Ua Blood neg Negative Ua Specific [place] 1.015 1.010-1.030 Ua Ketones neg Negative Ua Bilirubin neg Negative Ua Glucose neg Negative CBC W/Automated 10/05/2018 [facility] White 7.6 K/uL Normal 3.1-10.7 11 Diff 134 [facility] [place] [address] Count [phone] Red Blood Count 3.83 M/uL Low 3.90-5.40 [...] 40.4-72.8 Lymph % 17.4 % Low 20.0-42.0 [place] % 6.4 % Normal 4.3-13.2 Eo% 2.5 % Normal 0.0-6.6 Bas% 0.3 % Normal 0.0-1.1 Immature Grans 0.4 % Normal 0.0-5.0 NRBC % 0.0 /100WBC < 10/ 100 WBC Neut# 5.57 K/uL Normal 1.8-7.0 Lymph # 1.33 K/uL Normal 1.0-4.0 [place] # 0.49 K/uL Normal 0.3-0.9 Eos # 0.19 K/uL Normal 0.0-0.5 Baso # 0.02 K/uL Normal 0.0-0.1 Immature Grans Absolute 0.03 K/uL NRBC # 0.00 K/uL Vitamin B12 And 10/05/2018 [facility] Vitamin B12 442 pg/mL Normal 193-986 Folate [address], [place] [address] [phone] Folic Acid 13.1 ng/mL Normal 3.1-17.5 Comprehensive 10/05/2018 [facility] Glucose 79 mg/dL Normal 74-106 Metabolic Panel [address] [place] [address] [phone] BUN 17 mg/dL Normal 7-18 Creatinine 0.8 [...] Phosphatase 112 U/L Normal 45-117 Iron-Tibc-%Sat 10/05/2018 [facility] Serum Iron 45 g/dL Low 50-170 [address] [place] [address] [phone] Total Iron Binding Capacity 325 g/dL Normal 250-450 Transferrin %Saturation 14 % Normal 12-57 Laboratory 10/05/2018 [facility] Ferritin 185 ng/mL Normal 8-252 test finding [address] [place], [place] [address] [phone] Occult 09/23/2018 [facility] Fecal Occult Negative (Negativ 14, Blood,Triple [address] [facility] Blood #1 e) 15 [place] [address] [phone] Fecal Occult Blood #2 Negative (Negative) 16 Fecal Occult Blood #3 Negative (Negative) 17 CBC W/Automated 09/11/2018 [facility] White 7.1 K/uL Normal 3.1-10.7 18 Diff 134 [facility] [place] [address] Count [phone] Red Blood Count 3.64 M/uL Low 3.90-5.40 [...] 40.4-72.8 Lymph % 20.8 % Normal 20.0-42.0 [place] % 7.5 % Normal 4.3-13.2 Eo% 2.7 % Normal 0.0-6.6 Bas% 0.3 % Normal 0.0-1.1 Immature Grans 0.3 % Normal 0.0-5.0 NRBC % 0.0 /100WBC < 10/ 100 WBC Neut# 4.84 K/uL Normal 1.8-7.0 Lymph # 1.47 K/uL Normal 1.0-4.0 [place] # 0.53 K/uL Normal 0.3-0.9 Eos # 0.19 K/uL Normal 0.0-0.5 Baso # 0.02 K/uL Normal 0.0-0.1 Immature Grans Absolute 0.02 K/uL NRBC # 0.00 K/uL Laboratory test 09/11/2018 [facility] Ferritin 21 ng/mL Normal 8-252 finding [address] [place], [place] [address] [phone] Iron-Tibc-%Sat 09/11/2018 [facility] Serum Iron 30 g/dL Low 50-170 [address], [place] [address] [phone] Total Iron Binding Capacity 315 g/dL Normal 250-450 Transferrin %Saturation 10 % Low 12-57 Comprehensive 09/11/2018 [facility] Glucose 76 mg/dL Normal 74-106 Metabolic Panel [address], [place] [address] [phone] BUN 25 mg/dL High 7-18 Creatinine 0.9 [...] U/L Normal 45-117 Vitamin B12 And 09/11/2018 [facility] Vitamin B12 468 pg/mL Normal 193-[address] [place] [address] [phone] Folic Acid > 20.0 ng/mL High 3.1-17.5 Laboratory 09/11/2018 [facility] Vitamin 39.8 ng/mL 30.0-100.0 21 test finding [address] D,25-[place] [address] [phone] Laboratory 08/12/2018 [facility] Inhouse Fit Hemoccult negative test finding Urine Dipstick 08/12/2018 [facility] Inhouse Ua Leuko - Negative Ua Nitrite - Negative Ua Urobilinogen .2 0.2 - 1.0 E.U./dL Ua Protein - Negative Ua PH 5 Low 6.5-7.5 Ua Blood - Negative Ua Specific [place] 1.025 1.010-1.030 Ua Ketones - Negative Ua Bilirubin - Negative Ua Glucose - Negative 1 DR DOCKERY SENT TO ER, CP [...] hematologic and clinical correlation. Performed at: - [facility] [address] [id number] Drug Room Clerk: Doris Johnston MD, Phone: [phone] Vitamin D deficiency has been defined by the [place] of Medicine and an Endocrine Society practice guideline as a level of serum 25-OH vitamin D less than 20 ng/mL (1,2). The Endocrine Society went on to further define vitamin D insufficiency as a level between 21 and 29 ng/mL (2). 1. IOM ([place] of Medicine). 2010. Dietary reference intakes for calcium and D. [place]: The National Academies Press. 2. Josef MF, [place]ora [place], Danya TAVARES, et al. Evaluation, treatment, and prevention of vitamin D deficiency: an Endocrine Society clinical practice guideline. JCEM. 2010; 96(7):1911-30. Performed at: - [facility] [address] [id number] Drug Room Clerk: Doris Johnston MD, Phone: [phone] E61.1 D50.9 12 Note: Persistent reduction [...] D deficiency has been defined by the [place] of Medicine and an Endocrine Society practice guideline as a level of serum 25-OH vitamin D less than 20 ng/mL (1,2). The Endocrine Society went on to further define vitamin D insufficiency as a level between 21 and 29 ng/mL (2). 1. IOM ([place] of Medicine). 2010. Dietary reference intakes for calcium and D. [place]: The National Academies Press. 2. Josef MF, [place], Sudarshan-Lauri TAVARES, et al. Evaluation, treatment, and prevention of vitamin D deficiency: an Endocrine Society clinical practice guideline. JCEM. 2010; 96(7):1911-30. Performed at: RN - [facility] [address] [id number] Drug Room Clerk: Doris Johnston MD, Phone: [phone] Procedures Date Code Description Status 02/02/2019 42878 EKG-Tracing And Report Completed 12/25/2018 58085 EKG-Tracing And Report Completed 02/27/2018 [id number] Mammogram Completed 12/13/2015 [id number] Mammogram Completed 06/02/2015 507877173 Bone Mineral Density Test Completed 11/24/2014 [id number] Mammogram Completed 06/02/2011 [id number] Colonoscopy Completed Medical Devices Description No Information Available Encounters Type Date Location Provider Dx Diagnosis Office Visit 02/02/2019 Cardiology Office Jaron Bates R07.9 Chest pain, 10:40a MAkila Kasper, FACC unspecified I71.2 Thoracic aortic aneurysm, without rupture I10 Essential (primary) hypertension Office 01/27/2019 Family Lemus, K21.9 Gastro-esophageal Visit 1:00p Medicine [place] CELIA Echevarria reflux disease RD without esophagitis I73.00 Raynaud's syndrome without gangrene Z12.31 Encntr screen mammogram for malignant neoplasm of breast F43.21 Adjustment disorder with depressed mood Office Visit 01/20/2019 2:30p Physical Medicine & Mealisha, Kaylen, R07.89 Other chest Infectious Disease M.D. 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 Office 12/29/2018 Family Lemus K21.9 Gastro-esophageal Visit 1:15p Medicine [place] CELIA Echevarria reflux disease RD without esophagitis [...] 10/27/2018 Family Lemus, I73.00 Raynaud's 1:45p Medicine [place] Swathi, DITCHER OPERATOR syndrome RD without gangrene F43.21 Adjustment disorder with depressed mood Office Visit 10/15/2018 Family Lemus, I73.00 Raynaud's 1:00p Medicine [place] DEBRA EchevarriaP syndrome RD without gangrene F43.21 Adjustment disorder with depressed mood Office Visit 10/06/2018 1:00p Infusion Center [place], D50.9 Iron deficiency Lashaun Chung NP anemia, unspecified 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 Office Visit 09/22/2018 Family Lemus, E61.1 Iron deficiency 1:30p Medicine [place] Swathi, DITCHER OPERATOR RD 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 , rupture [facility] 02/02/2019 I10 Essential (primary) hypertension Jaron Bates M.D., [facility] 01/27/2019 K21.9 Gastro-esophageal reflux disease Swathi Lemus [...] Bhakta M.D. 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 Juli Sutherlandt, DO 10/27/2018 I73.00 Raynaud's syndrome without gangrene AllanLaurabeltrantono, [facility] 10/27/2018 F43.21 Adjustment disorder with depressed [facility], [facility] center[facility], [facility] mood 10/15/2018 I73.00 Raynaud's syndrome without gangrene AllanLaurachayo, [facility] 10/15/2018 F43.21 Adjustment disorder with depressed Clune, Alinekirkbride centerbeltrantono, [facility] mood 10/06/2018 D50.9 Iron deficiency anemia, unspecified Lashaun Rios, TURRET LATHE OPERATOR 10/06/2018 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 Lashaun Rios, TURRET LATHE OPERATOR 10/05/2018 E61.1 Iron deficiency La Suther[place], DO 10/05/2018 E61.1 Iron deficiency Oncology Nurse 10/05/2018 D50.9 Iron deficiency anemia, unspecified [place], DO 10/05/2018 D50.9 Iron deficiency anemia, unspecified Oncology Nurse 09/22/2018 E61.1 Iron deficiency ClSwathi ricketts, DITCHER OPERATOR 09/22/2018 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 Swathi Lemus, DITCHER OPERATOR 09/22/2018 S32.000A Wedge compression fracture of Clune, Swathi, DITCHER OPERATOR unspecified lumbar vertebra, i 09/22/2018 I73.00 Raynaud's syndrome without gangrene Swathi Lemus, DITCHER OPERATOR 09/21/2018 E61.1 Iron deficiency Lashaun Rios, TURRET LATHE OPERATOR 09/21/2018 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 at Physical Medicine & Infectious Svpzaxp1608/06/2019 1:20 pm - Jaron Bates M.D. , FACC at Cardiology Ygbpes4204/26/2019 1:15 pm - Swathi Lemus FNP at [facility]03/24/2019 1:20 pm - Love Rizvi PA at Pulmonology Functional Status Functional Condition Comment Date Status Independent with all ADL's Active Glasses Active Complete lower and upper and lower dentures Active Mental Status Description No Information Available Referrals Refer to Dr Reason for Referral Status Appt Date Jason Briones MD Patient Notified 02/16/2019 [address] [place] [address] [phone] Jaron Bates MD FACC Patient Notified 02/02/[address] [place] [address] [phone] Jason Briones MD 88 YOF with know GERD has had marked worsening - Sent please evalaute and treat [facility] [place] [address] [phone] Kaylen Bhakta M.D. RUL opacity , new from 3 months ago. History Scheduled of MAC [address] [place] [address] [phone]
--- OUTSIDE RECORDS SUMMARY | 2019-02-28 10:05 | XMS REPORT | Continuity of Care Document ---
:1930 External Reference #:[id number] Author Name Kaylen Bhakta M.D. Address [address] [place] [address] Care Team Providers Name Role Phone Kaylen Bhakta M.D. - Infectious Care Team Information [employer] Machine Operator [phone] Disease Swathi Lemus NP - Nurse Care Team Information [employer] Machine Operator Practitioner Love Rizvi PA - Physician Care Team Information [employer] Machine Operator Rug Dyer Problems Active Problems Provider Date Chronic obstructive [...] Ny Olmstead MD Onset: 09/27/2013 Hyperlipidemia Ny Olmsteda MD Onset: 06/05/2013 Low back pain Kaylen Bhakta M.D. 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 Julee Jacksonleida, MSN, Onset: 02/24 distal lower extremity INDUSTRIAL REFRIGERATION MECHANIC Cerebral meningioma Ny Olmstead MD Onset: 11/24/2014 [...] Norvasc 1 by mouth every 90tabs I73.00 [place], 10/15/2018 5mg Tablets day * for Swathi Raynaud's syndrome INDUSTRIAL REFRIGERATION MECHANIC Sertraline HCL Take 1/2 Tablet By 30tabs F43.21 [place], 10/15/2018 25mg Mouth Once Daily Alineferchayo, Tablets For 4 Days Then INDUSTRIAL REFRIGERATION MECHANIC Increase To 1 Tablet Once Daily Calcitonin ([place]) one spray nasaly 3.700ml S32.000A [place], 09/22/2018 once a day Sawthi, 200Unit/Act Solution INDUSTRIAL REFRIGERATION MECHANIC Spiriva Handihaler Inhale The caps Ny Olmstead, [...] mouth every 90caps Ny Olmstead, 40mg Capsules day Ibandronate Sodium Take 1 Tablet By [...] Jaron Bates 12/25/2018 - 20mg Akila Smiley, [facility] Unknown Tablets DR Bernal one by mouth 30tabs I73.00 [place], 09/22/2018 - 2.5mg every day CELIA Echevarria 10/15/2018 Tablets Immunizations CPT Code Status Date Vaccine Lot # [id number] Given 07/18/2018 Shingrix Zoster Vaccine (HZV), Recombinant, Subunit, Adjuvante 52047 Given 02/26/2018 Influenza High Dose [id number] 20205 Given 02/05/2017 Influenza High Dose [id number] Q2038 Given 03/22/2016 Influenza Vaccine (Fluzone) Age 3 And Older 90898 Given 03/29/2015 Pneumococcal Conjugate Vaccine 13 Valent For [id number] Intramuscular Use Q2038 Given 02/22/2015 Influenza Vaccine (Fluzone) Age 3 And Older [id number] 57259 Given 09/18/2012 Tdap injection 71778 Given 07/29/2011 Zoster Vaccine Live Injection 05067 Given 04/13/2010 Pneumovax Injection 11077 Given 04/16/2004 Pneumovax Injection U-Td Given 10/31/1999 Td(Adult),Unspecified 95095 Given 11/03/1997 Pneumovax Injection Vital Signs Date Vital Result Comment 01/20/2019 2:36pm BP Systolic Sitting Left Arm 121 mmHg BP Diastolic Sitting Left Arm 61 mmHg Heart Rate 61 /min Height 61 inches 5'1" Weight 131.00 lb BMI (Body Mass Index) 24.7 kg/m2 BSA (Body Surface Area) 1.58 m2 [place] body weight in kilograms 48 kg O2 % BldC Oximetry 96 % ra 12/29/2018 1:24pm BP Systolic Sitting Right Arm 135 mmHg BP Diastolic Sitting Right Arm 54 mmHg Heart Rate 70 /min Respiratory Rate 19 /min Height 61 inches 5'1" Weight 131.00 lb BMI (Body Mass Index) 24.7 kg/m2 BSA (Body Surface Area) 1.58 m2 [place] body weight in kilograms 48 kg Results Test Date Facility Test Result H/L Range Note Comprehensive 01/20/2019 [facility] Glucose 97 mg/dL Normal 74-106 1 Metabolic Panel [address] [place] [address] [phone] BUN 25 mg/dL High 7-18 Creatinine 1.1 [...] 91 U/L Normal 45-117 Laboratory test 01/20/2019 [facility] Troponin-I < 0.015 [address] ng/[place] [address] [phone] CBC W/Automated 01/20/2019 [facility] White Blood 5.4 K/uL Normal 3.1-[address] Count 0.7 [place] [address] [phone] Red Blood Count 4.46 M/uL Normal 3.90-5.40 [...] 40.4-72.8 Lymph % 24.7 % Normal 20.0-42.0 [place] % 6.3 % Normal 4.3-13.2 Eo% 2.4 % Normal 0.0-6.6 Bas% 0.2 % Normal 0.0-1.1 Immature Grans 0.2 % Normal 0.0-5.0 NRBC % 0.0 /100WBC < 10/ 100 WBC Neut# 3.57 K/uL Normal 1.8-7.0 Lymph # 1.33 K/uL Normal 1.0-4.0 [place] # 0.34 K/uL Normal 0.3-0.9 Eos # 0.13 K/uL Normal 0.0-0.5 Baso # 0.01 K/uL Normal 0.0-0.1 Immature Grans Absolute 0.01 K/uL NRBC # 0.00 K/uL Laboratory test finding 01/20/2019 [facility] Slide Review <pending> [address] [place] [address] [phone] Path Review: <pending> CBC W/Automated 12/25/2018 [facility] White Blood 7.0 K/uL Normal 3.1-10.[address] [place] [address] [phone] Red Blood Count 4.76 M/uL Normal 3.90-5.40 [...] 40.4-72.8 Lymph % 22.1 % Normal 20.0-42.0 [place] % 6.7 % Normal 4.3-13.2 Eo% 2.2 % Normal 0.0-6.6 Bas% 0.3 % Normal 0.0-1.1 Immature Grans 0.4 % Normal 0.0-5.0 NRBC % 0.0 /100WBC < 10/ 100 WBC Neut# 4.76 K/uL Normal 1.8-7.0 Lymph # 1.54 K/uL Normal 1.0-4.0 [place] # 0.47 K/uL Normal 0.3-0.9 Eos # 0.15 K/uL Normal 0.0-0.5 Baso # 0.02 K/uL Normal 0.0-0.1 Immature Grans Absolute 0.03 K/uL NRBC # 0.00 K/uL Slide Review 12/25/2018 [facility] Slide Review (SEE NOTE) [address] [place], [place] [id number] [phone] [facility] 11/09/2018 [facility] Glucose 88 mg/dL Normal 74-10 6 Metabolic Panel [address] [place] [address] [phone] BUN 18 mg/dL Normal 7-18 Creatinine 0.9 [...] 98 U/L Normal 45-117 CBC W/Automated 11/09/2018 [facility] White Blood 5.7 K/uL Normal 3.1-10.[address] [place] [address] [phone] Red Blood Count 4.61 M/uL Normal 3.90-5.40 [...] 40.4-72.8 Lymph % 26.1 % Normal 20.0-42.0 [place] % 5.6 % Normal 4.3-13.2 Eo% 2.8 % Normal 0.0-6.6 Bas% 0.3 % Normal 0.0-1.1 Immature Grans 0.3 % Normal 0.0-5.0 NRBC % 0.0 /100WBC < 10/ 100 WBC Neut# 3.72 K/uL Normal 1.8-7.0 Lymph # 1.50 K/uL Normal 1.0-4.0 [place] # 0.32 K/uL Normal 0.3-0.9 Eos # 0.16 K/uL Normal 0.0-0.5 Baso # 0.02 K/uL Normal 0.0-0.1 Immature Grans Absolute 0.02 K/uL NRBC # 0.00 K/uL Laboratory test 11/09/2018 [facility] Vitamin 36.1 30.0-100.0 [address] D,25-Hydroxy ng/[place] [address] [phone] Laboratory test 11/09/2018 [facility] LDH 172 U/L Normal 84-[address] [place] [address] [phone] Reticulocyte 11/09/2018 [facility] Retic 23.5 pg Low 27.9-37.0 Count,Automated [address] [facility] Hemoglobin [place], [place] [id number] [phone] Retic % 0.8 % Normal 0.5-1.8 Immature Retic Fraction 10.8 % Normal 2.9-15.5 Hemoglobinopathy Profile 11/09/2018 [facility] Hgb A 94.6 % Low 96.4-98.8 [address] [place], [place] [address] [phone] Hgb, 0.8 % 0.0-2.0 Hgb S 0.0 % 0.0 Hgb C 0.0 % 0.0 Hgb A2 4.6 % High 1.8-3.2 Hgb Variant 0 % 0.0 Interpretation: (SEE NOTE) 10 Vitamin B12 And 11/09/2018 [facility] Vitamin B12 506 pg/mL Normal 193-986 Folate [address] [place] [address] [phone] Folic Acid 14.8 ng/mL Normal 3.1-17.5 Laboratory test 11/09/2018 [facility] Ferritin 37 ng/mL Normal 8-252 finding [address] [place] [address] [phone] Iron-Tibc-%Sat 11/09/2018 [facility] Serum Iron 51 g/dL Normal 50-170 [address] [place] [address] [phone] Total Iron Binding Capacity 357 g/dL Normal 250-450 Transferrin %Saturation 14 % Normal 12-57 Urine Dipstick 10/15/2018 [facility] Ua Color Yellow Yellow Ua Clarity Cloudy Clear Ua Leuko neg Negative Ua Nitrite neg Negative Ua Urobilinogen 3.5 High 0.2 - 1.0 E.U./dL Ua Protein trace Negative Ua PH 7.0 6.5-7.5 Ua Blood neg Negative Ua Specific [place] 1.015 1.010-1.030 Ua Ketones neg Negative Ua Bilirubin neg Negative Ua Glucose neg Negative CBC W/Automated 10/05/2018 [facility] White 7.6 K/uL Normal 3.1-10.7 11 Diff [address] [place] [address] Count [phone] Red Blood Count 3.83 M/uL Low 3.90-5.40 [...] 40.4-72.8 Lymph % 17.4 % Low 20.0-42.0 [place] % 6.4 % Normal 4.3-13.2 Eo% 2.5 % Normal 0.0-6.6 Bas% 0.3 % Normal 0.0-1.1 Immature Grans 0.4 % Normal 0.0-5.0 NRBC % 0.0 /100WBC < 10/ 100 WBC Neut# 5.57 K/uL Normal 1.8-7.0 Lymph # 1.33 K/uL Normal 1.0-4.0 [place] # 0.49 K/uL Normal 0.3-0.9 Eos # 0.19 K/uL Normal 0.0-0.5 Baso # 0.02 K/uL Normal 0.0-0.1 Immature Grans Absolute 0.03 K/uL NRBC # 0.00 K/uL Laboratory test 10/05/2018 [facility] Ferritin 185 ng/mL Normal 8-252 finding [address] [place] [address] [phone] Iron-Tibc-%Sat 10/05/2018 [facility] Serum Iron 45 g/dL Low 50-170 [address] [place] [address] [phone] Total Iron Binding Capacity 325 g/dL Normal 250-450 Transferrin %Saturation 14 % Normal 12-57 Comprehensive 10/05/2018 [facility] Glucose 79 mg/dL Normal 74-106 Metabolic Panel [address] [place] [address] [phone] BUN 17 mg/dL Normal 7-18 Creatinine 0.8 [...] U/L Normal 45-117 Vitamin B12 And 10/05/2018 [facility] Vitamin B12 442 pg/mL Normal 193-986 Folate [address] [place] [address] [phone] Folic Acid 13.1 ng/mL Normal 3.1-17.5 Occult 09/23/2018 [facility] Fecal Negative (Negative) 14, 15 Blood,Triple [address] [facility] [place] [address] Blood [phone] Fecal Occult Blood #2 Negative (Negative) 16 Fecal Occult Blood #3 Negative (Negative) 17 CBC W/Automated 09/11/2018 [facility] White 7.1 K/uL Normal 3.1-10.7 18 Diff [address] [facility] [place] [address] Count [phone] Red Blood Count 3.64 M/uL Low 3.90-5.40 [...] 40.4-72.8 Lymph % 20.8 % Normal 20.0-42.0 [place] % 7.5 % Normal 4.3-13.2 Eo% 2.7 % Normal 0.0-6.6 Bas% 0.3 % Normal 0.0-1.1 Immature Grans 0.3 % Normal 0.0-5.0 NRBC % 0.0 /100WBC < 10/ 100 WBC Neut# 4.84 K/uL Normal 1.8-7.0 Lymph # 1.47 K/uL Normal 1.0-4.0 [place] # 0.53 K/uL Normal 0.3-0.9 Eos # 0.19 K/uL Normal 0.0-0.5 Baso # 0.02 K/uL Normal 0.0-0.1 Immature Grans Absolute 0.02 K/uL NRBC # 0.00 K/uL Laboratory test 09/11/2018 [facility] Ferritin 21 ng/mL Normal 8-252 finding [address] [place], [place] [address] [phone] Laboratory test 09/11/2018 [facility] Vitamin 39.8 30.0-100. 19 finding [address] [facility] D,25-Hydroxy ng/mL 0 [place], [place] [id number] [phone] Vitamin B12 And 09/11/2018 [facility] Vitamin B12 468 pg/mL Normal 193-986 Folate [address] [place], [place] [address] [phone] Folic Acid > 20.0 ng/mL High 3.1-17.5 Comprehensive 09/11/2018 [facility] Glucose 76 mg/dL Normal 74-106 Metabolic Panel [address] [place], [place] [address] [phone] BUN 25 mg/dL High 7-18 Creatinine 0.9 [...] Phosphatase 99 U/L Normal 45-117 Iron-Tibc-%Sat 09/11/2018 [facility] Serum Iron 30 g/dL Low 50-170 [address] [place] [address] [phone] Total Iron Binding Capacity 315 g/dL Normal 250-450 Transferrin %Saturation 10 % Low 12-57 Laboratory test finding 08/12/2018 [facility] Fit Hemoccult negative Urine Dipstick 08/12/2018 [facility] Ua Leuko - Negative Ua Nitrite - Negative Ua Urobilinogen .2 0.2 - 1.0 E.U./dL Ua Protein - Negative Ua PH 5 Low 6.5-7.5 Ua Blood - Negative Ua Specific [place] 1.025 1.010-1.030 Ua Ketones - Negative Ua Bilirubin - Negative Ua Glucose - Negative Comprehensive 08/03/2018 [facility] Glucose 99 mg/dL Normal 74-106 22 Metabolic Panel [address] [place] [address] [phone] BUN 23 mg/dL High 7-18 Creatinine 1.0 [...] 82 U/L Normal 45-117 Laboratory test 08/03/2018 [facility] Troponin-I < 0.015 [address] ng/[place] [address] [phone] CBC W/Automated 08/03/2018 [facility] White Blood 6.0 K/uL Normal 3.1-[address] Count 0.7 [place] [address] [phone] Red Blood Count 4.30 M/uL Normal 3.90-5.40 [...] 40.4-72.8 Lymph % 18.9 % Low 20.0-42.0 [place] % 7.5 % Normal 4.3-13.2 Eo% 2.5 % Normal 0.0-6.6 Bas% 0.3 % Normal 0.0-1.1 Neut# 4.22 K/uL Normal 1.8-7.0 Lymph # 1.13 K/uL Normal 1.0-4.0 [place] # 0.45 K/uL Normal 0.3-0.9 Eos # 0.15 K/uL Normal 0.0-0.5 Baso # 0.02 K/uL Normal 0.0-0.1 Slide Review 08/03/2018 [facility] Slide Review . [address] [place] [address] [phone] RBC Morphology Only 08/03/2018 [facility] Polychromasia 0-1+ [address] [place] [address] [phone] Hypochromia 0-1+ Poikilocytosis 1+ Anisocytosis 1+ Microcytosis [...] D deficiency has been defined by the [place] of [employer] and an Endocrine Society practice guideline as a level of serum 25-OH vitamin D less than 20 ng/mL (1,2). The Endocrine Society went on to further define vitamin D insufficiency as a level between 21 and 29 ng/mL (2). 1. IOM ([place] [employer]). 2010. Dietary reference intakes for calcium and D. [place]: The National Academies Press. 2. Bora Deluca, Danya TAVARES, et al. Evaluation, treatment, and prevention of vitamin D deficiency: an Endocrine Society clinical practice guideline. JCEM. 2010; 96(4):1911-30. 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 Suggest hematologic and clinical correlation. Performed at: - [facility] [address] [id number] Senior Analyst Market Intelligence: Doris Johnston MD, Phone: [phone] E61.1 D50.9 12 Note: Persistent reduction [...] D deficiency has been defined by the [place] [employer] and an Endocrine Society practice guideline as a level of serum 25-OH vitamin D less than 20 ng/mL (1,2). The Endocrine Society went on to further define vitamin D insufficiency as a level between 21 and 29 ng/mL (2). 1. IOM ([place] [employer]). 2010. Dietary reference intakes for calcium and D. [place]: The National Academies Press. 2. Bora Deluca, Danya TAVARES, et al. Evaluation, treatment, and prevention of vitamin D deficiency: an Endocrine Society clinical practice guideline. JCEM. 2010; 96(7):1911-30. Performed at: RN - [facility] [address] [id number] Senior Analyst Market Intelligence: Doris Johnston MD, Phone: [phone] Note: Persistent reduction for 3 months [...] NORMAL Procedures Date Code Description Status 12/25/2018 35012 EKG-Tracing And Report Completed 02/27/2018 [id number] Mammogram Completed 12/13/2015 [id number] Mammogram Completed 06/02/2015 620057097 Bone Mineral Density Test Completed 11/24/2014 [id number] Mammogram Completed 06/02/2011 [id number] Colonoscopy Completed Medical Devices Description No Information Available Encounters Type Date Location Provider Dx Diagnosis Office Visit 01/20/2019 Physical Medicine & Kaylen Bhakta, R07.89 Other chest pain 2:30p Infectious Disease MFaraz 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 Office 12/29/2018 Family Lemus, K21.9 Gastro-esophageal Visit 1:15p Medicine Eitzen CELIA Echevarria reflux disease RD without esophagitis R09.82 Postnasal drip Office Visit 12/25/2018 1:00p Pulmonology Belkys K21.9 Gastro- esophageal Love, PA reflux disease without esophagitis 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, bronchus and lung J44.9 Chronic obstructive pulmonary disease, unspecified R07.89 Other chest pain Office Visit 10/27/2018 Family Lemus I73.00 Raynaud's 1:45p Medicine Eitzen Swathi, INDUSTRIAL REFRIGERATION MECHANIC syndrome RD without gangrene F43.21 Adjustment disorder with depressed mood Office Visit 10/15/2018 Family Lemus I73.00 Raynaud's 1:00p Medicine Eitzen Swathi, INDUSTRIAL REFRIGERATION MECHANIC syndrome RD without gangrene F43.21 Adjustment disorder with depressed mood Office Visit 10/06/2018 1:00p Infusion Center [place], D50.9 Iron deficiency Lashaun Chung, [place] anemia, unspecified 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 Office Visit 09/22/2018 Family Lemus, E61.1 Iron deficiency 1:30p Medicine Eitzen DEBRA EchevarriaP RD 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 S32.000A Wedge compression fracture of unsp lumbar vertebra, init I73.00 Raynaud's syndrome without gangrene Office Visit 09/21/2018 2:30p Oncology Office Lashaun Rios E61.1 Iron deficiency B., [place] 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 R60.0 Localized edema Office Visit 08/20/2018 1:45p Pulmonology Jeremias Lowry, A31.0 Pulmonary MD mycobacterial infection I73.00 Raynaud's syndrome without gangrene J44.9 Chronic obstructive pulmonary disease, unspecified K21.9 Gastro-esophageal reflux disease without esophagitis J18.9 Pneumonia, unspecified organism Office Visit 08/12/2018 Family Lemus J18.9 Pneumonia, 9:00a Medicine Eitzen Swathi, INDUSTRIAL REFRIGERATION MECHANIC unspecified RD organism R68.2 Dry mouth, unspecified L30.9 Dermatitis, unspecified D50.9 Iron deficiency anemia, unspecified Office Visit 07/30/2018 2:15p Family Medicine ItzelEdouard, L98.8 Ot disrd of the Eitzen MASON CEBALLOS skin and subcutaneous tissue Assessments Date Code Description Provider 01/20/2019 R07.89 Other chest pain Kaylen Bhakta M.D. 01/20/2019 R07.0 Pain in throat Kaylen Bhakta M.D. 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 01/20/2019 R91.8 Other nonspecific abnormal finding of Kaylen Bhakta M.D. 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, bronchus and lung 12/25/2018 J44.9 Chronic obstructive pulmonary disease, Love Rizvi PA unspecified 12/25/2018 R07.89 Other chest pain Love Rizvi PA 10/27/2018 I73.00 Raynaud's syndrome without gangrene Swathi Lemus [facility] 10/27/2018 F43.21 Adjustment disorder with depressed mood Swathi Lemus [facility] 10/15/2018 I73.00 Raynaud's syndrome without gangrene Swathi Lemus, [facility] 10/15/2018 F43.21 Adjustment disorder with depressed mood Swathi Lemus, [facility] 10/06/2018 D50.9 Iron deficiency anemia, unspecified Lashaun Rios, [place] 10/06/2018 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 Lashaun Rios, [place] 10/05/2018 E61.1 Iron deficiency La Sutherland DO 10/05/2018 E61.1 Iron deficiency Oncology Nurse 10/05/2018 D50.9 Iron deficiency anemia, unspecified Ena La, DO 10/05/2018 D50.9 Iron deficiency anemia, unspecified Oncology Nurse 09/22/2018 E61.1 Iron deficiency ClSwathi ricketts, INDUSTRIAL REFRIGERATION MECHANIC 09/22/2018 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 ClSwathi ricketts, INDUSTRIAL REFRIGERATION MECHANIC 09/22/2018 S32.000A Wedge compression fracture of Clune, Swathi, INDUSTRIAL RE[employer]IGERATION MECHANIC unspecified lumbar vertebra, i 09/22/2018 I73.00 Raynaud's syndrome without gangrene ClLaura rickettsbeltrantono, INDUSTRIAL REFRIGERATION MECHANIC 09/21/2018 E61.1 Iron deficiency Lashaun Rios, [place] 09/21/2018 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 Lashaun Rios, [place] 09/21/2018 R60.0 Localized edema Lashaun Rios, [place] 09/11/2018 E61.1 Iron deficiency [place], DO [...] MD 08/12/2018 J18.9 Pneumonia, unspecified organism Swathi Lemus, INDUSTRIAL REFRIGERATION MECHANIC 08/12/2018 R68.2 Dry mouth, unspecified Clune, Alineferchayo, INDUSTRIAL REFRIGERATION MECHANIC 08/12/2018 L30.9 Dermatitis, unspecified Clune, Alineferchayo, INDUSTRIAL REFRIGERATION MECHANIC 08/12/2018 D50.9 Iron deficiency anemia, unspecified Clune, Jenniferleigh, INDUSTRIAL REFRIGERATION MECHANIC 08/03/2018 J18.9 Pneumonia, unspecified organism Brandon ChristensenCELIA hannah 08/03/2018 M79.602 Pain in left arm BellootilioBrandonClarkCELIA hannah 08/03/2018 W19.xxxA Unspecified fall, initial encounter Brandon ChristensenCELIA hannah 08/03/2018 J44.9 Chronic obstructive pulmonary disease, Fermin CELIA Rodas unspecified 07/30/2018 L98.8 Other specified disorders of the skin Edouard Robbins MD and subcutaneous tissu Plan of Treatment Future Appointment(s):03/24/2019 1:20 pm - Love Rizvi [facility] at [facility]/ 28/2019 1:00 pm - [facility] - Love Rizvi, PAK21.9 Gastro-esophageal reflux disease without esophagitisComments:What is acid reflux? ?? Acid reflux is when the acid that is normally in your stomach backs up into the esophagus, tube that carries food from your mouth to your stomach (figure 1). Another term for acid reflux is "gastroesophageal reflux disease," or GERD.What are the symptoms of acid reflux ? ?? The symptoms include:Burning in the chest, known as heartburnBurning in the throat or an acid taste in the throatStomach or chest painTrouble swallowingHaving a raspy voice or a sore throatUnexplained coughIs there anything I can do on my own to improve my symptoms? ?? Yes. You might feel better if you:Lose weight (if you are overweight)Raise the head of your bed by 6 to 8 inches (for example, by putting blocks of wood or rubber under 2 legs of the bed or a Styrofoam wedge under the mattress)Avoid foods that make your symptoms worse (examples include coffee, chocolate, alcohol, peppermint, and fatty foods)Cut down on the amount of alcohol you drinkStop smoking, if you smokeAvoid lying down for 3 hours after a mealWhat treatments can help with my acid reflux? ?? There are a few main types of medicines that can help with the symptoms of acid reflux: antacids, surface acting agents, histamine blockers, and proton pump inhibitors. All of these medicines work by reducing or blocking stomach acid. But they each do that in a different way.Antacids and surface acting agents can relieve mild symptoms, but they work only for a short time. Histamine blockers are stronger and last longer than antacids and surface acting agents. You can buy antacids and most histamine blockers without a prescription.Proton pump inhibitors are the most effective medicines in treating GERD. This is your Nexium. Sometimes acid reflux medicines are less expensive if you get them with a prescription. Other times nonprescription medicines are less expensive. If cost is a concern for you, ask your pharmacist how you might reduce the cost of your medicines.Should I see a doctor or nurse about my acid reflux? ?? Some people can manage their acid reflux on their own by changing their habits or taking nonprescription medicines. Butyou should see a doctor or nurse if:Your symptoms are severe or last a long timeYou cannot seem to control your symptomsYou have had symptoms for many yearsYou should also see a doctor or nurse right away if you:Have trouble swallowing, or feel as though food gets "stuck" on the way downLose weight when you are not trying toHave chest painChoke when you eatVomit blood or have bowel movements that arered, black, or look like tar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, bronchus and lungNew Xrays:CT, Chest W Out Contrast, Ordered: 12/25/18Comments: We will have Dr. Burden review your CT Chest and I will order a blood count and forward those results to her as well. We will plan on repeating the Chest CT beginning of March to follow as well.Referral:Kaylen Bhakta M.D., Infectious DiseasesFollow up:Please move follow up from 04/2019 to 03/2019 after Chest CTJ44.9 Chronic obstructive pulmonary disease, unspecifiedComments: Avoid pollution, fumes and second hand smoke.Drink at least 10 glasses fluid daily. Continue your Spiriva Handihaler one capsule inhaled daily, as needed rescue inhaler. We will update a spirometry atthis time as well.R07.89 Other chest painNew Orders:EKG, Ordered: 12/25/18Comments:Your EKG is not concerning for any new changes at this time. Please continue your Nexium daily. Addition of TUMS, please do not take more than 4 tablets every day as these may cause interactions with your other medications.AllNew Medication:[facility] Omeprazole 20 mg - 1 tab po qd Goals 12/25/2018 - Belkys Love, PAK21.9 Gastro-esophageal reflux disease without esophagitisTo have GERD symptoms less than twice a week.J44.9 Chronic obstructive pulmonary disease, unspecifiedMaintain activity level despite shortness of breath. Improve exercise capacity. Reduce frequency andseverity of exacerbations(flare-ups). Prolong survival and improve quality of life. Functional Status Functional Condition Comment Date Status Independent with all ADL's Active Glasses Active Complete lower and upper and lower dentures Active Mental Status Description No Information Available Referrals Refer to Reason for Referral Status Appt Date Roger Arriaga MD Created [address] [facility] [address] [place] [id number] [phone] Jaron Bates MD [facility] Created [address] [facility] [address] [place] [address] [phone] Jason Briones MD 88 YOF with know GERD has had marked worsening - Sent please evalaute and treat [address] [place] [address] [phone] Kaylen Bhakta M.D. RUL opacity , new from 3 months ago. History Scheduled of [facility] [address] [place] [address] [phone]
--- NOTE | 2019-02-28 10:06 | UC ---
Cardiac HPI - HPI Summary HPI Summary: 88 year old female with multiple medical problems presents today after awakening with 10/10 chest pain with associated sob. She state the pain started on her right side and has moved toward the center of her chest. The pain is not reproducible. She was at a craft fair yesterday and is uncertain if she did anything, did not have pain at the time. She is on NTG patch on 9pm, off 9am and took it off this morning. She sees Dr. Bates and is uncertain why she has the NTG patch nor why she is seeing him. She is allergic to ASA (states throat swelled). Additionally, she has had left LE swelling for the past few weeks, has a [place] filter in place. - History of Current Complaint Chief Complaint: UCChestPain Stated Complaint: CHEST PAINS,SOB,RT SIDE RIB PAIN Time Seen by Provider: 02/28/19 09:28 Hx Obtained From: Patient Onset/Duration: Sudden Onset - this morning upon awakening. Initial Severity: Severe Pain Intensity: 8 Chest Pain Location: Mid Sternal - moved from right lateral to mid-sternal. Character: Heaviness, Sharp/Stabbing Aggravating Factor(s): Movement Associated Signs & Symptoms: Positive: SOB, Swelling - left lower extremity.. Negative: Numbness, Tingling, Weakness, Dizziness - Risk Factors Pulmonary Embolism Risk Factors: DVT - previous DVT, has Jarek filter. Atrial Fibrillation: Negative AMI/ACS Risk Factors: Nitroglycerine Use, Hypertension - Allergy/Home Medications Allergies/Adverse Reactions: Allergies Allergy/AdvReac Type Severity Reaction Status Date / Time aspirin Allergy Severe throat Verified 02/28/19 09:51 swelling cefuroxime [From Ceftin] Allergy Unknown GI Upset Verified 02/28/19 09:51 hydroxyzine [From Atarax] Allergy Unknown Unknown Verified 02/28/19 09:51 Reaction Details ketorolac [From Acular] Allergy Unknown Unknown Verified 02/28/19 09:51 Reaction Details morphine Allergy Unknown confusion Verified 02/28/19 09:51 Penicillins Allergy Unknown Unknown Verified 02/28/19 09:51 Reaction Details Sulfa (Sulfonamide Allergy Unknown Unknown Verified 02/28/19 09:51 Antibiotics) Reaction Details budesonide [From Symbicort] Allergy Unknown Verified 02/28/19 09:51 Reaction Details citalopram Allergy Unknown Verified 02/28/19 09:51 Reaction Details formoterol [From Symbicort] Allergy Unknown Verified 02/28/19 09:51 Reaction Details Home Medications: Home Medications Albuterol 2.5MG/3ML (0.083%)* [Ventolin 2.5 MG/3 ML NEB.ZACHERY*] 2.5 mg INH Q6H PRN 02/28/19 [History Confirmed 02/28/19] Calcitonin NASAL(NF) [Fortical(NR)] 1 mg ALT NARE DAILY 02/28/19 [History Confirmed 02/28/19] Ibandronate TAB(NF) [Boniva(NF)] 150 mg PO Q30D 02/28/19 [History Confirmed ] Nitroglycerin 0.4 MG/HR PATCH* [Nitroglycerin 10 MG PATCH*] 1 patch TRANSDERM DAILY 02/28/19 [History Confirmed 02/28/19] Polyethylene Glycol 3350* [Miralax*] 17 gm PO SEE INSTRUCTIONS 02/28/19 [ History Confirmed 02/28/19] Sertraline* [Zoloft*] 25 mg PO DAILY 02/28/19 [History Confirmed 02/28/19] amLODIPine TAB* [Norvasc 5 mg TAB*] 5 mg PO DAILY 02/28/19 [History Confirmed ] PMH/Surg Hx/FS Hx/Imm Hx Previously Healthy: Yes Cardiovascular History: Cardiac Disease - on NTG patch and sees butcher., Hypertension, Deep Vein Thrombosis - hsitory, with [place] filter Respiratory History: Bronchitis, Pneumonia GI/ History: Gastroesophageal Reflux - Surgical History Surgical History: Yes Surgery Procedure, Year, and Place: green field filter safe for mri up to 1.5T only. lt ankle surgery. appy. tonsilectomy. sangita. cataracts. repaired bleeding ulcer - Family History Known Family History: Positive: Hypertension, Respiratory Disease - Social History Alcohol Use: Rare Substance Use Type: None Smoking Status (MU): Former Smoker Type: Cigarettes Length of Time of Smoking/Using Tobacco: 1 PPD x 25 Years Have You Smoked in the Last Year: No When Did the Patient Quit Smoking/Using Tobacco: ~1944 - Immunization History Most Recent Influenza Vaccination: 01/2014 Review of Systems All Other Systems Reviewed And Are Negative: Yes Constitutional: Positive: Fatigue. Negative: Fever, Chills Skin: Negative: Rash, Bruising Eyes: Negative: Blurred Vision, Diplopia ENT: Positive: Negative Respiratory: Positive: Shortness Of Breath, Cough Cardiovascular: Positive: Chest Pain. Negative: Palpitations Gastrointestinal: Negative: Abdominal Pain, Vomiting, Nausea Genitourinary: Positive: Negative Motor: Positive: Negative Neurovascular: Positive: Negative Musculoskeletal: Positive: Negative Neurological: Positive: Negative Psychological: Positive: Negative Is Patient Immunocompromised?: No Physical Exam Triage Information Reviewed: Yes Appearance: Well-Appearing Vital Signs: Initial Vital Signs Temp 97.8 F 02/28/19 09:45 Pulse 65 02/28/19 09:45 Resp 18 02/28/19 09:45 BP 146/69 02/28/19 09:45 Pulse Ox 100 02/28/19 09:45 Vital Signs Reviewed: Yes Eyes: Positive: Conjunctiva Clear ENT: Positive: Normal ENT inspection Neck: Positive: Supple, Nontender, No Lymphadenopathy Respiratory: Positive: Chest non-tender - non-reproducible, Lungs clear, Normal breath sounds. Negative: Respiratory distress, Crackles, Rhonchi, Wheezing Cardiovascular: Positive: RRR, No Murmur, Pulses Normal Abdomen Description: Positive: Nontender, Soft Musculoskeletal: Positive: Edema @ - left lower extremity Neurological: Positive: Alert Psychological Exam: Normal Skin: Negative: Rashes, Significant Lesion(s) Diagnostics - EKG Cardiac Rate: NL Cardiac Rhythm: Sinus: Normal Ectopy: None ST Segment: Normal EKG Comparison: Other - no prior for comparison - Differential Diagnoses - Chest Pain Differential Diagnosis/HQI/PQRI: Acute OR, ACS, Angina, Pulmonary Embolism - Clinical Impression Provider Diagnosis: Chest pain Discharge ED - Sign-Out/Discharge Documenting (check all that apply): Patient Departure All imaging exams completed and their final reports reviewed: No Studies - Discharge Plan Condition: Guarded Disposition: TRANS HIGHER LVL OF CARE FAC Referrals: Ny Olmstead MD [Primary Care Provider] - Additional Instructions: You are being transferred to the Emergency Department for further evaluation of your chest pain. - Billing Disposition and Condition Condition: GUARDED Disposition: Trans Higher Lvl of Care Fac
[2019-02-28 10:29] VITALS: BP 148/65
== END 2019-02-28 10:29 | disposition short-term general hospital (02) ==
LOC: UCCORT 09:26
DX: R07.9 Chest pain, unspecified (principal); Z88.6 Allergy status to analgesic agent; R88.0 Cloudy (hemodialysis) (peritoneal) dialysis effluent; Z88.5 Allergy status to narcotic agent; Z88.0 Allergy status to penicillin; Z88.2 Allergy status to sulfonamides; Z88.8 Allergy status to other drugs, medicaments and biological substances; I51.9 Heart disease, unspecified; I10 Essential (primary) hypertension; Z86.718 Personal history of other venous thrombosis and embolism; Z87.891 Personal history of nicotine dependence
CPT/HCPCS: 93005; 99214; G0463